=== PATIENT | female | born 1995 | race Two or more races ===

== ENCOUNTER 2017-05-15 11:17 | Day surgery (SDC) | payer MEDICAID ==
--- NOTE | 2017-05-15 10:24 | PREOP HISTORY & PHYSICAL ---
DATE OF ADMISSION/SURGERY: 05/15/2017 IDENTIFICATION: A 22-year-old G2, P1-0-0-1 with an 8-week 1-day intrauterine , EDC is 12/24/2017. HISTORY OF PRESENT ILLNESS: The patient presents today with 2 problems. The first is that she desires a sexually transmitted disease screening. Her ex- boyfriend had given her chlamydia in the past and she feels like this is happening again secondary to her vaginal discharge that is yellow. In addition, she has recognized that she is . She had an unsure LMP of 03/19/2017. This gave an EDC of 12/24/2017 at 8 weeks 0 days. A transabdominal ultrasound from the clinic shows a single viable intrauterine measuring 8 weeks 0 days, crown/rump length of 1.58 cm, and 168 beats per minute. I had a long discussion with the patient regarding the risks, benefits, alternatives, indications and expectations of: 1) Termination of the with suction dilatation and curettage. 2) Keeping the and the baby once he/she is born. 3) Continuing with the but placing the baby up for adoption. I stressed to her that this is a very difficult situation and that there is no right answer with the exception of the decision that she makes. Though very tearful, she has opted to terminate the . As difficult as it is for her to take care of herself and a 2-year-old son, she cannot imagine having to take care of another child. I verbalized my support for her and will help her through whichever decision she has made. Currently, the patient is doing well. She denies any nausea, vomiting, fevers, chills, diarrhea or constipation. She also denies any cramping or vaginal bleeding. PAST MEDICAL HISTORY: Depression. PAST SURGICAL HISTORY: None. ALLERGIES: NO KNOWN DRUG ALLERGIES. MEDICATIONS: None. SOCIAL HISTORY: The patient, though living with her parents, is going to get a place of her own in the near future with her son, Rai. Santoro is 2 years old. She is working currently and does not want to lose her job. She recently broke up with her boyfriend, with whom she got with. PAST OBSTETRICAL HISTORY: One term spontaneous vaginal delivery of her son Yvan with Apgars of 9 and 9 at 1 and 5 minutes respectively. Weight was 5 pounds 2 ounces. Complications of gestational hypertension with the patient being on labetalol 100 mg b.i.d. Yvan's father is different from this current . PAST GYNECOLOGIC HISTORY: She has a history of chlamydia at least twice and fears she has been exposed recently to it again. She has not had any Pap smears. FAMILY HISTORY: Noncontributory. REVIEW OF SYSTEMS: She is negative for nausea, vomiting, fevers, chills, diarrhea, constipation. OBJECTIVE VITAL SIGNS: Weight is 128 pounds, height is 64 inches, BMI is 22, blood pressure 114/76. GENERAL: The patient is a well-developed, well-nourished, / female. She is intelligent and understandably upset, tearful and frightened. HEENT: Within normal limits. CARDIOVASCULAR: Rate is regular. No murmurs or rubs. PULMONARY: Lungs clear to auscultation bilaterally. ABDOMEN: Soft and nontender. No peritoneal signs. Transabdominal ultrasound revealed a single viable intrauterine measuring 8 weeks 0 days with a crown/rump length of 1.58 cm. heart rate is 168 beats per minute. Thin prep Pap smear, gonorrhea/chlamydia, Affirm performed today. PLAN 1. Discussed with the patient the risks, benefits, alternatives, indications and expectations of a suction dilatation and curettage. I discussed with her the risk of infection and hemorrhage most commonly in this procedure, and inadvertent uterine perforation. Unfortunately, in her situation if she made her decision to proceed with the termination, the sooner she has this done the decreased risks she will have. The patient has decided to proceed with termination. Due to her lack of insurance, we will need to have her see the patient financial rep at [facility] first. Consent forms have been signed. 2. Should we be able to proceed with a suction dilatation and curettage tomorrow on 05/15/2017, we will have her take Cytotec 600 mcg sublingually in Ambulatory Surgery in order to facilitate the procedure. Will also anticipate giving her Methergine for the next 2 days in order to minimize any postop bleeding. 3. She will see me for routine 2-week postop visit as well as to discuss contraception. She did have the Mirena IUD in the past but had it removed secondary to concern of a chlamydial infection. JOB #: [id number] EXT JOB #:[id number] [id number]
[~2017-05-15 11:17] MED LIST: CELECOXIB 100 MG CAPSULE PO ONE; ceFAZolin 1 GM VIAL ONE; miSOPROStol 200 MCG TABLET ONE
[2017-05-15] MEDS ORDERED: LACTATED RINGERS 1,000 ML IV ONE (11:38)
[2017-05-15] MEDS ORDERED: miSOPROStol 200 MCG TABLET PR ONE (12:22)
[2017-05-15] MEDS ORDERED: ACETAMINOPHEN 1,000 MG/100 ML 100 ML IV ONE (12:38)
--- NOTE | 2017-05-15 12:47 | OPERATIVE REPORT ---
Operative Report - Other Other Information/Narrative: Date of operation: 05/15/2017 Surgeon: Bertha Mccoy DO FACOG Telegraph Operator: None Anesthesiologist: Alejandra Rivers MD Anesthesia: GET Pre-op Dx: 1. 22 yo with a 8w1d IUP 2. Desired termination of Post-op Dx: 1. 22 yo with a 8w1d IUP 2. Desired termination of Procedure: Suction dilation and curettage Findings: Products of conception Specimens: Uterine curettings EBL: 50 mL Drains: None Complications: None Dictation #: [id number]
[2017-05-15 14:17] VITALS: BP 114/55
--- NOTE | 2017-05-16 06:45 | OPERATIVE REPORT ---
DATE OF SURGERY: 05/15/2017 00:00:00 SURGEON: Bertha Mccoy DO. HOT TOP LINER HELPER: None. ANESTHESIOLOGIST: Alejandra Rivers MD. ANESTHESIA: General, endotracheal tube. PREOPERATIVE DIAGNOSES 1. A 22-year-old G2, P1-0-0-1 with an 8-week and 1-day intrauterine . 2. Desires termination of . POSTOPERATIVE DIAGNOSES 1. A 22-year-old G2, P1-0-0-1 with an 8-week and 1-day intrauterine . 2. Desires termination of . PROCEDURE: Suction dilatation and curettage. FINDINGS: Products of conception. SPECIMENS: Uterine curettings. ESTIMATED BLOOD LOSS: 50 mL. DRAINS: None. COMPLICATIONS: None. BRIEF HISTORY: This is a patient of [facility], [place] who found herself in a difficult position. She had an undesired and wanted to proceed with termination of the . I counseled her on her options of termination, maintaining the and keeping the baby, and finally maintaining the and adopting the baby out. Furthermore, should she desire termination of , I discussed with the patient the risks, benefits, alternatives, indications, and expectations of suction dilatation and curettage. Included in our discussion were the risks of hemorrhage, infection, and uterine perforation. After all of her questions were answered to her satisfaction, she verbalized her desire to proceed with termination of via suction dilatation and curettage. Consent forms have been signed. OPERATION IN DETAIL: The patient was identified, consented, and taken to the operating room where IV access was already in place. Sequential compression devices were placed on the lower extremities and turned on. She was given 1 gram on Ancef IV. She was then given satisfactory general endotracheal tube anesthesia as per Dr. Rivers. She was then prepped and draped in the normal sterile fashion in the lithotomy position using yellow-fin stirrups. Her bladder was also drained with in and out catheter. Timeout was performed, which correctly identified the patient, site of procedure, and the procedure itself. A single tooth tenaculum was placed on the anterior lip of the cervix. The cervix was then dilated to 8-Uzbek. The uterus was sounded to 8 cm. With a curved rigid 8-Uzbek suction curette, the uterus was satisfactorily curetted. This was continued until uterine cry was palpated throughout the entire endometrium. At this point in time, the procedure had been completed. All instruments were removed out of the vagina. The cervix and the vagina were significantly stable. The patient tolerated the procedure well. She came back to her room in stable condition. She will be discharged home later today after postoperative criteria have been met. She has been given prescriptions for Methergine for prevention of postoperative hemorrhage. This is in addition to the Cytotec 200 mcg 4 tablets that were given to her per rectum at the completion of the procedure. She also will take Midol and has a prescription for Vicodin for any breakthrough pain. She is to see me in 2 weeks for a postoperative examination as well. We will discuss in detail what form of contraception she would like to have. She understands to call me should she have any worsening fevers, chills, abdominal pain, vaginal bleeding. All sponge, lap, and needle counts were correct per nurse report. JOB #: [id number] EXT JOB #:[id number] ALANNA
== END 2017-05-15 11:18 | disposition home or self-care (01) ==
LOC: SDS 11:17
PROVIDERS: ATTEND Obstetrics & Gynecology
PROC: 10A07Z6 Abortion of Products of Conception, Vacuum, Via Natural or Artificial Opening (ICD-10-PCS; principal; 2017-05-15 12:30)
DX: Z33.2 Encounter for elective termination of pregnancy (principal); F17.200 Nicotine dependence, unspecified, uncomplicated
CPT/HCPCS: 59841; A9270; J0131; J7120; 88305

== ENCOUNTER 2017-05-16 13:21 | Emergency (ER) | payer MEDICAID ==
[2017-05-16] MEDS ORDERED: KETOROLAC 60 MG/2 ML VIAL IVP STA (14:23)
[2017-05-16] MEDS ORDERED: SODIUM CHLORIDE 0.9% 1,000 ML IV ONE (14:23)
--- NOTE | 2017-05-16 14:25 | ED Physician Documentation ---
History of Present Illness - Stated complaint Stated Complaint: SURGICAL SITE PAIN - Chief complaint Chief Complaint: Abd Pain - History obtained from History obtained from: Patient - History of Present Illness Timing: Today - Additonal information Additional information: 22 y/o female had a D&C done yesterday in the OR by Dr. Mccoy and she had the usual post op pain and went home last night feeling well. She has developed severe pain in the suprapubic area. She is feeling light headed and has severe cramping pain. The vicoden she took at 1247 did not help. Review of Systems Constitutional: reports: Myalgias. denies: Fever, Chills Eyes: denies: Decreased vision Ears: denies: Ear pain Nose: denies: Congestion Throat: denies: Sore throat Cardiac: denies: Chest pain / pressure Respiratory: denies: Dyspnea, Cough GI: reports: Abdominal Pain, Nausea : denies: Dysuria, Frequency Skin: denies: Rash Musculoskeletal: reports: Back pain. denies: Neck pain, Extremity pain Neurologic: denies: Generalized weakness, Focal weakness, Numbness PD PAST MEDICAL HISTORY - Past Medical History Cardiovascular: None Respiratory: None Endocrine/Autoimmune: None GI: None : None HEENT: None Psych: Anxiety Musculoskeletal: None Derm: None - Past Surgical History Past Surgical History: No - Present Medications Home Medications: Ambulatory Orders Medication Instructions Recorded Confirmed Hydrocodone/Acetaminophen [Vicodin 1 tab PO .FREQ 05/16/17 05/16/17 5-300 mg Tablet] - Allergies Allergies/Adverse Reactions: Allergies Allergy/AdvReac Type Severity Reaction Status Date / Time No Known Drug Allergies Allergy Verified 05/16/17 13:29 - Social History Does the pt smoke?: Yes Smoking Status: Current every day smoker Does the pt drink ETOH?: No Does the pt have substance abuse?: No PD ED PE NORMAL - Vitals Vital signs reviewed: Yes (normal ) - General General: No acute distress, Well developed/nourished - HEENT HEENT: Atraumatic, PERRL, EOMI - Neck Neck: Supple, no meningeal sign - Cardiac Cardiac: RRR, No murmur - Respiratory Respiratory: No respiratory distress, Clear bilaterally - Abdomen Abdomen: Soft, Other (There is specific suprapubic tenderness that is reproducible. ) - Back Back: No CVA TTP, No spinal TTP - Derm Derm: Normal color, Warm and dry - Extremities Extremities: No deformity, No edema - Neuro Neuro: Alert and oriented X 3, No motor deficit, No sensory deficit, Normal speech - Psych Psych: Normal mood, Normal affect Results - Vitals Vitals: Vital Signs - 24 hr 05/16/17 05/16/17 05/16/17 13:27 15:29 15:56 Temperature 36.8 C Heart Rate 88 106 H 98 Respiratory 19 18 16 Rate Blood Pressure 97/63 113/52 L 95/46 L O2 Saturation 98 98 97 Oxygen O2 Source Room air - Labs Labs: Laboratory Tests 05/16/17 05/16/17 05/16/17 13:50 13:50 16:50 WBC 11.7 H RBC 4.07 L Hgb 12.5 Hct 36.2 L MCV 89.1 MCH 30.9 MCHC 34.6 RDW 12.9 Plt Count 162 MPV 8.1 Neut # 9.9 H Lymph # 1.6 [place] # 0.2 Eos # 0.0 Baso # 0.0 Absolute Nucleated RBC 0.00 Nucleated RBCs 0.0 Sodium 135 Potassium 2.7 L Chloride 105 Carbon Dioxide 20 L Anion Gap 10.0 BUN 8 Creatinine 0.6 Estimated GFR (MDRD) 126 Glucose 108 H Calcium 8.9 Total Bilirubin 0.6 AST 22 ALT 16 Alkaline Phosphatase 60 Total Protein 7.0 Albumin 4.3 Globulin 2.7 Albumin/Globulin Ratio 1.6 Lipase 16 L Urine Color YELLOW Urine Clarity HAZY Urine pH 6.5 Ur Specific [place] <=1.005 Urine Protein NEGATIVE Urine Glucose (UA) NEGATIVE Urine Ketones NEGATIVE Urine Occult Blood LARGE H Urine Nitrite NEGATIVE Urine Bilirubin NEGATIVE Urine Urobilinogen 0.2 (NORMAL) Ur Leukocyte Esterase TRACE H Urine RBC 0-5 Urine WBC 6-10 H Urine WBC Clumps PRESENT Ur Squamous Epith Cells MOD Squamous H Urine Bacteria Many H Ur Microscopic Review INDICATED Urine Culture Comments NOT INDICATED Procedures - Bedside sono Bedside sono by EMP: with the use of bedside ultrasound there is a small amount of fluid in the culdesac. There is no free fluid in Olson's pouch. PD MEDICAL DECISION MAKING - ED course Complexity details: reviewed old records, reviewed results, re-evaluated patient , considered differential, d/w patient, d/w family, d/w clinical practice consultant (Dr. Black recommends treatment of the pain and treatment of a chlamydia infection that was apparently not treated previously ) ED course: 22-year-old female had a D&C done yesterday and today has acute cramping postoperative pain that is out of control. Here in the emergency department an IV is begun and she is given IV Toradol with some relief and she is subsequently given intravenous Dilaudid with good relief of her pain. She has a Chlamydia infection that has not been treated and here in the emergency department she is given 1 g of azithromycin intravenously. With the use of bedside ultrasound the pelvis is imaged and there is trace fluid present. Her potassium is low and this is replaced as well with potassium bicarbonate 25mEq X 2 . Departure - Departure Disposition: 01 Home, Self Care Clinical Impression: Post-operative pain, Hypokalemia, Chlamydia Instructions: ED Potassium Deficiency, Dilation and Curettage, ED Chlamydia Female Follow-Up: Bertha Mccoy DO [Provider Admit Priv/Credential] -
[2017-05-16] MEDS ORDERED: KETOROLAC 30 MG/ML VIAL ONE (14:31)
[2017-05-16 14:38] LABS: EOSINOPHILS % (AUTO) 0.3 %; HCT - HEMATOCRIT 36.2 % (37.0-47.0); HGB - HEMOGLOBIN 12.5 g/dL (12.0-16.0); LYMPHOCYTES # (AUTO) 1.6 10^3/uL (1.5-3.5); LYMPHOCYTES % (AUTO) 13.6 %; MEAN CORPUSCULAR HEMOGLOBIN 30.9 pg (27.0-31.0); MEAN CORPUSCULAR HGB CONC 34.6 g/dL (32.0-36.0); MEAN CORPUSCULAR VOLUME 89.1 fL (81.0-99.0); MEAN PLATELET VOLUME 8.1 fL (7.9-10.8); MONOCYTES # (AUTO) 0.2 10^3/uL (0.0-1.0); MONOCYTES % (AUTO) 1.6 %; NEUTROPHILS # (AUTO) 9.9 10^3/uL (1.5-6.6); NEUTROPHILS % (AUTO) 84.5 %; RED BLOOD COUNT 4.07 10^6/uL (4.20-5.40); RED CELL DISTRIBUTION WIDTH 12.9 % (12.0-15.0); UNCORRECTED WHITE BLOOD COUNT 11.7 x10^3/uL; WHITE BLOOD COUNT 11.7 x10^3/uL (4.8-10.8)
[2017-05-16 14:48] LABS: ALBUMIN/GLOBULIN RATIO 1.6 (1.0-2.2); BILIRUBIN,TOTAL 0.6 mg/dL (0.2-1.0); CALCIUM 8.9 mg/dL (8.5-10.3); CREATININE 0.6 mg/dL (0.4-1.0); POTASSIUM 2.7 mmol/L (3.5-5.0)
[2017-05-16] MEDS ORDERED: AZITHROMYCIN INJ 1,000 MG in SODIUM CHLORIDE 0.9% 250 ML IV STA (15:11)
[2017-05-16] MEDS ORDERED: POTASSIUM BICARB 25 MEQ TABLET PO STA ×2 (15:12→16:23)
[2017-05-16] MEDS ORDERED: SODIUM CHLORIDE 0.9% 250 ML IV ONE (15:16)
[2017-05-16] MEDS ORDERED: POTASSIUM BICARB 25 MEQ TABLET PO ONE ×2 (15:16→16:28)
[2017-05-16] MEDS ORDERED: HYDROmorphone 1 MG/ML SYRINGE IVP STA (15:30)
[2017-05-16] MEDS ORDERED: HYDROmorphone 1 MG/ML SYRINGE ONE (15:38)
[2017-05-16 17:03] LABS: BILIRUBIN,URINE NEGATIVE (NEGATIVE); PH,URINE 6.5 PH (5.0-7.5); UA w/ MICROSCOPIC CHARGE YES
[2017-05-16 17:09] LABS: UR CULTURE IF IND NOT INDICATED
[2017-05-16] MEDS ORDERED: cefTRIAXone 1 GM in SODIUM CHLORIDE 0.9% MINIBAG 100 ML IV STA (17:10)
[2017-05-16] MEDS ORDERED: cefTRIAXone 1 GM VIAL ONE (17:27)
[2017-05-16 19:13] VITALS: BP 105/57
== END 2017-05-16 17:52 | disposition home or self-care (01) ==
LOC: ED 13:21
DX: G89.18 Other acute postprocedural pain (principal); R10.2 Pelvic and perineal pain; E87.6 Hypokalemia; A74.9 Chlamydial infection, unspecified
CPT/HCPCS: 36415; 80053; 81001; 83690; 85025; 96361; 96365; 96367; 96375; 99284; 99285; A9270; J1170; 81003; 87086

== ENCOUNTER 2017-07-05 11:41 | Emergency (ER) | payer MEDICAID ==
[2017-07-05 11:53] VITALS: BP 119/79
--- NOTE | 2017-07-05 12:23 | ED Physician Documentation ---
PD HPI BACK PAIN - Stated complaint Stated Complaint: BACK PX - Chief complaint Chief Complaint: Back Pain - History obtained from History obtained from: Patient, Family (mother) - History of Present Illness Timing - onset: How many weeks ago (2) Timing - details: Waxing and waning Location: Lower Quality: Pain, Spasm Associated symptoms: No: Fever, Weakness, Numbness, Incontinent of urine Worsened by: Movement, Lifting Contributing factors: Lifting Similar symptoms before: Has not had sx before - Treatment prior to arrival Treatment prior to arrival: Tylenol and ibuprofen without relief. - Additional information Additional information: The patient is an otherwise healthy 22-year-old female who presents with lower back pain of 2 weeks' duration. 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 She has been using Tylenol and ibuprofen without relief. She denies fever, dysuria, urinary incontinence, or neurologic deficits in her lower extremities. She denies history of similar symptoms in the past. Review of Systems Constitutional: denies: Fever Nose: denies: Congestion Cardiac: denies: Chest pain / pressure Respiratory: denies: Dyspnea, Cough GI: denies: Abdominal Pain, Nausea, Vomiting : denies: Dysuria, Incontinent Skin: denies: Rash Musculoskeletal: reports: Back pain. denies: Neck pain, Extremity pain Neurologic: denies: Focal weakness, Numbness, Headache PD PAST MEDICAL HISTORY - Past Medical History Cardiovascular: None Respiratory: None Endocrine/Autoimmune: None GI: None : None HEENT: None Psych: Anxiety Musculoskeletal: None Derm: None - Past Surgical History Past Surgical History: No - Present Medications Home Medications: Ambulatory Orders Medication Instructions Recorded Confirmed Cyclobenzaprine [Flexeril] 10 mg PO TID PRN #20 tablet 07/05/17 HYDROcod/ACETAM 5/325 [[place] 5/325] 1 - 2 ea PO Q6H PRN #15 tablet 07/05/17 - Allergies Allergies/Adverse Reactions: Allergies Allergy/AdvReac Type Severity Reaction Status Date / Time No Known Drug Allergies Allergy Verified 07/05/17 11:53 - Social History Does the pt smoke?: Yes Smoking Status: Current every day smoker Does the pt drink ETOH?: No Does the pt have substance abuse?: No - Immunizations Immunizations are current?: Yes - POLST Patient has POLST: No PD ED PE NORMAL - Vitals Vital signs reviewed: Yes (normal) - General General: Alert and oriented X 3, Well developed/nourished - HEENT HEENT: Atraumatic, EOMI - Neck Neck: No bony TTP - Cardiac Cardiac: RRR, No murmur - Respiratory Respiratory: No respiratory distress, Clear bilaterally - Abdomen Abdomen: Soft, Non tender, No organomegaly - Back Back: No CVA TTP, No spinal TTP, Other (There is tenderness to palpation in the paralumbar musculature, more on the left than the right. Associated paraspinous muscle spasms are detected.) - Derm Derm: No rash - Extremities Extremities: No edema, No calf tenderness / cord, Other (Straight leg raise test is negative bilaterally.) - Neuro Neuro: Alert and oriented X 3, No motor deficit, No sensory deficit, Other ( Deep tendon reflexes are 2+ and equal bilaterally at the patellar and Achilles tendons.) Results - Vitals Vitals: Oxygen O2 Source Room air PD MEDICAL DECISION MAKING - ED course Complexity details: considered differential, d/w patient, d/w family ED course: The patient's presentation is most consistent with acute lumbar strain. There is no clinical indication for imaging studies at this time. I discussed with her and her mother symptomatic treatment, outpatient follow-up, as well as potentially worrisome signs or symptoms that should prompt reevaluation in the emergency department. She is being discharged with prescriptions for Flexeril and for Vicodin, 15 tablets. Departure - Departure Disposition: 01 Home, Self Care Clinical Impression: Low back pain Qualifiers: Chronicity: acute Back pain laterality: bilateral Sciatica presence: without sciatica Qualified Code(s): M54.5 - Low back pain Condition: Stable Instructions: ED Sprain Strain Lumbar Follow-Up: Sherley Joy ARNP [Primary Care Provider] - Prescriptions: Cyclobenzaprine [Flexeril] 10 mg PO TID PRN #20 tablet PRN Reason: Spasms HYDROcod/ACETAM 5/325 [[place] 5/325] 1 - 2 ea PO Q6H PRN #15 tablet PRN Reason: Pain Comments: Apply ice pack to your lower back intermittently for the next 3 or 4 days. You can use ibuprofen, up to 600 mg 3 times daily for its anti-inflammatory effect. You can use Vicodin as prescribed if needed for pain. You can use Flexeril as prescribed as needed for muscle spasm. Let pain be your guide to activity level. Follow-up with your primary physician within 1-2 weeks. Call to schedule an appointment. Return to the emergency department if you develop increasing pain, urinary incontinence, numbness or weakness in your legs, or otherwise worsening symptoms. Forms: Activity restrictions Discharge Date/Time: 07/05/17 12:33
== END 2017-07-05 12:33 | disposition home or self-care (01) ==
LOC: ED 11:41
DX: M54.5 Low back pain (principal); F17.200 Nicotine dependence, unspecified, uncomplicated
CPT/HCPCS: 99283

== ENCOUNTER 2017-09-18 17:54 | Emergency (ER) | payer MEDICAID ==
[2017-09-18 18:05] VITALS: BP 123/89
[2017-09-18] MEDS ORDERED: CYCLOBENZAPRINE 10 MG TABLET PO STA (18:17)
[2017-09-18] MEDS ORDERED: KETOROLAC 60 MG/2 ML VIAL IM STA (18:17)
[2017-09-18] MEDS ORDERED: DEXAMETHASONE 10 MG/ML VIAL PO STA (18:17)
--- NOTE | 2017-09-18 18:22 | ED Physician Documentation ---
PD HPI BACK PAIN - Stated complaint Stated Complaint: BACK PX - Chief complaint Chief Complaint: Back Pain - History obtained from History obtained from: Patient, Family, Friend - History of Present Illness Timing - onset: Today Timing - duration: Hours (1) Timing - details: Abrupt onset Pain level max: 8 Pain level now: 8 Location: Lower, Right, Left Quality: Pain, Spasm, Aching, Similar to prior episodes Associated symptoms: No: Fever, Weakness, Numbness, Incontinent of urine, Unable to urinate, Hematuria, Incontinent of stool Improves with: Rest Worsened by: Movement, Lifting Contributing factors: Other (started when lifting her child) Similar symptoms before: Diagnosis (back spams) Recently seen: Not recently seen (last seen here 3 months ago for same.) Review of Systems Ten Systems: 10 systems reviewed and negative Constitutional: denies: Fever, Chills Throat: denies: Sore throat Cardiac: denies: Chest pain / pressure GI: denies: Abdominal Pain, Nausea, Vomiting, Diarrhea : denies: Dysuria, Frequency, Hesitancy, Discharge, Now EGA Skin: denies: Rash Musculoskeletal: denies: Neck pain Neurologic: denies: Focal weakness, Numbness, Headache PD PAST MEDICAL HISTORY - Past Medical History Cardiovascular: None Respiratory: None Endocrine/Autoimmune: None GI: None : None HEENT: None Psych: Anxiety Musculoskeletal: None Derm: None - Past Surgical History Past Surgical History: Yes - Present Medications Home Medications: Ambulatory Orders Medication Instructions Recorded Confirmed Cyclobenzaprine [Flexeril] 10 mg PO TID PRN #20 tablet 09/18/17 Meloxicam [Mobic] 15 mg PO DAILY PRN #20 tablet 09/18/17 - Allergies Allergies/Adverse Reactions: Allergies Allergy/AdvReac Type Severity Reaction Status Date / Time No Known Drug Allergies Allergy Verified 07/05/17 11:53 - Social History Does the pt smoke?: Yes Smoking Status: Current every day smoker Does the pt drink ETOH?: No Does the pt have substance abuse?: No - Immunizations Immunizations are current?: Yes - POLST Patient has POLST: No PD ED PE NORMAL - Vitals Vital signs reviewed: Yes - General General: Alert and oriented X 3, No acute distress, Well developed/nourished - HEENT HEENT: PERRL, Moist mucous membranes - Neck Neck: Supple, no meningeal sign - Cardiac Cardiac: RRR, Strong equal pulses - Respiratory Respiratory: No respiratory distress, Clear bilaterally - Abdomen Abdomen: Soft, Non tender, Non distended - Back Back: Other (No midline tenderness to palpation. There is paraspinal spasm present bilateral lower lumbar.) - Derm Derm: Warm and dry - Extremities Extremities: No edema, No calf tenderness / cord, Other (normal bilateral lower extremity patellar and ankle jerk reflexes. 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, No motor deficit, No sensory deficit - Psych Psych: Normal mood, Normal affect Results - Vitals Vitals: Vital Signs - 24 hr 09/18/17 18:02 Temperature 36.9 C Heart Rate 89 Respiratory 18 Rate Blood Pressure 123/89 H O2 Saturation 98 Oxygen O2 Source Room air PD MEDICAL DECISION MAKING - ED course Complexity details: re-evaluated patient, considered differential (no cauda equina, no spinal epidural abscess, no fracture, no aortic dissection or evidence of aneursym rupture), d/w patient ED course: Patient is a 22-year-old female who presents to the emergency department with what appears to be musculoskeletal strain of the low back. No evidence of cauda equina, epidural abscess. Normal neurological exam. Steady gait. Feels better after Flexeril and Toradol. Also given dexamethasone. No midline tenderness to suggest fracture. Patient counseled regarding signs and symptoms for which I believe and urgent re-evaluation would be necessary. Patient with good understanding of and agreement to plan and is comfortable going home at this time This document was made in part using voice recognition software. While efforts are made to proofread this document, sound alike and grammatical errors may occur. Departure - Departure Disposition: 01 Home, Self Care Clinical Impression: Back spasm Condition: Good Instructions: ED Low Back Pain Injury Follow-Up: your,doctor in 1 week [Other] Prescriptions: Cyclobenzaprine [Flexeril] 10 mg PO TID PRN #20 tablet PRN Reason: Spasms Meloxicam [Mobic] 15 mg PO DAILY PRN #20 tablet PRN Reason: pain Comments: Return if you worsen. This should improve over the next few days. Discharge Date/Time: 09/18/17 18:42
[2017-09-18] MEDS ORDERED: DEXAMETHASONE 10 MG/ML VIAL ONE (18:26)
[2017-09-18] MEDS ORDERED: CYCLOBENZAPRINE 10 MG TABLET PO ONE (18:26)
[2017-09-18] MEDS ORDERED: KETOROLAC 60 MG/2 ML VIAL ONE (18:26)
== END 2017-09-18 18:42 | disposition home or self-care (01) ==
LOC: ED 17:54
DX: M62.830 Muscle spasm of back (principal); F17.200 Nicotine dependence, unspecified, uncomplicated
CPT/HCPCS: 96372; 99283

== ENCOUNTER 2017-10-28 23:19 | Outpatient (CLI) | payer MEDICAID | END 2017-10-28 23:20 | disposition critical access hospital (66) | LOC: EMS 23:19 | PROVIDERS: ATTEND Surgery | DX: R10.9 Unspecified abdominal pain (principal) | CPT/HCPCS: A0425; A0427 ==

== ENCOUNTER 2017-10-28 23:36 | Emergency (ER) | payer MEDICAID ==
--- NOTE | 2017-10-28 23:57 | ED Physician Documentation ---
PD HPI FEMALE - Stated complaint Stated Complaint: ABD PAIN, CRAMPING - Chief complaint Chief Complaint: Abd Pain - History obtained from History obtained from: Patient - History of Present Illness Timing - onset: How many days ago (2) Timing - duration: Days (2) Timing - details: Gradual onset, Still present, Waxing and waning Associated symptoms: Abdominal pain (lower abd suprapubic area), Vaginal discharge, Urinary frequency. No: Fever, Genital sore/lesion, Dysuria Contributing factors: Sexually active. No: , Exposed to STD Similar symptoms before: Has not had sx before Recently seen: Clinic ([facility] about 3-4 weeks ago and treated for BV found on regular exam. She says she took much of the medication but had trouble remembering to do it twice daily.) Review of Systems Constitutional: denies: Fever Throat: denies: Oral lesions / sores, Sore throat Respiratory: denies: Dyspnea, Cough GI: reports: Abdominal Pain, Nausea, Vomiting : reports: Frequency, Discharge. denies: Dysuria, Missed period Skin: denies: Rash, Lesions PD PAST MEDICAL HISTORY - Past Medical History Cardiovascular: None Respiratory: None Endocrine/Autoimmune: None GI: None : None HEENT: None Psych: Anxiety Musculoskeletal: None Derm: None - Past Surgical History Past Surgical History: Yes - Present Medications Home Medications: Ambulatory Orders Medication Instructions Recorded Confirmed Fluconazole [Diflucan] 150 mg PO ONCE #1 tablet 10/29/17 Ondansetron Odt [Zofran] 4 mg TL Q6H PRN #15 tablet 10/29/17 - Allergies Allergies/Adverse Reactions: Allergies Allergy/AdvReac Type Severity Reaction Status Date / Time No Known Drug Allergies Allergy Verified 10/28/17 23:44 - Social History Does the pt smoke?: Yes Smoking Status: Current every day smoker Does the pt drink ETOH?: No Does the pt have substance abuse?: No - Immunizations Immunizations are current?: Yes - POLST Patient has POLST: No PD ED PE NORMAL - Vitals Vital signs reviewed: Yes - General General: Alert and oriented X 3, No acute distress, Well developed/nourished - HEENT HEENT: Pharynx benign - Neck Neck: Supple, no meningeal sign, No adenopathy - Cardiac Cardiac: RRR, No murmur - Respiratory Respiratory: Clear bilaterally - Abdomen Abdomen: Soft, Non tender, Non distended - Female Female : Pot Puller present, Other (external normal. Vault with thicker white discharge c/w yeast and wall inflammation and redness. Cervical os without discharge. ) - Rectal Rectal: Deferred - Back Back: No CVA TTP - Derm Derm: Normal color, Warm and dry Results - Vitals Vitals: Vital Signs - 24 hr 10/28/17 10/29/17 10/29/17 23:42 02:21 02:35 Temperature 36.7 C 36.8 C 36.5 C Heart Rate 86 80 80 Respiratory 18 18 16 Rate Blood Pressure 127/75 118/64 132/77 H O2 Saturation 97 99 100 Oxygen O2 Source Room air - Labs Labs: Microbiology 10/29/17 01:10 Wet Prep - Final Vaginal Laboratory Tests 10/28/17 10/29/17 10/29/17 23:16 00:20 00:20 WBC 8.0 RBC 4.31 Hgb 13.1 Hct 38.1 MCV 88.5 MCH 30.3 MCHC 34.2 RDW 12.4 Plt Count 212 MPV 7.8 L Neut # 6.2 Lymph # 1.2 L [place] # 0.5 Eos # 0.1 Baso # 0.0 Absolute Nucleated RBC 0.00 Nucleated RBC % 0.0 Sodium 139 Potassium 3.4 L Chloride 107 Carbon Dioxide 21 Anion Gap 11.0 BUN 7 Creatinine 0.6 Estimated GFR (MDRD) 126 Glucose 159 H Calcium 9.1 Total Bilirubin 0.3 AST 32 ALT 19 Alkaline Phosphatase 83 Total Protein 7.5 Albumin 4.2 Globulin 3.3 Albumin/Globulin Ratio 1.3 Lipase 16 L Urine Color YELLOW Urine Clarity CLEAR Urine pH 6.0 Ur Specific [place] <=1.005 Urine Protein NEGATIVE Urine Glucose (UA) NEGATIVE Urine Ketones NEGATIVE Urine Occult Blood NEGATIVE Urine Nitrite NEGATIVE Urine Bilirubin NEGATIVE Urine Urobilinogen 0.2 (NORMAL) Ur Leukocyte Esterase NEGATIVE Ur Microscopic Review NOT INDICATED Urine Culture Comments NOT INDICATED Urine HCG, Qual NEGATIVE PD MEDICAL DECISION MAKING - ED course Complexity details: considered differential (seems like yeast vaginitis, and there is vaginal wall inflammation, which presumedly is leading to the partial urinary retention (200 ml).), d/w patient Departure - Departure Disposition: 01 Home, Self Care Clinical Impression: Yeast vaginitis, Lower abdominal pain, Acute urinary retention Condition: Stable Record reviewed to determine appropriate education?: Yes Instructions: ED Abdominal Pain Unkn Cause, ED Vaginal Infec Fungal Caprice Prescriptions: Fluconazole [Diflucan] 150 mg PO ONCE #1 tablet Ondansetron Odt [Zofran] 4 mg TL Q6H PRN #15 tablet PRN Reason: Nausea / Vomiting Comments: The lab test today does not show any bacterial vaginal infection so that appears to have cleared. However it does appear to be a yeast infection now and that can be treated with a single dose antifungal now repeated in 3 or 4 days. Use Tylenol or ibuprofen if needed for pains. You were having some urinary retention and I think that accounts for the lower abdominal cramping and fullness. Your urine test does not show signs of infection. I presume there is some inflammation in the vaginal wall causing the outflow problem from the bladder. This should improve with treatment of the vaginitis. Recheck if not improved over the next 2-3 days. Use ondansetron if needed for nausea. Discharge Date/Time: 10/29/17 02:43
[2017-10-29 00:18] LABS: BILIRUBIN,URINE NEGATIVE (NEGATIVE)
[2017-10-29 00:19] LABS: HCG UR QUAL NEGATIVE; UA CHARGE (STRIP ONLY) YES; UR CULTURE IF IND NOT INDICATED
[2017-10-29] MEDS ORDERED: KETOROLAC 60 MG/2 ML VIAL IVP STA (00:24)
[2017-10-29] MEDS ORDERED: SODIUM CHLORIDE 0.9% 1,000 ML IV ONE (00:24)
[2017-10-29] MEDS ORDERED: ONDANSETRON 4 MG/2 ML VIAL IVP STA (00:24)
[2017-10-29] MEDS ORDERED: KETOROLAC 30 MG/ML VIAL ONE (00:42)
[2017-10-29] MEDS ORDERED: ONDANSETRON 4 MG/2 ML VIAL ONE (00:42)
[2017-10-29 00:48] LABS: BASOPHILS % (AUTO) 0.3 %; EOSINOPHILS # (AUTO) 0.1 10^3/uL (0.0-0.7); EOSINOPHILS % (AUTO) 0.7 %; HCT - HEMATOCRIT 38.1 % (37.0-47.0); HGB - HEMOGLOBIN 13.1 g/dL (12.0-16.0); LYMPHOCYTES # (AUTO) 1.2 10^3/uL (1.5-3.5); LYMPHOCYTES % (AUTO) 15.2 %; MEAN CORPUSCULAR HEMOGLOBIN 30.3 pg (27.0-31.0); MEAN CORPUSCULAR HGB CONC 34.2 g/dL (32.0-36.0); MEAN CORPUSCULAR VOLUME 88.5 fL (81.0-99.0); MEAN PLATELET VOLUME 7.8 fL (7.9-10.8); MONOCYTES # (AUTO) 0.5 10^3/uL (0.0-1.0); MONOCYTES % (AUTO) 6.1 %; NEUTROPHILS # (AUTO) 6.2 10^3/uL (1.5-6.6); NEUTROPHILS % (AUTO) 77.7 %; RED BLOOD COUNT 4.31 10^6/uL (4.20-5.40); RED CELL DISTRIBUTION WIDTH 12.4 % (12.0-15.0)
[2017-10-29 00:58] LABS: ALBUMIN/GLOBULIN RATIO 1.3 (1.0-2.2); BILIRUBIN,TOTAL 0.3 mg/dL (0.2-1.0); CALCIUM 9.1 mg/dL (8.5-10.3); CREATININE 0.6 mg/dL (0.4-1.0); POTASSIUM 3.4 mmol/L (3.5-5.0); TOTAL PROTEIN 7.5 g/dL (6.7-8.2)
[2017-10-29] MEDS ORDERED: DEXAMETHASONE 10 MG/ML VIAL IVP STA (02:03)
[2017-10-29] MEDS ORDERED: FLUCONAZOLE 100 MG TABLET PO STA (02:04)
[2017-10-29] MEDS ORDERED: FLUCONAZOLE 100 MG TABLET ONE (02:17)
[2017-10-29] MEDS ORDERED: DEXAMETHASONE 10 MG/ML VIAL ONE (02:18)
[2017-10-29 02:43] VITALS: BP 132/77
== END 2017-10-29 02:43 | disposition home or self-care (01) ==
LOC: EDUNIT# → EDBD → ED 23:36
DX: N89.8 Other specified noninflammatory disorders of vagina (principal); B37.3 Candidiasis of vulva and vagina; R33.9 Retention of urine, unspecified
CPT/HCPCS: 51798; 80053; 81003; 81025; 83690; 85025; 87210; 87491; 87591; 96361; 96374; 96375; 99283; 99284; A9270; 81001; 87086

== ENCOUNTER 2018-01-14 16:06 | Outpatient (CLI) | payer MEDICAID | END 2018-01-14 16:07 | disposition home or self-care (01) | LOC: LAB.R 16:06 | PROVIDERS: ATTEND Nurse Practitioner Obstetrics & Gynecology | DX: R82.90 Unspecified abnormal findings in urine (principal); N76.0 Acute vaginitis | CPT/HCPCS: 87086; 87480; 87491; 87510; 87591; 87660 ==

== ENCOUNTER 2018-01-16 10:17 | Outpatient (CLI) | payer MEDICAID | END 2018-01-16 10:18 | disposition home or self-care (01) | LOC: LAB.R 10:17 | PROVIDERS: ATTEND Nurse Practitioner Obstetrics & Gynecology | DX: N76.0 Acute vaginitis (principal) | CPT/HCPCS: 81599; 87102 ==

== ENCOUNTER 2018-01-26 22:52 | Outpatient (CLI) | payer MEDICAID | END 2018-01-26 22:53 | disposition critical access hospital (66) | LOC: EMS 22:52 | PROVIDERS: ATTEND Surgery | DX: R07.9 Chest pain, unspecified (principal) | CPT/HCPCS: A0425; A0429 ==

== ENCOUNTER 2018-01-26 23:11 | Emergency (ER) | payer MEDICAID ==
[2018-01-27 00:44] LABS: BASOPHILS % (AUTO) 0.4 %; EOSINOPHILS % (AUTO) 0.7 %; HGB - HEMOGLOBIN 14.2 g/dL (12.0-16.0); LYMPHOCYTES # (AUTO) 1.4 10^3/uL (1.5-3.5); LYMPHOCYTES % (AUTO) 21.2 %; MEAN CORPUSCULAR HEMOGLOBIN 30.1 pg (27.0-31.0); MEAN CORPUSCULAR HGB CONC 33.8 g/dL (32.0-36.0); MEAN CORPUSCULAR VOLUME 89.3 fL (81.0-99.0); MEAN PLATELET VOLUME 7.7 fL (7.9-10.8); MONOCYTES # (AUTO) 0.4 10^3/uL (0.0-1.0); MONOCYTES % (AUTO) 6.4 %; NEUTROPHILS # (AUTO) 4.7 10^3/uL (1.5-6.6); NEUTROPHILS % (AUTO) 71.3 %; PLT - PLATELET COUNT 211 10^3/uL (130-450); RED BLOOD COUNT 4.71 10^6/uL (4.20-5.40); RED CELL DISTRIBUTION WIDTH 12.2 % (12.0-15.0); WHITE BLOOD COUNT 6.5 x10^3/uL (4.8-10.8)
--- NOTE | 2018-01-27 00:45 | ED Physician Documentation ---
History of Present Illness - Stated complaint Stated Complaint: WEAKNESS - Chief complaint Chief Complaint: General - History obtained from History obtained from: Patient, EMS - History of Present Illness Timing: Prior to arrival, Today - Additonal information Additional information: 22-year-old female with history of anxiety tonight has developed some numbness to her fingertips and subsequently developed some pain in her left lateral chest. She stretched her arm at that time and has had pain in her anterior chest since. At the time this occurred she had just finished calling her instructor about an exam she was not going to be able to finish because of an online malfunction. She was given reprieve by the instructor but nevertheless the symptoms of hyperventilation occurred. Patient has states that she has some social anxiety that she is well aware of and she has not had panic attacks previously. She is concerned about the pain in her chest and would like a reassuring workup. Review of Systems Constitutional: denies: Fever, Chills, Myalgias, Fatigue, Sweats Eyes: denies: Loss of vision, Decreased vision Ears: reports: Drainage/discharge (from right ear). denies: Loss of hearing, Ear pain Nose: denies: Rhinorrhea / runny nose, Congestion Throat: denies: Dental pain / toothache, Sore throat Cardiac: reports: Chest pain / pressure. denies: Palpitations Respiratory: denies: Dyspnea, Cough GI: denies: Abdominal Pain, Abdominal Swelling, Nausea, Vomiting, Constipation, Diarrhea : denies: Dysuria, Frequency, Hematuria, Discharge Skin: denies: Rash Musculoskeletal: denies: Neck pain, Back pain, Extremity pain Neurologic: denies: Generalized weakness, Focal weakness, Numbness PD PAST MEDICAL HISTORY - Past Medical History Cardiovascular: None Respiratory: None Endocrine/Autoimmune: None GI: None : None HEENT: None Psych: Anxiety Musculoskeletal: None Derm: None - Past Surgical History Past Surgical History: Yes - Present Medications Home Medications: Ambulatory Orders Medication Instructions Recorded Confirmed Fluconazole [Diflucan] 150 mg PO ONCE #1 tablet 10/29/17 Ondansetron Odt [Zofran] 4 mg TL Q6H PRN #15 tablet 10/29/17 - Allergies Allergies/Adverse Reactions: Allergies Allergy/AdvReac Type Severity Reaction Status Date / Time No Known Drug Allergies Allergy Verified 01/26/18 23:18 - Social History Does the pt smoke?: Yes Smoking Status: Current every day smoker Does the pt drink ETOH?: No Does the pt have substance abuse?: No - Immunizations Immunizations are current?: Yes - POLST Patient has POLST: No PD ED PE NORMAL - Vitals Vital signs reviewed: Yes (hypertensive) - General General: Alert and oriented X 3, No acute distress, Well developed/nourished - HEENT HEENT: Atraumatic, PERRL, EOMI, Ears normal, Moist mucous membranes, Pharynx benign, Dentition benign - Neck Neck: Supple, no meningeal sign, No bony TTP - Cardiac Cardiac: RRR, No murmur, Other (There is some mild tenderness to the left pectoralis near the clavicle) - Respiratory Respiratory: No respiratory distress, Clear bilaterally - Abdomen Abdomen: Soft, Non tender - Back Back: No CVA TTP, No spinal TTP - Derm Derm: Normal color, Warm and dry, No rash - Extremities Extremities: No deformity, No edema - Neuro Neuro: Alert and oriented X 3, network support technician 2-12 intact, No motor deficit, No sensory deficit, Normal speech Eye Opening: Spontaneous Motor: Obeys Commands Verbal: Oriented GCS Score: 15 - Psych Psych: Normal mood, Normal affect Results - Vitals Vitals: Vital Signs - 24 hr 01/26/18 01/27/18 23:13 01:22 Temperature 37.0 C Heart Rate 94 70 Respiratory 15 18 Rate Blood Pressure 143/85 H 110/65 O2 Saturation 100 95 Oxygen O2 Source Room air - EKG (time done) 2337 Rate: Rate (enter#) (76) Rhythm: NSR Ischemia: Normal ST segments Compare to prior EKG: Old EKG unavailable Computer interpretation: Agree with computer - Labs Labs: Laboratory Tests 01/27/18 01/27/18 01/27/18 00:30 00:34 00:34 WBC 6.5 RBC 4.71 Hgb 14.2 Hct 42.0 MCV 89.3 MCH 30.1 MCHC 33.8 RDW 12.2 Plt Count 211 MPV 7.7 L Neut # 4.7 Lymph # 1.4 L [place] # 0.4 Eos # 0.0 Baso # 0.0 Absolute Nucleated RBC 0.00 Nucleated RBC % 0.0 Sodium 138 Potassium 3.7 Chloride 104 Carbon Dioxide 25 Anion Gap 9.0 BUN 12 Creatinine 0.6 Estimated GFR (MDRD) 126 Glucose 103 H Calcium 9.3 Total Bilirubin 0.4 AST 28 ALT 23 Alkaline Phosphatase 75 Troponin I Total Protein 7.9 Albumin 4.6 Globulin 3.3 Albumin/Globulin Ratio 1.4 Lipase 18 L Urine Color LT. YELLOW Urine Clarity CLEAR Urine pH 7.5 Ur Specific [place] <=1.005 Urine Protein NEGATIVE Urine Glucose (UA) NEGATIVE Urine Ketones NEGATIVE Urine Occult Blood NEGATIVE Urine Nitrite NEGATIVE Urine Bilirubin NEGATIVE Urine Urobilinogen 0.2 (NORMAL) Ur Leukocyte Esterase NEGATIVE Ur Microscopic Review NOT INDICATED Urine Culture Comments NOT INDICATED Urine HCG, Qual NEGATIVE 01/27/18 00:34 WBC RBC Hgb Hct MCV MCH MCHC RDW Plt Count MPV Neut # Lymph # [place] # Eos # Baso # Absolute Nucleated RBC Nucleated RBC % Sodium Potassium Chloride Carbon Dioxide Anion Gap BUN Creatinine Estimated GFR (MDRD) Glucose Calcium Total Bilirubin AST ALT Alkaline Phosphatase Troponin I < 0.04 Total Protein Albumin Globulin Albumin/Globulin Ratio Lipase Urine Color Urine Clarity Urine pH Ur Specific [place] Urine Protein Urine Glucose (UA) Urine Ketones Urine Occult Blood Urine Nitrite Urine Bilirubin Urine Urobilinogen Ur Leukocyte Esterase Ur Microscopic Review Urine Culture Comments Urine HCG, Qual - Rads (name of study) 2 veiw chest Radiology: Prelim report reviewed (Impression: 1. No acute abnormality seen in the chest.), EMP read indepedently, See rad report PD MEDICAL DECISION MAKING - ED course Complexity details: reviewed old records, reviewed results, re-evaluated patient , considered differential, d/w patient ED course: 22 y/o female with chest pain and a history consistent with hyperventilation syndrome was insistent on a work up and the work up is entirely reassuring. The patient does have some pain to palpation in the left upper chest that is explained by a stretch she did when she first started feeling the pins and needles in her chest and I assume she tore the muscle as she stretched against a spasm. Departure - Departure Disposition: 01 Home, Self Care Clinical Impression: Anxiety, Hyperventilation syndrome Instructions: ED Stress React, ED Hyperventilation Syndrome, ED Panic Attack Follow-Up: [facility] [Provider Group] Discharge Date/Time: 01/27/18 01:22
[2018-01-27 00:47] LABS: BILIRUBIN,URINE NEGATIVE (NEGATIVE); GLUCOSE, URINE (UA) NEGATIVE (NEGATIVE); KETONES,URINE (UA) NEGATIVE (NEGATIVE); LEUKOCYTE ESTERASE, URINE NEGATIVE (NEGATIVE); NITRITE,URINE NEGATIVE (NEGATIVE); OCCULT BLOOD,URINE NEGATIVE (NEGATIVE); PH,URINE 7.5 PH (5.0-7.5); PROTEIN,URINE NEGATIVE (NEGATIVE); UROBILINOGEN,URINE 0.2 (NORMAL) E.U./dL (NORMAL)
[2018-01-27 00:50] LABS: CLARITY,URINE CLEAR (CLEAR); HCG UR QUAL NEGATIVE
[2018-01-27 00:52] LABS: ALBUMIN 4.6 g/dL (3.2-5.5); ALBUMIN/GLOBULIN RATIO 1.4 (1.0-2.2); BILIRUBIN,TOTAL 0.4 mg/dL (0.2-1.0); CALCIUM 9.3 mg/dL (8.5-10.3); CREATININE 0.6 mg/dL (0.4-1.0); TOTAL PROTEIN 7.9 g/dL (6.7-8.2)
--- NOTE | 2018-01-27 01:06 | XRAY Preliminary Report ---
Exam: XR CHEST 2 VIEW X-RAY IMPRESSION: 1. No acute abnormality seen in the chest. [facility] SITE ID: [id number]
--- NOTE | 2018-01-27 01:06 | XRAY Report ---
EXAM: CHEST RADIOGRAPHY EXAM DATE: 01/27/2018 12:52 AM. CLINICAL HISTORY: L upper chest pain. COMPARISON: 02/11/2016. TECHNIQUE: 2 views. FINDINGS: Lungs/Pleura: No alveolar consolidation or pleural effusion seen. No pneumothorax. Mediastinum: Heart and mediastinal contours are unremarkable. Other: None. IMPRESSION: 1. No acute abnormality seen in the chest. [facility] Referring Provider Line: [phone] SITE ID: [id number]
[2018-01-27 01:22] VITALS: BP 110/65
== END 2018-01-27 01:22 | disposition home or self-care (01) ==
LOC: EDUNIT# → ED 23:11
DX: F41.9 Anxiety disorder, unspecified (principal); F45.8 Other somatoform disorders; F17.200 Nicotine dependence, unspecified, uncomplicated
CPT/HCPCS: 36415; 71046; 80053; 81001; 81003; 81025; 83690; 84484; 85025; 87086; 93005; 99283; 99284

== ENCOUNTER 2018-02-03 05:47 | Outpatient (CLI) | payer MEDICAID | END 2018-02-03 05:48 | disposition critical access hospital (66) | LOC: EMS 05:47 | PROVIDERS: ATTEND Surgery | DX: S09.93XA Unspecified injury of face, initial encounter (principal); S70.11XA Contusion of right thigh, initial encounter; S30.0XXA Contusion of lower back and pelvis, initial encounter; Y04.2XXA Assault by strike against or bumped into by another person, initial encounter | CPT/HCPCS: A0425; A0429 ==

== ENCOUNTER 2018-02-03 06:06 | Emergency (ER) | payer OTHER, MEDICAID ==
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
[2018-02-03] MEDS ORDERED: ACETAMINOPHEN 325 MG TABLET PO STA (07:21)
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
[2018-02-03 09:46] VITALS: BP 133/76
== END 2018-02-03 08:50 | disposition home or self-care (01) ==
LOC: EDUNIT# → ED 06:06
DX: S02.30XA Fracture of orbital floor, unspecified side, initial encounter for closed fracture (principal); Y04.0XXA Assault by unarmed brawl or fight, initial encounter; F17.200 Nicotine dependence, unspecified, uncomplicated
CPT/HCPCS: 70486; 99283; A9270

== ENCOUNTER 2018-02-10 16:09 | Outpatient (CLI) | payer MEDICAID | END 2018-02-10 16:10 | disposition home or self-care (01) | LOC: LAB.R 16:09 | PROVIDERS: ATTEND Obstetrics & Gynecology | DX: N76.0 Acute vaginitis (principal) | CPT/HCPCS: 87480; 87510; 87660 ==

== ENCOUNTER 2018-03-25 08:00 | Outpatient (CLI) | payer MEDICAID, OTHER | END 2018-03-25 08:01 | disposition home or self-care (01) | LOC: LAB.R 08:00 | PROVIDERS: ATTEND Obstetrics & Gynecology | DX: N76.0 Acute vaginitis (principal); R35.0 Frequency of micturition | CPT/HCPCS: 87070; 87086 ==

== ENCOUNTER 2018-05-02 11:30 | Outpatient (CLI) | payer MEDICAID, OTHER | END 2018-05-02 11:31 | disposition home or self-care (01) | LOC: LAB.R 11:30 | PROVIDERS: ATTEND Nurse Practitioner | DX: Z72.51 High risk heterosexual behavior (principal) | CPT/HCPCS: 87491; 87591 ==

== ENCOUNTER 2018-05-04 03:18 | Emergency (ER) | payer MEDICAID, OTHER ==
[2018-05-04 03:26] VITALS: BP 138/81
[2018-05-04] MEDS ORDERED: DEXAMETHASONE 10 MG/ML VIAL PO STA (03:27)
[2018-05-04] MEDS ORDERED: BENZONATATE 100 MG CAPSULE PO STA (03:27)
[2018-05-04] MEDS ORDERED: LIDOCAINE PATCH 5% TOP STA (03:27)
[2018-05-04] MEDS ORDERED: KETOROLAC 60 MG/2 ML VIAL IM STA (03:27)
--- NOTE | 2018-05-04 03:44 | ED Physician Documentation ---
PD HPI DYSPNEA - Stated complaint Stated Complaint: DIFF BREATHING - Chief complaint Chief Complaint: Resp - History obtained from History obtained from: Patient - History of Present Illness Timing - onset: How many weeks ago (1) Timing - details: Gradual onset Associated symptoms: Cough, Chest pain / discomfort. No: Hemoptysis Similar symptoms before: No diagnosis, Work up / diagnostics Recently seen: Clinic - Additional information Additional information: Patient is a 23 year old female who is presenting to the emergency department with right sided chest pain. patient reports that she has had a cough for about the last week. Patient saw her pmd who diagnosed her with a viral syndrome. patient states that she has had worsening right sided chest pain so she came to the emergency department for evaluation. patient denies hemoptysis , exogenous estrogen, history of blood clots or leg swelling. Review of Systems Ten Systems: 10 systems reviewed and negative Constitutional: denies: Fever, Chills Cardiac: reports: Chest pain / pressure. denies: Pedal edema Respiratory: reports: Cough. denies: Hemoptysis, Wheezing PD PAST MEDICAL HISTORY - Past Medical History Cardiovascular: None Respiratory: None Endocrine/Autoimmune: None GI: None : None HEENT: None Psych: Anxiety Musculoskeletal: None Derm: None - Past Surgical History Past Surgical History: No - Present Medications Home Medications: Ambulatory Orders Medication Instructions Recorded Confirmed Benzonatate [Tessalon Perle] 100 mg PO TID #14 capsule 05/04/18 Codeine Phosphate/Guaifenesin 5 ml PO DAILY PRN #100 ml 05/04/18 [Guaifen-Codeine 100-10 mg/5 ml] Lidocaine Patch 5% [Lidoderm Patch] 1 each TOP DAILY #14 patch 05/04/18 predniSONE [Prednisone] 40 mg PO DAILY 5 Days tablet 05/04/18 - Allergies Allergies/Adverse Reactions: Allergies Allergy/AdvReac Type Severity Reaction Status Date / Time No Known Drug Allergies Allergy Verified 05/04/18 03:26 - Social History Does the pt smoke?: Yes Smoking Status: Current every day smoker Does the pt drink ETOH?: No Does the pt have substance abuse?: No - Immunizations Immunizations are current?: Yes - POLST Patient has POLST: No PD ED PE NORMAL - Vitals Vital signs reviewed: Yes - General General: Alert and oriented X 3 - HEENT HEENT: Atraumatic - Neck Neck: No JVD - Cardiac Cardiac: RRR, No murmur - Respiratory Respiratory: No respiratory distress, Clear bilaterally - Abdomen Abdomen: Soft - Derm Derm: Normal color, No rash - Extremities Extremities: No deformity - Neuro Neuro: Alert and oriented X 3 Eye Opening: Spontaneous Motor: Obeys Commands Verbal: Oriented GCS Score: 15 PD ED PE EXPANDED - Cardiac Cardiac: Chest wall TTP (tenderness to palpation of right chest wall, no rash, no gross deformity) Results - Vitals Vitals: Vital Signs - 24 hr 05/04/18 05/04/18 03:23 04:10 Temperature 36.4 C L Heart Rate 88 77 Respiratory 18 18 Rate Blood Pressure 138/81 H O2 Saturation 100 99 Oxygen O2 Source Room air - Rads (name of study) chest x-ray Radiology: Final report received, EMP read contemporaneously (normal) PD MEDICAL DECISION MAKING - ED course Complexity details: reviewed old records, reviewed results, re-evaluated patient , considered differential, d/w patient ED course: Patient was seen and examined at bedside. patient was treated with toradol, lidoderm and decadron. patient was sent for imaging. when patient returned the results were reviewed. there was no acute infiltrate or abnormality. Patient required no further work up and was stable for discharge with outpatient follow up. - Sepsis Event Vital Signs: Vital Signs - 24 hr 05/04/18 05/04/18 03:23 04:10 Temperature 36.4 C L Heart Rate 88 77 Respiratory 18 18 Rate Blood Pressure 138/81 H O2 Saturation 100 99 Oxygen O2 Source Room air Departure - Departure Disposition: 01 Home, Self Care Clinical Impression: Rib pain on right side Condition: Good Instructions: ED Strain Chest Wall Follow-Up: primary,care provider [Other] - Within 1 week Prescriptions: Benzonatate [Tessalon Perle] 100 mg PO TID #14 capsule Codeine Phosphate/Guaifenesin [Guaifen-Codeine 100-10 mg/5 ml] 5 ml PO DAILY PRN #100 ml PRN Reason: Cough Lidocaine Patch 5% [Lidoderm Patch] 1 each TOP DAILY #14 patch predniSONE [Prednisone] 40 mg PO DAILY 5 Days tablet Comments: Your diagnostics today were within normal limits. Your symptoms are likely secondary to a strain of your chest wall. You can take motrin or tylenol and you can also use the lidoderm patch. You have been prescribed prednisone, tessalon and guaifenasin with codeine. If you use the cough medicine with codeine you cannot drive, operate heavy machinery or be responsible for your child while using it. You should follow up with your doctor if symptoms persist. You may return to the emergency department at any time for new, worsening or uncontrollable symptoms. Forms: Activity restrictions
--- NOTE | 2018-05-04 04:23 | XRAY Report ---
Procedure Date: 05/04/2018 Accession Number: [id number] / [id number] Procedure: XR - Chest 2 View X-Ray CPT Code: 60533 FULL RESULT: EXAM: CHEST RADIOGRAPHY EXAM DATE: 05/04/2018 03:54 AM. CLINICAL HISTORY: Right sided chest pain. COMPARISON: 01/27/2018. TECHNIQUE: 2 views. FINDINGS: Lungs/Pleura: No alveolar consolidation or pleural effusion seen. No pneumothorax. Mediastinum: Heart and mediastinal contours are unremarkable. Other: None. IMPRESSION: 1. No acute abnormality seen in the chest. RADIA
== END 2018-05-04 04:11 | disposition home or self-care (01) ==
LOC: ED 03:18
DX: F17.200 Nicotine dependence, unspecified, uncomplicated (principal); R07.81 Pleurodynia
CPT/HCPCS: 71046; 96372; 99283; A9270

== ENCOUNTER 2018-06-11 14:50 | Emergency (ER) | payer MEDICAID ==
[2018-06-11 15:15] LABS: BILIRUBIN,URINE NEGATIVE (NEGATIVE); GLUCOSE, URINE (UA) NEGATIVE (NEGATIVE); KETONES,URINE (UA) NEGATIVE (NEGATIVE); LEUKOCYTE ESTERASE, URINE TRACE (NEGATIVE); NITRITE,URINE NEGATIVE (NEGATIVE); OCCULT BLOOD,URINE NEGATIVE (NEGATIVE); PROTEIN,URINE NEGATIVE (NEGATIVE); UROBILINOGEN,URINE 0.2 (NORMAL) E.U./dL (NORMAL)
[2018-06-11 15:25] LABS: CLARITY,URINE CLEAR (CLEAR); HCG UR QUAL NEGATIVE
[2018-06-11 15:56] LABS: BACTERIA,URINE Few /HPF (None Seen); RBC,URINE 0-5 /HPF (0-5); SQUAMOUS EPITHELIAL CELL,UR MANY Squamous (<= Few)
--- NOTE | 2018-06-11 15:56 | ED Physician Documentation ---
PD HPI BACK PAIN - Stated complaint Stated Complaint: NAUSEA,L SIDE PX, BACK PX,LIGHTHEADED - Chief complaint Chief Complaint: General - History obtained from History obtained from: Patient - History of Present Illness Timing - onset: How many hours ago (few), Today Timing - duration: Hours Timing - details: Abrupt onset (onset today of left lower back pain, worse with moving. No noted trauma. Was doing light lifting at the time. Feels pain goes into lower abd.), Still present Location: Mid, Lower, Left Quality: Pain, Aching Associated symptoms: Other (nausea). No: Fever, Weakness, Numbness Review of Systems Constitutional: denies: Fever, Chills, Myalgias Nose: denies: Rhinorrhea / runny nose, Congestion Throat: denies: Sore throat Cardiac: denies: Chest pain / pressure, Palpitations Respiratory: denies: Dyspnea, Cough GI: reports: Nausea. denies: Vomiting, Constipation, Diarrhea : reports: Discharge (for the past week or so, similar to symptoms of BV she has had a couple times in the past.). denies: Dysuria, Frequency Skin: denies: Rash, Lesions Musculoskeletal: reports: Back pain. denies: Neck pain Neurologic: reports: Headache (intermittent the past few months since facial injury with fracture. Had migraines at times prior. Has had current headache for 3 days. Not taking any migrained meds.). denies: Focal weakness, Numbness Immunocompromised: denies: Immunocompromised PD PAST MEDICAL HISTORY - Past Medical History Cardiovascular: None Respiratory: None Endocrine/Autoimmune: None GI: None : None HEENT: None Psych: Anxiety Musculoskeletal: None Derm: None - Past Surgical History Past Surgical History: No - Present Medications Home Medications: Ambulatory Orders Medication Instructions Recorded Confirmed Benzonatate [Tessalon Perle] 100 mg PO TID #14 capsule 05/04/18 Codeine Phosphate/Guaifenesin 5 ml PO DAILY PRN #100 ml 05/04/18 [Guaifen-Codeine 100-10 mg/5 ml] Lidocaine Patch 5% [Lidoderm Patch] 1 each TOP DAILY #14 patch 05/04/18 predniSONE [Prednisone] 40 mg PO DAILY 5 Days tablet 05/04/18 Amitriptyline [Elavil] 25 mg PO HS #30 tablet 06/11/18 Dexamethasone [Decadron] 4 mg PO DAILY #5 tablet 06/11/18 Metronidazole [Flagyl] 500 mg PO BID #14 tablet 06/11/18 Ondansetron HCl [Zofran] 4 mg PO Q6H PRN #20 tablet 06/11/18 Tramadol HCl 50 mg PO Q6H PRN #20 tablet 06/11/18 - Allergies Allergies/Adverse Reactions: Allergies Allergy/AdvReac Type Severity Reaction Status Date / Time No Known Drug Allergies Allergy Verified 06/11/18 15:01 - Social History Does the pt smoke?: Yes Smoking Status: Current every day smoker Does the pt drink ETOH?: No Does the pt have substance abuse?: No - Immunizations Immunizations are current?: Yes - POLST Patient has POLST: No PD ED PE NORMAL - Vitals Vital signs reviewed: Yes - General General: Alert and oriented X 3, No acute distress, Well developed/nourished - HEENT HEENT: Atraumatic, PERRL (some light sensntive), EOMI (fundus normal), Ears normal, Pharynx benign - Neck Neck: Supple, no meningeal sign, No adenopathy - Cardiac Cardiac: RRR, No murmur - Respiratory Respiratory: Clear bilaterally - Abdomen Abdomen: Soft, Non tender - Rectal Rectal: Deferred - Back Back: No spinal TTP, Other (tender in left upper lumbar area to palpation not percussion. ) - Derm Derm: Normal color, Warm and dry - Extremities Extremities: No tenderness to palpate, Normal ROM s pain - Neuro Neuro: Alert and oriented X 3, closing machine operator 2-12 intact, No motor deficit, No sensory deficit, Normal speech Eye Opening: Spontaneous Motor: Obeys Commands Verbal: Oriented GCS Score: 15 Results - Vitals Vitals: Vital Signs - 24 hr 06/11/18 06/11/18 14:56 17:50 Temperature 36 C L Heart Rate 86 82 Respiratory 16 16 Rate Blood Pressure 123/74 122/78 O2 Saturation 95 98 Oxygen O2 Source Room air - Labs Labs: Laboratory Tests 06/11/18 15:10 Urine Color YELLOW Urine Clarity CLEAR Urine pH 6.0 Ur Specific [place] <=1.005 Urine Protein NEGATIVE Urine Glucose (UA) NEGATIVE Urine Ketones NEGATIVE Urine Occult Blood NEGATIVE Urine Nitrite NEGATIVE Urine Bilirubin NEGATIVE Urine Urobilinogen 0.2 (NORMAL) Ur Leukocyte Esterase TRACE H Urine RBC 0-5 Urine WBC 0-3 Ur Squamous Epith Cells MANY Squamous H Urine Bacteria Few Ur Microscopic Review INDICATED Urine Culture Comments NOT INDICATED Urine HCG, Qual NEGATIVE PD MEDICAL DECISION MAKING - ED course Complexity details: considered differential (muscular back pain though consider kidney stone with abrupt onset without injury per se. describes vag d/c similar to BV in the past, and we shared decision for empiric treatment and not do pelvic. headaches sound migraine and she is not on any meds for them. ), d/w patient - Sepsis Event Vital Signs: Vital Signs - 24 hr 06/11/18 06/11/18 14:56 17:50 Temperature 36 C L Heart Rate 86 82 Respiratory 16 16 Rate Blood Pressure 123/74 122/78 O2 Saturation 95 98 Oxygen O2 Source Room air Departure - Departure Disposition: 01 Home, Self Care Clinical Impression: Recurrent headache, Vaginal discharge Low back pain Qualifiers: Chronicity: acute Back pain laterality: left Sciatica presence: without sciatica Qualified Code(s): M54.5 - Low back pain Condition: Stable Record reviewed to determine appropriate education?: Yes Instructions: ED Flank Pain Uncertain Cause Prescriptions: Amitriptyline [Elavil] 25 mg PO HS #30 tablet Dexamethasone [Decadron] 4 mg PO DAILY #5 tablet Metronidazole [Flagyl] 500 mg PO BID #14 tablet Ondansetron HCl [Zofran] 4 mg PO Q6H PRN #20 tablet PRN Reason: Nausea / Vomiting Tramadol HCl 50 mg PO Q6H PRN #20 tablet PRN Reason: Pain Comments: Your urine test and kidney ultrasound appear normal. No signs of kidney stone or urinary tract infection. Your back pain may be muscular and so take anti- inflammatory such as naproxen or ibuprofen and add Tylenol or tramadol if needed for pains. He did mention a vaginal discharge and a recurrent bacterial vaginosis could give you these back pain as well so take the Flagyl twice daily for a week. Regarding your headache, use Decadron daily for the next 5 days to try to reduce that. It sounds likely migraine though could be some residual pain from the prior fracture. We will treated as a likely recurrent migraine and the Decadron should help. Also start Elavil nightly to reduce reduce recurrences. Follow-up with your primary care in the next week or so, call for an appointment. Forms: Activity restrictions Discharge Date/Time: 06/11/18 17:55
[2018-06-11] MEDS ORDERED: DEXAMETHASONE 10 MG/ML VIAL PO STA (16:19)
[2018-06-11] MEDS ORDERED: traMADol 50 MG TABLET PO STA (16:19)
[2018-06-11] MEDS ORDERED: NAPROXEN 250 MG TABLET PO STA (16:19)
--- NOTE | 2018-06-11 17:19 | Ultrasound Report ---
Procedure Date: 06/11/2018 Accession Number: [id number] / [id number] Procedure: US - Retroperitoneal Limited CPT Code: FULL RESULT: EXAM: LIMITED RENAL ULTRASOUND EXAM DATE: 06/11/2018 05:08 PM. CLINICAL HISTORY: Left flank pain; question of hydronephrosis/assess kidney. COMPARISON: None. TECHNIQUE: Real-time scanning was performed with static images obtained. FINDINGS: Right Kidney: Not evaluated. Left Kidney: 10.9 x 4.9 x 4.6 cm. Normal echotexture with no stones, contour-deforming masses, or hydronephrosis. Bladder: Not evaluated. Other: None. IMPRESSION: 1. No left renal mass, stone or hydronephrosis. 2. Bladder and right kidney not evaluated. RADIA
[2018-06-11 17:50] VITALS: BP 122/78
== END 2018-06-11 17:55 | disposition home or self-care (01) ==
LOC: ED 14:50
DX: M54.5 Low back pain (principal); R51 Headache; N89.8 Other specified noninflammatory disorders of vagina; F17.200 Nicotine dependence, unspecified, uncomplicated
CPT/HCPCS: 76775; 81001; 81025; 99283; A9270; 81003; 87086

== ENCOUNTER 2018-07-15 08:00 | Outpatient (CLI) | payer MEDICAID | END 2018-07-15 08:01 | disposition home or self-care (01) | LOC: LAB.R 08:00 | PROVIDERS: ATTEND Obstetrics & Gynecology | DX: N76.0 Acute vaginitis (principal) | CPT/HCPCS: 87480; 87510; 87660 ==

== ENCOUNTER 2018-07-31 12:32 | Outpatient (CLI) | payer MEDICAID | END 2018-07-31 12:33 | disposition home or self-care (01) | LOC: LAB 12:32 | PROVIDERS: ATTEND Obstetrics & Gynecology | DX: Z13.9 Encounter for screening, unspecified (principal) | CPT/HCPCS: 36415; 84702 ==

== ENCOUNTER 2018-07-31 18:55 | Emergency (ER) | payer MEDICAID ==
[2018-07-31 20:57] LABS: BILIRUBIN,URINE NEGATIVE (NEGATIVE); GLUCOSE, URINE (UA) NEGATIVE (NEGATIVE); KETONES,URINE (UA) NEGATIVE (NEGATIVE); LEUKOCYTE ESTERASE, URINE NEGATIVE (NEGATIVE); NITRITE,URINE NEGATIVE (NEGATIVE); OCCULT BLOOD,URINE MODERATE (NEGATIVE); PROTEIN,URINE NEGATIVE (NEGATIVE); UROBILINOGEN,URINE 0.2 (NORMAL) E.U./dL (NORMAL)
[2018-07-31 21:02] LABS: CLARITY,URINE CLEAR (CLEAR); HCG UR QUAL NEGATIVE
[2018-07-31 21:05] LABS: BACTERIA,URINE None Seen /HPF (None Seen); SQUAMOUS EPITHELIAL CELL,UR FEW Squamous (<= Few)
--- NOTE | 2018-07-31 21:31 | ED Physician Documentation ---
History of Present Illness - Stated complaint Stated Complaint: FEMALE - Chief complaint Chief Complaint: General - History obtained from History obtained from: Patient - History of Present Illness Timing: Other (This is a 23-year-old woman with left pelvic pain for the last 4 days. She is a cramping pain that radiates to the back. Associate with nausea and hot sweats and flashes. Review of the records shows a similar presentation at the end of May with negative workup. She was treated at that time with medications including amitriptyline and Flagyl which did help. She was seen again more recently and diagnosed with both yeast and Gardnerella and it sounds like she was treated for that although she does not remember specifically what medication she was on. For the last 4 days she has had the symptoms, she saw Dr. Hu today who reportedly did a pelvic exam and there was no tenderness. A test was negative. She is frustrated and would like more diagnostics.) Review of Systems Constitutional: reports: Sweats. denies: Fever, Chills GI: reports: Nausea. denies: Vomiting, Constipation, Diarrhea : denies: Dysuria, Frequency PD PAST MEDICAL HISTORY - Past Medical History Cardiovascular: None Respiratory: None Endocrine/Autoimmune: None GI: None : None HEENT: None Psych: Anxiety Musculoskeletal: None Derm: None - Past Surgical History Past Surgical History: No - Present Medications Home Medications: Ambulatory Orders Medication Instructions Recorded Confirmed Norelgestromin/Ethin.estradiol 1 each TD ONCE #3 patch.tdwk 07/31/18 [Xulane Patch] - Allergies Allergies/Adverse Reactions: Allergies Allergy/AdvReac Type Severity Reaction Status Date / Time No Known Drug Allergies Allergy Verified 07/31/18 19:20 - Social History Does the pt smoke?: Yes Smoking Status: Current every day smoker Does the pt drink ETOH?: No Does the pt have substance abuse?: No - Immunizations Immunizations are current?: Yes - POLST Patient has POLST: No PD ED PE NORMAL - Vitals Vital signs reviewed: Yes - General General: Alert and oriented X 3, No acute distress - Respiratory Respiratory: No respiratory distress, Clear bilaterally - Abdomen Abdomen: Normal bowel sounds, Soft, Non tender - Back Back: No CVA TTP, No spinal TTP - Extremities Extremities: No edema, No calf tenderness / cord - Neuro Neuro: Alert and oriented X 3, Normal speech Results - Vitals Vitals: Vital Signs - 24 hr 07/31/18 19:15 Temperature 36.5 C Heart Rate 90 Respiratory 16 Rate Blood Pressure 123/72 O2 Saturation 99 Oxygen O2 Source Room air - Labs Labs: Laboratory Tests 07/31/18 07/31/18 07/31/18 19:20 21:36 21:36 WBC 5.6 RBC 4.59 Hgb 14.4 Hct 41.0 MCV 89.4 MCH 31.4 H MCHC 35.2 RDW 12.6 Plt Count 200 MPV 7.6 L Neut # (Auto) 3.1 Lymph # (Auto) 2.0 [place] # (Auto) 0.5 Eos # (Auto) 0.0 Baso # (Auto) 0.0 Absolute Nucleated RBC 0.00 Nucleated RBC % 0.1 Sodium 138 Potassium 3.5 Chloride 103 Carbon Dioxide 27 Anion Gap 8.0 BUN 10 Creatinine 0.6 Estimated GFR (MDRD) 125 Glucose 103 H Calcium 8.9 Total Bilirubin 0.5 AST 25 ALT 23 Alkaline Phosphatase 90 Total Protein 7.4 Albumin 4.6 Globulin 2.8 Albumin/Globulin Ratio 1.6 Lipase 27 Urine Color YELLOW Urine Clarity CLEAR Urine pH 7.0 Ur Specific [place] <=1.005 Urine Protein NEGATIVE Urine Glucose (UA) NEGATIVE Urine Ketones NEGATIVE Urine Occult Blood MODERATE H Urine Nitrite NEGATIVE Urine Bilirubin NEGATIVE Urine Urobilinogen 0.2 (NORMAL) Ur Leukocyte Esterase NEGATIVE Urine RBC 6-10 H Urine WBC 0-3 Ur Squamous Epith Cells FEW Squamous Urine Bacteria None Seen Ur Microscopic Review INDICATED Urine Culture Comments NOT INDICATED Urine HCG, Qual NEGATIVE PD MEDICAL DECISION MAKING - ED course ED course: 23-year-old woman with vague complaints of left pelvic pain and discharge. Reportedly saw LIP CUTTER AND SCORER today without specific diagnosis and she would like more of a workup. She has a benign exam. Her urinalysis is normal and a repeat test was also negative. Ultrasound and blood work with or without abnormal findings. She does also have some symptoms of night sweats and nausea. Perhaps a hormonal issue test may be trialing control to see if that would help her symptoms and she is amenable. - Sepsis Event Vital Signs: Vital Signs - 24 hr 07/31/18 19:15 Temperature 36.5 C Heart Rate 90 Respiratory 16 Rate Blood Pressure 123/72 O2 Saturation 99 Oxygen O2 Source Room air Departure - Departure Disposition: 01 Home, Self Care Clinical Impression: Vaginal discharge, Lower abdominal pain Condition: Good Record reviewed to determine appropriate education?: Yes Instructions: ED Pelvic Pain [facility] Follow-Up: [facility] [Provider Group] Prescriptions: Norelgestromin/Ethin.estradiol [Xulane Patch] 1 each TD ONCE #3 patch.tdwk
[2018-07-31 21:42] LABS: BASOPHILS % (AUTO) 0.3 %; EOSINOPHILS % (AUTO) 0.4 %; HGB - HEMOGLOBIN 14.4 g/dL (12.0-16.0); LYMPHOCYTES % (AUTO) 35.7 %; MEAN CORPUSCULAR HEMOGLOBIN 31.4 pg (27.0-31.0); MEAN CORPUSCULAR HGB CONC 35.2 g/dL (32.0-36.0); MEAN CORPUSCULAR VOLUME 89.4 fL (81.0-99.0); MEAN PLATELET VOLUME 7.6 fL (7.9-10.8); MONOCYTES # (AUTO) 0.5 10^3/uL (0.0-1.0); MONOCYTES % (AUTO) 8.8 %; NEUTROPHILS # (AUTO) 3.1 10^3/uL (1.5-6.6); NEUTROPHILS % (AUTO) 54.8 %; PLT - PLATELET COUNT 200 10^3/uL (130-450); RED BLOOD COUNT 4.59 10^6/uL (4.20-5.40); RED CELL DISTRIBUTION WIDTH 12.6 % (12.0-15.0); WHITE BLOOD COUNT 5.6 x10^3/uL (4.8-10.8)
[2018-07-31 21:59] LABS: ALBUMIN 4.6 g/dL (3.2-5.5); ALBUMIN/GLOBULIN RATIO 1.6 (1.0-2.2); BILIRUBIN,TOTAL 0.5 mg/dL (0.2-1.0); CALCIUM 8.9 mg/dL (8.5-10.3); CREATININE 0.6 mg/dL (0.4-1.0); TOTAL PROTEIN 7.4 g/dL (6.7-8.2)
--- NOTE | 2018-07-31 22:50 | Ultrasound Report ---
Reason: pelvic pain, L Procedure Date: 07/31/2018 Accession Number: [id number] / [id number] Procedure: US - Pelvic w/Transvag+Doppler Comp CPT Code: FULL RESULT: EXAM: PELVIC ULTRASOUND EXAM DATE: 07/31/2018 10:15 PM. CLINICAL HISTORY: Left pelvic pain. COMPARISON: None. TECHNIQUE: Realtime transabdominal pelvic scan performed to identify the uterus and adnexa and as an overview of other pelvic structures, followed by transvaginal scan to provide greater detail of the uterus and adnexa, with static image documentation. FINDINGS: Uterus: 7.9 x 3.0 x 5.2 cm, volume 64 cc. Anteverted position. Normal overall size and echotexture. Masses: None. Endometrium: 3.5 mm. Trace fluid in the endometrial cavity. Cervix: Unremarkable. Right Ovary: 2.7 x 2.3 x 2.8 cm, volume 8.8 cc. Normal echotexture and blood flow. Left Ovary: 2.6 x 1.5 x 1.4 cm, volume 3.0 cc. Normal echotexture and blood flow. Free Fluid: None. Other: None. IMPRESSION: 1. Uterus and ovaries appear normal. 2. No free fluid seen. RADIA
[2018-07-31 22:52] VITALS: BP 120/70
== END 2018-07-31 22:51 | disposition home or self-care (01) ==
LOC: ED 18:55
DX: N89.8 Other specified noninflammatory disorders of vagina (principal); R10.30 Lower abdominal pain, unspecified; F17.200 Nicotine dependence, unspecified, uncomplicated
CPT/HCPCS: 36415; 76830; 76856; 80053; 81001; 81003; 81025; 83690; 84702; 85025; 87086; 93975; 99283

== ENCOUNTER 2018-10-01 15:27 | Outpatient (CLI) | payer MEDICAID | END 2018-10-01 23:59 | disposition home or self-care (01) | LOC: LAB.R 15:27 | PROVIDERS: ATTEND Nurse Practitioner Obstetrics & Gynecology | DX: N89.8 Other specified noninflammatory disorders of vagina (principal) | CPT/HCPCS: 87480; 87510; 87660 ==

== ENCOUNTER 2018-10-15 08:00 | Outpatient (CLI) | payer MEDICAID | END 2018-10-15 08:01 | disposition home or self-care (01) | LOC: LAB.R 08:00 | PROVIDERS: ATTEND Registered Nurse | DX: B37.3 Candidiasis of vulva and vagina (principal) | CPT/HCPCS: 87491; 87591 ==

== ENCOUNTER 2018-11-02 13:10 | Outpatient (CLI) | payer MEDICAID ==
--- NOTE | 2018-11-03 10:40 | Ultrasound Report ---
Reason: TEST POSITIVE Procedure Date: 11/02/2018 Accession Number: [id number] / [id number] Procedure: US - OB First Trimester CPT Code: FULL RESULT: EXAM: FIRST TRIMESTER OBSTETRIC ULTRASOUND (Less than 11 weeks) EXAM DATE: 11/02/2018 02:00 PM. CLINICAL HISTORY: TEST POSITIVE. LMP: 09/19/2018. COMPARISONS: PEL NON OB W/TV DOP 07/31/2018 9:52 PM. TECHNIQUE: Transabdominal and transvaginal ultrasound examination with static image documentation. CLINICAL DATES: EGA 6 weeks 2 days with CHAKA 06/26/2019 based on LMP/prior ultrasound/other. ASSESSMENT: Gestational Sac: Single intrauterine. Normal shape. Mean gestational sac diameter: 23.6 mm = 7 weeks 0 days. Embryo: CRL (crown-rump length) 4.9 mm = 6 weeks 2 days (CHAKA 06/26/2019). Cardiac activity: 126 beats per minute. Yolk sac: 2.6 mm. Amniotic fluid: Not accurately assessed at this gestational age. Early placenta: Not visible at this gestational age. Other: No perigestational fluid collection demonstrated. MATERNAL STRUCTURES: Uterus: Anteverted. Unremarkable. Cervix: Closed. Right Ovary/Adnexa: The ovary measures 3.4 x 1.7 x 3.0 cm, volume 9.1 cc. Probable 2.8 cm corpus luteum. Left Ovary/Adnexa: The ovary measures 1.9 x 1.3 x 1.1 cm, volume 1.4 cc. Unremarkable. Free Fluid: Nonspecific trace free pelvic fluid, may be physiologic. Other: None. IMPRESSION: 1. Single viable intrauterine at EGA 6 weeks 2 days with CHAKA 06/26/2019 based on crown-rump length, which is concordant with clinical dates. 2. Assigned dating is CHAKA 06/26/2019 based on LMP. BRONSON
== END 2018-11-02 13:11 | disposition home or self-care (01) ==
LOC: DI 13:10
PROVIDERS: ATTEND Registered Nurse
DX: Z32.01 Encounter for pregnancy test, result positive (principal)
CPT/HCPCS: 76801; 76817

== ENCOUNTER 2018-12-05 11:50 | Outpatient (CLI) | payer MEDICAID | END 2018-12-05 23:59 | disposition home or self-care (01) | LOC: LAB.R 11:50 | PROVIDERS: ATTEND Registered Nurse | DX: Z32.01 Encounter for pregnancy test, result positive (principal) | CPT/HCPCS: 87491; 87591 ==

== ENCOUNTER 2018-12-19 08:00 | Outpatient (CLI) | payer MEDICAID | END 2018-12-19 23:59 | disposition home or self-care (01) | LOC: LAB.R 08:00 | PROVIDERS: ATTEND Nurse Practitioner Obstetrics & Gynecology | DX: N89.8 Other specified noninflammatory disorders of vagina (principal) | CPT/HCPCS: 87480; 87510; 87660 ==

== ENCOUNTER 2018-12-19 15:33 | Outpatient (CLI) | payer MEDICAID ==
[2018-12-19 16:10] LABS: BASOPHILS % (AUTO) 0.4 %; EOSINOPHILS # (AUTO) 0.1 10^3/uL (0.0-0.7); EOSINOPHILS % (AUTO) 1.9 %; HGB - HEMOGLOBIN 12.8 g/dL (12.0-16.0); LYMPHOCYTES # (AUTO) 1.6 10^3/uL (1.5-3.5); LYMPHOCYTES % (AUTO) 21.7 %; MEAN CORPUSCULAR HEMOGLOBIN 32.1 pg (27.0-31.0); MEAN CORPUSCULAR HGB CONC 35.4 g/dL (32.0-36.0); MEAN CORPUSCULAR VOLUME 90.8 fL (81.0-99.0); MEAN PLATELET VOLUME 7.6 fL (7.9-10.8); MONOCYTES # (AUTO) 0.5 10^3/uL (0.0-1.0); MONOCYTES % (AUTO) 6.9 %; NEUTROPHILS # (AUTO) 5.2 10^3/uL (1.5-6.6); NEUTROPHILS % (AUTO) 69.1 %; PLT - PLATELET COUNT 190 10^3/uL (130-450); RED BLOOD COUNT 3.98 10^6/uL (4.20-5.40); RED CELL DISTRIBUTION WIDTH 12.7 % (12.0-15.0); WHITE BLOOD COUNT 7.6 x10^3/uL (4.8-10.8)
[2018-12-19 16:22] LABS: CREATININE 0.5 mg/dL (0.4-1.0); URIC ACID 2.5 mg/dL (2.6-7.2)
[2018-12-20 13:11] LABS: HEPATITIS B SURFACE ANTIGEN NON-REACTIVE (NON-REACTIVE); HEPATITIS C ANTIBODY NON-REACTIVE (NON-REACTIVE)
[2018-12-20 14:57] LABS: HIV AG/AB 4TH GEN NON-REACTIVE (NON-REACTIVE)
== END 2018-12-19 15:34 | disposition home or self-care (01) ==
LOC: LAB 15:33
PROVIDERS: ATTEND Registered Nurse
DX: O09.299 Supervision of pregnancy with other poor reproductive or obstetric history, unspecified trimester (principal); N89.8 Other specified noninflammatory disorders of vagina
CPT/HCPCS: 36415; 80306; 81001; 81003; 81599; 82565; 83615; 84156; 84450; 84550; 85025; 86592; 86762; 86803; 86850; 86900; 86901; 87086; 87340; 87389; 87480; 87510; 87660

== ENCOUNTER → 2018-12-21 | Outpatient (CLI) | payer MEDICAID ==
[2018-12-29 14:48] LABS: TOTAL VOLUME 24HRS,URINE 1300 mL
[2018-12-29 14:49] LABS: CLARITY,URINE CLEAR (CLEAR); LEUKOCYTE ESTERASE, URINE NEGATIVE (NEGATIVE); MUDS CUTOFF CONCENTRATIONS CUTOFF CONC BELOW:; NITRITE,URINE NEGATIVE (NEGATIVE); OCCULT BLOOD,URINE NEGATIVE (NEGATIVE); PROTEIN,URINE NEGATIVE (NEGATIVE); TOTAL PROTEIN,URINE TIMED < 6 mg/dL; UROBILINOGEN,URINE 0.2 (NORMAL) E.U./dL (NORMAL)
[2018-12-29 14:53] LABS: AMPHETAMINE SCREEN,URINE NEGATIVE (NEGATIVE); BENZODIAZEPINES SCREEN, URINE NEGATIVE (NEGATIVE); BILIRUBIN,URINE NEGATIVE (NEGATIVE); COCAINE SCREEN URINE NEGATIVE (NEGATIVE); GLUCOSE, URINE (UA) NEGATIVE (NEGATIVE); KETONES,URINE (UA) NEGATIVE (NEGATIVE); METHADONE SCREEN, URINE NEGATIVE (NEGATIVE); METHAMPHETAMINES SCREEN, URINE NEGATIVE (NEGATIVE); OPIATE SCREEN, URINE NEGATIVE (NEGATIVE); OXYCODONE SCREEN, URINE NEGATIVE (NEGATIVE); PROPOXYPHENE SCREEN, URINE NEGATIVE (NEGATIVE); TRICYCLIC ANTIDEPRESSANT,URINE NEGATIVE (NEGATIVE)
== END ==
LOC: LAB.R 08:00
PROVIDERS: ATTEND Registered Nurse
DX: Z33.1 Pregnant state, incidental (principal); O09.299 Supervision of pregnancy with other poor reproductive or obstetric history, unspecified trimester
CPT/HCPCS: 80306; 81001; 81003; 84156; 87086

== ENCOUNTER 2019-01-29 13:30 | Outpatient (CLI) | payer MEDICAID ==
--- NOTE | 2019-01-30 09:26 | Ultrasound Report ---
Reason: ENCOUNTER FOR OTHER SPECIFIED SCREENING Procedure Date: 01/29/2019 Accession Number: [id number] / [id number] Procedure: US - OB Detailed Eval CPT Code: FULL RESULT: EXAM: COMPLETE OBSTETRICAL ULTRASOUND EXAM DATE: 01/29/2019 02:47 PM. CLINICAL HISTORY: anatomic survey. COMPARISON: OB FIRST TRIMESTER 11/02/2018 1:22 PM. TECHNIQUE: Real-time sonographic evaluation of the fetus performed by the cloth shearing supervisor. Multiple commercial pest control representative static images were saved for review. DATING: Established EGA 18 weeks 6 days with CHAKA 06/26/2019 based on LMP/physician stated. EGA 18 weeks 6 days with CHAKA 06/26/2019 based on prior ultrasound performed 11/02/2018. EGA 18 weeks 5 days with CHAKA 06/27/2019 based on the current ultrasound. GENERAL EVALUATION Aguilar . Cardiac activity: 52 bpm. movement: Visualized. Presentation: Cephalic. Placenta: Anterior position. No evidence for previa. Umbilical cord: 3 vessel cord. Central placental cord origin. Amniotic fluid: Subjectively normal; DK 12.8 cm. MVP 4.7 cm. BIOMETRY Bi-Parietal Diameter (BPD): 4.2 cm, 18 weeks 5 days Head Circumference (HC): 15.5 cm, 18 weeks 3 days Abdominal Circumference (AC): 12.9 cm, 18 weeks 3 days Femur Length (FL): 2.9 cm, 19 weeks 0 days Estimated Weight: 251 g, 34 percentile for 18 weeks 6 days. ANATOMY The intracranial structures, profile, face/nose/lips, spine, 4 chamber heart and outflow tracts, stomach, abdominal wall and cord insertion, diaphragm, kidneys, bladder, and extremities were visualized and demonstrate no abnormality. MATERNAL STRUCTURES Uterus: Unremarkable. Cervix: Long and closed. Transabdominal length 4.1 cm. Right ovary/adnexa: Unremarkable. Left ovary/adnexa: Unremarkable. Free fluid: None. IMPRESSION: 1. Aguilar live intrauterine with gestational age 18 weeks 6 days based on LMP/physician stated. 2. Estimated weight is within expected limits for assigned dating. 3. Normal anatomic survey. No anatomic abnormalities are detected at this time. RADIA
== END 2019-01-29 13:31 | disposition home or self-care (01) ==
LOC: DI 13:30
PROVIDERS: ATTEND Nurse Practitioner Obstetrics & Gynecology
DX: Z36.89 Encounter for other specified antenatal screening (principal); Z3A.18 18 weeks gestation of pregnancy
CPT/HCPCS: 76811

== ENCOUNTER 2019-02-21 17:26 | Outpatient (CLI) | payer MEDICAID ==
[2019-02-21 17:54] VITALS: BP 128/73
[2019-02-21] MEDS ORDERED: LACTATED RINGERS 1,000 ML IV ONE ×2 (18:31→19:51)
--- NOTE | 2019-02-21 18:38 | PROVIDER PROGRESS NOTE ---
Subjective - Prog Note Date Prog Note Date: 02/21/19 Prog Note Time: 18:30 Objective - Vital Signs/Intake & Output Vital Signs: Vital Signs x48h Temp Pulse Resp BP Pulse Ox 02/21/19 17:42 36.8 C 81 18 128/73 100 Assessment/Plan - Problem List (1) Uterine contractions at greater than 20 weeks of gestation Impression: 23 y/o @ 22w1d EGA by first trimester US w/ regular uterine contractions s/p acute onset diarrhea earlier this afternoon Reviewed clinical scenario w/ Dr. Jelena Maher MD, who will assume patient care from this point forward.
[2019-02-21 18:40] LABS: BILIRUBIN,URINE NEGATIVE (NEGATIVE); CLARITY,URINE CLEAR (CLEAR); GLUCOSE, URINE (UA) NEGATIVE (NEGATIVE); KETONES,URINE (UA) NEGATIVE (NEGATIVE); LEUKOCYTE ESTERASE, URINE NEGATIVE (NEGATIVE); NITRITE,URINE NEGATIVE (NEGATIVE); OCCULT BLOOD,URINE NEGATIVE (NEGATIVE); PH,URINE 6.5 PH (5.0-7.5); PROTEIN,URINE NEGATIVE (NEGATIVE); UROBILINOGEN,URINE 0.2 (NORMAL) E.U./dL (NORMAL)
[2019-02-21] MEDS ORDERED: SODIUM CHLORIDE FLUSH 0.9% 10 ML SYRINGE ONE (18:41)
[2019-02-21 18:48] LABS: BACTERIA,URINE Rare /HPF (None Seen); RBC,URINE None Seen /HPF (0-5); SQUAMOUS EPITHELIAL CELL,UR MOD Squamous (<= Few)
[2019-02-21 19:31] LABS: ALBUMIN/GLOBULIN RATIO 1.3 (1.0-2.2); BILIRUBIN,TOTAL 0.6 mg/dL (0.2-1.0); CALCIUM 8.9 mg/dL (8.5-10.3); CREATININE 0.4 mg/dL (0.4-1.0); TOTAL PROTEIN 7.2 g/dL (6.7-8.2)
[2019-02-21] MEDS ORDERED: LACTATED RINGERS 500 ML IV ONE (19:49)
--- NOTE | 2019-02-22 13:24 | DISCHARGE SUMMARY ---
Discharge Summary Condition at Discharge: Stable Discharge Disposition: 01 Home, Self Care - HOSPITAL COURSE Hospital Course: S: patient arrived to triage with abdominal cramping and diarrhea. No VB, no LOF. Good FM. Cramping initially was lower abdomen and intermittent like c ontractions. After hydration her cramping was less and it involved the entire abdomen. O: AVSS per RN report. NST: baseline 150. Kappa: irritable CMP: K of 3.4 UA: contaminated and negative Wet mount: neg A/P: 23yo at 22w with viral GI illness. Pt without history of delivery, complaining of abdominal cramping, improved after IV fluids. No contractions seen. Cramping c/w GI source as it involved the upper abdomen as well where the uterus is not yet present. No signs of labor. Sent home with BRAT diet and directive to continue hydration Pt evaluated over the phone with nursing report. Was not seen by MD. - ALLERGIES Allergies/Adverse Reactions: Allergies Allergy/AdvReac Type Severity Reaction Status Date / Time No Known Drug Allergies Allergy Verified 07/31/18 19:20 - MEDICATIONS Home Medications: Ambulatory Orders Medication Instructions Recorded Confirmed Norelgestromin/Ethin.estradiol 1 each TD ONCE #3 patch.tdwk 07/31/18 [Xulane Patch] - LABS Result Diagrams: 02/21/19 18:55
== END 2019-02-21 21:00 | disposition home or self-care (01) ==
LOC: WFO 17:26 → FBP 17:27 → WFO 21:00
PROVIDERS: ATTEND Registered Nurse
DX: O98.512 Other viral diseases complicating pregnancy, second trimester (principal); B34.9 Viral infection, unspecified; Z3A.22 22 weeks gestation of pregnancy
CPT/HCPCS: 80053; 81001; 87210; 87491; 87591; 96360; 99214; J7120; 82731; 87086

== ENCOUNTER 2019-04-01 15:56 | Outpatient (CLI) | payer MEDICAID ==
[2019-04-01 18:52] LABS: BASOPHILS % (AUTO) 0.3 %; EOSINOPHILS # (AUTO) 0.1 10^3/uL (0.0-0.7); EOSINOPHILS % (AUTO) 1.6 %; HGB - HEMOGLOBIN 11.5 g/dL (12.0-16.0); LYMPHOCYTES # (AUTO) 1.2 10^3/uL (1.5-3.5); LYMPHOCYTES % (AUTO) 16.7 %; MEAN CORPUSCULAR HEMOGLOBIN 32.3 pg (27.0-31.0); MEAN CORPUSCULAR HGB CONC 34.7 g/dL (32.0-36.0); MEAN CORPUSCULAR VOLUME 93.1 fL (81.0-99.0); MEAN PLATELET VOLUME 8.1 fL (7.9-10.8); MONOCYTES # (AUTO) 0.5 10^3/uL (0.0-1.0); MONOCYTES % (AUTO) 6.5 %; NEUTROPHILS # (AUTO) 5.6 10^3/uL (1.5-6.6); NEUTROPHILS % (AUTO) 74.9 %; PLT - PLATELET COUNT 153 10^3/uL (130-450); RED BLOOD COUNT 3.54 10^6/uL (4.20-5.40); RED CELL DISTRIBUTION WIDTH 13.2 % (12.0-15.0); WHITE BLOOD COUNT 7.4 x10^3/uL (4.8-10.8)
== END 2019-04-01 23:59 | disposition home or self-care (01) ==
LOC: LAB.N 15:56
PROVIDERS: ATTEND Nurse Practitioner Obstetrics & Gynecology
DX: Z36.89 Encounter for other specified antenatal screening (principal)
CPT/HCPCS: 36415; 82950; 85025; 86850

== ENCOUNTER 2019-04-22 22:46 | Outpatient (CLI) | payer MEDICAID ==
[2019-04-22 23:35] LABS: RUPTURE OF MEMBRANES PLUS NEGATIVE (NEGATIVE)
[2019-04-22] MEDS ORDERED: CALCIUM CARBONATE CHEW 500 MG TABLET PO SCH (23:45)
[2019-04-22] MEDS ORDERED: LACTATED RINGERS 1,000 ML IV ONE (23:53)
[2019-04-23] MEDS ORDERED: SODIUM CHLORIDE FLUSH 0.9% 10 ML SYRINGE IVP PRN
[2019-04-23] MEDS ORDERED: TERBUTALINE 1 MG/ML VIAL SUBQ ONE (00:39)
[2019-04-23 01:25] VITALS: BP 141/68
[2019-04-23 01:32] LABS: BILIRUBIN,URINE NEGATIVE (NEGATIVE); GLUCOSE, URINE (UA) NEGATIVE (NEGATIVE); KETONES,URINE (UA) NEGATIVE (NEGATIVE); LEUKOCYTE ESTERASE, URINE NEGATIVE (NEGATIVE); NITRITE,URINE NEGATIVE (NEGATIVE); OCCULT BLOOD,URINE NEGATIVE (NEGATIVE); PROTEIN,URINE NEGATIVE (NEGATIVE); UROBILINOGEN,URINE 0.2 (NORMAL) E.U./dL (NORMAL)
[2019-04-23 01:34] LABS: CLARITY,URINE CLEAR (CLEAR)
[2019-04-23 01:39] LABS: BACTERIA,URINE Rare /HPF (None Seen); RBC,URINE 0-5 /HPF (0-5); SQUAMOUS EPITHELIAL CELL,UR FEW Squamous (<= Few)
--- NOTE | 2019-04-23 01:47 | Ultrasound Report ---
Reason: apolonia Procedure Date: 04/23/2019 Accession Number: [id number] / [id number] Procedure: US - OB Transvaginal CPT Code: FULL RESULT: EXAM: LIMITED OBSTETRICAL ULTRASOUND EXAM DATE: 04/23/2019 12:45 AM. CLINICAL HISTORY: Apolonia . COMPARISON: 01/29/2019. TECHNIQUE: Real-time sonographic evaluation of the fetus performed by the package handler. Multiple branch service representative static images were saved for review. Additional transvaginal imaging to more accurately evaluate cervical length/placental position/etc. DATING: Established EGA 30 weeks 5 days with CHAKA 06/27/2019. GENERAL EVALUATION Aguilar . Cardiac activity: 144 bpm. movement: Visualized. Presentation: Cephalic. Placenta: Anterior position. No placenta previa seen. Amniotic fluid: Normal. DK 16.8 cm. MVP 4.6 cm. MATERNAL STRUCTURES Cervix: Long and closed, measuring 3.4 cm on endovaginal images. IMPRESSION: 1. Aguilar live intrauterine with gestational age 30 weeks 5 days based on established CHAKA. 2. Cervix appears long and closed, measuring 3.4 cm on endovaginal images. RADIA
--- NOTE | 2019-04-23 07:27 | PROCEDURE REPORT ---
- HPI Diagnosis/Indication for NST: Decreased movement Current EDU 06/26/19 Gestation 30 Weeks and 5 Days 3 Para 1 Vital Signs Temperature 36.6 C 04/22/19 22:54 Heart Rate 86 04/22/19 22:54 Respiratory Rate 20 04/22/19 22:54 Blood Pressure 129/85 H 04/22/19 22:54 O2 Saturation 100 04/22/19 22:54 Temperature 36.5 C 04/23/19 01:24 Heart Rate 90 04/23/19 01:24 Respiratory Rate 16 04/23/19 01:24 Blood Pressure 141/68 H 04/23/19 01:24 O2 Saturation 100 04/23/19 01:24 - NST Procedure NST Procedure Start Date 04/22/19 Start Time 22:55 Vibroacoustic Stimulation Used No Patient States Movement Yes - Results and Plan Findings/Impression: 24yo @ 30.6wks gestation presents to [facility] with a primary complaint of uterine contractions in addition to intermittent, vaginal leakage of small amount of clear fluid, and decreased movement for the past 2-3 days. Upon arrival her tocometry revealed 2 mild contractions over a 30 minute period of time. FHR baseline 140s, moderate variability, + accels, no decels. She denies vaginal bleeding. After 30 minutes of continuous monitoring the patient began to experience worsening discomfort and increased frequency of uterine contractions. She stated at that time that the contractions had increased significantly since being here. Tocometry reveals consistent uterine contractions every 2-4 minutes lasting 30-45 seconds and palpating mild with soft resting tone. Patient able to increase her oral fluid intake and drank 40oz water following her arrival with resulting increased urine output. Terbutaline 0.25 administered and contractions stopped. She was monitoring x 1 hour following her last contractions. Pt states after administration of terbutaline she felt significantly better. No continued activity via tocometry. FHR Category I. Assessment: 24yo @ 30.6wks gestation Threatened labor <37wks gestation Decreased movement Vaginal leakage of fluid Results: ROM+ negative FFN negative UA neg AFFIRM collected - pending Transvaginal cervical length 3.4cm and closed SVE cl/th/high Plan: Pt released home with precautions. Advised prompt return if contractions return. Advised increased fluid intake and rest. F/u appt next week or pt to return sooner PRN. Pt denies further questions or concerns at this time. Plan: Plan: Pt released home with precautions. Advised prompt return if contractions return. Advised increased fluid intake and rest. F/u appt next week or pt to return sooner PRN. Pt denies further questions or concerns at this time.
[2019-04-23 21:29] LABS: CANDIDA GROUP DNA NEGATIVE (NEGATIVE); CANDIDA KRUSEI DNA NEGATIVE (NEGATIVE); TRICHOMONAS VAGINALIS DNA NEGATIVE (NEGATIVE)
== END 2019-04-23 01:54 | disposition home or self-care (01) ==
LOC: EMS 22:46 → FBP 22:49 → WFO 04-23 01:54
PROVIDERS: ATTEND Nurse Practitioner Obstetrics & Gynecology
DX: O47.03 False labor before 37 completed weeks of gestation, third trimester (principal); O36.8130 Decreased fetal movements, third trimester, not applicable or unspecified; O99.89 Other specified diseases and conditions complicating pregnancy, childbirth and the puerperium; N89.8 Other specified noninflammatory disorders of vagina; Z3A.30 30 weeks gestation of pregnancy
CPT/HCPCS: 76817; 81001; 82731; 84112; 87481; 87661; 87801; 96372; 99213; A9270; J7120; 87086

== ENCOUNTER 2019-04-27 21:42 | Outpatient (CLI) | payer MEDICAID ==
[2019-04-27 22:18] VITALS: BP 143/84
[2019-04-27] MEDS ORDERED: LACTATED RINGERS 1,000 ML IV ONE ×2 (22:45→23:10)
[2019-04-27] MEDS ORDERED: SODIUM CHLORIDE FLUSH 0.9% 10 ML SYRINGE ONE ×2 (22:52→23:12)
[2019-04-27 22:56] LABS: BILIRUBIN,URINE NEGATIVE (NEGATIVE); CLARITY,URINE CLEAR (CLEAR); GLUCOSE, URINE (UA) NEGATIVE (NEGATIVE); KETONES,URINE (UA) NEGATIVE (NEGATIVE); LEUKOCYTE ESTERASE, URINE SMALL (NEGATIVE); NITRITE,URINE NEGATIVE (NEGATIVE); OCCULT BLOOD,URINE NEGATIVE (NEGATIVE); PROTEIN,URINE NEGATIVE (NEGATIVE); UROBILINOGEN,URINE 0.2 (NORMAL) E.U./dL (NORMAL)
[2019-04-27 23:03] LABS: BACTERIA,URINE Rare /HPF (None Seen); RBC,URINE None Seen /HPF (0-5); SQUAMOUS EPITHELIAL CELL,UR MANY Squamous (<= Few)
[2019-04-27 23:05] LABS: CREATININE,URINE < 13.0 mg/dL
[2019-04-27 23:07] LABS: TOTAL PROTEIN,URINE TIMED < 6 mg/dL
[2019-04-27 23:10] LABS: BASOPHILS % (AUTO) 0.2 %; EOSINOPHILS # (AUTO) 0.1 10^3/uL (0.0-0.7); EOSINOPHILS % (AUTO) 1.4 %; HGB - HEMOGLOBIN 11.7 g/dL (12.0-16.0); LYMPHOCYTES # (AUTO) 1.7 10^3/uL (1.5-3.5); LYMPHOCYTES % (AUTO) 16.6 %; MEAN CORPUSCULAR HGB CONC 35.1 g/dL (32.0-36.0); MEAN CORPUSCULAR VOLUME 91.1 fL (81.0-99.0); MEAN PLATELET VOLUME 7.3 fL (7.9-10.8); MONOCYTES # (AUTO) 0.8 10^3/uL (0.0-1.0); MONOCYTES % (AUTO) 7.7 %; NEUTROPHILS # (AUTO) 7.6 10^3/uL (1.5-6.6); NEUTROPHILS % (AUTO) 74.1 %; PLT - PLATELET COUNT 157 10^3/uL (130-450); RED BLOOD COUNT 3.67 10^6/uL (4.20-5.40); RED CELL DISTRIBUTION WIDTH 12.9 % (12.0-15.0); WHITE BLOOD COUNT 10.2 x10^3/uL (4.8-10.8)
[2019-04-27 23:26] LABS: URIC ACID 2.8 mg/dL (2.6-7.2)
[2019-04-28] MEDS ORDERED: TERBUTALINE 1 MG/ML VIAL SUBQ ONE (00:03)
[2019-04-28] MEDS ORDERED: ACETAMINOPHEN 325 MG TABLET PO ONE (00:04)
[2019-04-28] MEDS ORDERED: ACETAMINOPHEN 500 MG TABLET PO ONE (01:00)
--- NOTE | 2019-04-28 01:45 | Ultrasound Report ---
Reason: Pain in upper thigh Procedure Date: 04/28/2019 Accession Number: [id number] / [id number] Procedure: US - Duplex Ext Veins Right CPT Code: FULL RESULT: EXAM: RIGHT LOWER EXTREMITY VENOUS ULTRASOUND EXAM DATE: 04/28/2019 12:33 AM. CLINICAL HISTORY: 31 weeks , right upper thigh pain. COMPARISON: None. TECHNIQUE: Real-time sonographic vascular imaging was performed by the cake press operator helper through the lower extremity utilizing both color-flow and Doppler spectral analysis. Multiple sales training representative static images were saved for review. FINDINGS: Common Femoral Vein (CFV): No evidence of thrombus. CFV-GSV Junction: No evidence of thrombus. Profunda Femoral Vein (PFV): No evidence of thrombus. Femoral Vein (FV) Prox: No evidence of thrombus. Femoral Vein (FV) Mid: No evidence of thrombus. Femoral Vein (FV) Dist: No evidence of thrombus. Popliteal Vein: No evidence of thrombus. Posterior Tibial Veins: No evidence of thrombus. Peroneal Veins: No evidence of thrombus. Other: None. IMPRESSION: No evidence for deep venous thrombosis. RADIA
--- NOTE | 2019-04-29 13:29 | PROVIDER PROGRESS NOTE ---
- HPI Chief Complaint: Other Current : Vital Signs Temperature 36.8 C 04/27/19 21:58 Heart Rate 84 04/27/19 21:58 Respiratory Rate 18 04/27/19 21:58 Blood Pressure 141/73 H 04/27/19 21:58 O2 Saturation 98 04/27/19 21:58 Temperature 36.8 C 04/27/19 21:58 Heart Rate 84 04/27/19 21:58 Respiratory Rate 18 04/27/19 21:58 Blood Pressure 143/84 H 04/27/19 22:16 O2 Saturation 98 04/27/19 21:58 - Exam Cherelle presents to [facility] with c/o right upper leg pain above her knee which has been unrelieved by application of heat, ice, and tylenol. She feels that her right leg may be slightly larger than her left leg however upon examination her legs are equally sized with no evidence of increased swelling or edema to right leg. She denies vaginal bleeding or leakage of fluid. She reports continued, intermittent contractions which she appreciates as uterine cramping. She states they are very similar to the contractions she was experiencing when she presented to [facility] 04/23/2019. She was given terbutaline at that time which helped resolve her contractions, but she reports upon returning home, her discomfort continued. She declines administration of terbutaline today and states it did nothing to help her before. Doppler flow studies reveal no DVT IV inserted and 500mL fluid bolus administered with little improvement in uterine contractions. 04/23/2019 FFN neg Transvaginal cervical length 04/23/2019 WNL w/o evidence of shortening or dilation. SVE cl/th/high today Upon arrival her BP was slightly elevated 142/80. She has a hx of preeclampsia. Her BP improved through the duration of her time in triage, however secondary to her hx and PIH panel was completed. Uric acid: 2.8 AST 23 LDH 145 Hgb 11/7; Hct 33.4 PLT 157 Mtp/creatinine ratio <6mg/dL creatinine urine <13.0 UA negative protein UA = culture indicated - will wait to treat patient until results are received Previously diagnosed bacterial vaginosis via AFFIRM which was collected at her last visit. Pt has not obtained Rx - strongly advised her to do so as untreated BV can lead to labor and delivery. She verbalized understanding and agrees to complete medication regimen for treatment. Patient released home with precautions and instructed to f/u in the office within the next couple of days. Reviewed PTL precautions and FM monitoring. Pt verbalized understanding and agrees to above plan. She denies further questions or concerns at this time. - Procedures OB Procedure Performed: NST Diagnosis/Indication for NST: labor NST Procedure: NST Procedure Start Time 22:55 Procedure Details: NST reactive; baseline 140s moderate variability, + accels, no decels Category I Uterine irritability noted. Pt denies pain. - Plan Plan: UA = culture indicated - will wait to treat patient until results are received Previously diagnosed bacterial vaginosis via AFFIRM which was collected at her last visit. Pt has not obtained Rx - strongly advised her to do so as untreated BV can lead to labor and delivery. She verbalized understanding and agrees to complete medication regimen for treatment. Patient released home with precautions and instructed to f/u in the office within the next couple of days. Reviewed PTL precautions and FM monitoring. Pt verbalized understanding and agrees to above plan. She denies further questions or concerns at this time.
== END 2019-04-28 02:00 | disposition home or self-care (01) ==
LOC: WFO 21:42 → FBP 21:44 → WFO 04-28 02:00
PROVIDERS: ATTEND Nurse Practitioner Obstetrics & Gynecology
DX: O99.89 Other specified diseases and conditions complicating pregnancy, childbirth and the puerperium (principal); M79.651 Pain in right thigh; O47.00 False labor before 37 completed weeks of gestation, unspecified trimester; O23.599 Infection of other part of genital tract in pregnancy, unspecified trimester; T50.906A Underdosing of unspecified drugs, medicaments and biological substances, initial encounter; Z91.128 Patient's intentional underdosing of medication regimen for other reason; Z86.79 Personal history of other diseases of the circulatory system
CPT/HCPCS: 81001; 82570; 83615; 84156; 84450; 84550; 85025; 93971; 99214; A9270; J7120; 81003

== ENCOUNTER 2019-05-06 08:00 | Outpatient (CLI) | payer MEDICAID ==
[2019-05-06 21:39] LABS: CANDIDA GROUP DNA POSITIVE (NEGATIVE); CANDIDA KRUSEI DNA NEGATIVE (NEGATIVE); TRICHOMONAS VAGINALIS DNA NEGATIVE (NEGATIVE)
== END 2019-05-06 23:59 | disposition home or self-care (01) ==
LOC: LAB.R 08:00
PROVIDERS: ATTEND Nurse Practitioner Obstetrics & Gynecology
DX: N76.0 Acute vaginitis (principal)
CPT/HCPCS: 87661; 87801

== ENCOUNTER 2019-05-29 08:00 | Outpatient (CLI) | payer MEDICAID ==
[2019-05-29 23:05] LABS: TRICHOMONAS VAGINALIS DNA NEGATIVE (NEGATIVE)
== END 2019-05-29 08:01 | disposition home or self-care (01) ==
LOC: LAB.R 08:00
PROVIDERS: ATTEND Obstetrics & Gynecology
DX: O09.299 Supervision of pregnancy with other poor reproductive or obstetric history, unspecified trimester (principal)
CPT/HCPCS: 87491; 87591; 87661; 87797

== ENCOUNTER 2019-05-29 15:47 | Outpatient (CLI) | payer MEDICAID ==
[2019-05-29 16:21] LABS: BASOPHILS % (AUTO) 0.3 %; EOSINOPHILS # (AUTO) 0.1 10^3/uL (0.0-0.7); EOSINOPHILS % (AUTO) 0.9 %; HGB - HEMOGLOBIN 12.3 g/dL (12.0-16.0); LYMPHOCYTES # (AUTO) 1.4 10^3/uL (1.5-3.5); LYMPHOCYTES % (AUTO) 20.9 %; MEAN CORPUSCULAR HEMOGLOBIN 31.3 pg (27.0-31.0); MEAN CORPUSCULAR HGB CONC 33.6 g/dL (32.0-36.0); MEAN CORPUSCULAR VOLUME 93.1 fL (81.0-99.0); MONOCYTES # (AUTO) 0.5 10^3/uL (0.0-1.0); MONOCYTES % (AUTO) 7.5 %; NEUTROPHILS # (AUTO) 4.7 10^3/uL (1.5-6.6); NEUTROPHILS % (AUTO) 70.1 %; PLT - PLATELET COUNT 164 10^3/uL (130-450); RED BLOOD COUNT 3.93 10^6/uL (4.20-5.40); RED CELL DISTRIBUTION WIDTH 12.9 % (12.0-15.0); WHITE BLOOD COUNT 6.8 x10^3/uL (4.8-10.8)
[2019-05-29 16:34] LABS: URIC ACID 3.7 mg/dL (2.6-7.2)
[2019-05-29 16:45] LABS: CREATININE,URINE 40.4 mg/dL; PROTEIN/CREATININE RATIO,URINE 0.2 (<=0.2)
[2019-05-29] MEDS: ACETAMINOPHEN 500 MG TABLET PO ONE (17:43)
[2019-05-29 18:54] VITALS: BP 142/90
--- NOTE | 2019-06-03 07:47 | PROVIDER PROGRESS NOTE ---
- HPI Chief Complaint: Labor Check (Cherelle is a 24 yo at 36w0d with hx of PTD here with cramping and YOUNG Went to knot picker cloth her TV remote last night and felt a popping sensation. No gross LOF. Contractions started after and she had several episodes of diarrbea. No VB. Endorses FM. Mild YOUNG with mildly elevated blood pressures. No vision change or RUQ pain. Confirmed she has started valacyclovir.) Current : Current EDU 06/26/19 Gestation 36 Weeks and 0 Days 3 Para 1 Vital Signs Temperature 97.9 F 05/29/19 15:55 Heart Rate 75 05/29/19 15:55 Respiratory Rate 16 05/29/19 15:55 Blood Pressure 141/105 H 05/29/19 15:55 O2 Saturation 100 05/29/19 15:55 Temperature 97.9 F 05/29/19 15:55 Heart Rate 87 05/29/19 18:53 Respiratory Rate 16 05/29/19 15:55 Blood Pressure 142/90 H 05/29/19 18:53 O2 Saturation 100 05/29/19 15:55 - Exam SVE 360/-2 - Procedures OB Procedure Performed: NST Diagnosis/Indication for NST: labor NST Procedure: NST Procedure Start Date 05/29/19 Start Time 15:58 Stop Time 16:25 Vibroacoustic Stimulation Used Yes Patient States Movement Yes Baseline 150 mod do 5x15 accels no decels TOCO: Q5-8 min Cat I tracing Service Date of procedure: 05/29/19 Procedure Details: Cat I tracing on NST Intermittent contractions on TOCO No change in SVE over 2+ hours observation Findings: No change in SVE Cat I tracing Normal PIH labs DC to home with warnng signs reviewed
== END 2019-05-29 19:20 | disposition home or self-care (01) ==
LOC: WFO 15:47 → FBP 15:49 → WFO 19:20
PROVIDERS: ATTEND Obstetrics & Gynecology
DX: O09.213 Supervision of pregnancy with history of pre-term labor, third trimester (principal); Z3A.36 36 weeks gestation of pregnancy; R19.7 Diarrhea, unspecified; R51 Headache; R03.0 Elevated blood-pressure reading, without diagnosis of hypertension; Z79.899 Other long term (current) drug therapy; O09.299 Supervision of pregnancy with other poor reproductive or obstetric history, unspecified trimester
CPT/HCPCS: 36415; 82570; 83615; 84156; 84450; 84550; 85025; 85384; 87491; 87591; 87661; 87797; 99214; A9270

== ENCOUNTER 2019-06-01 15:04 | Outpatient (CLI) | payer MEDICAID ==
[2019-06-01 15:51] LABS: BASOPHILS % (AUTO) 0.1 %; EOSINOPHILS # (AUTO) 0.1 10^3/uL (0.0-0.7); HGB - HEMOGLOBIN 11.7 g/dL (12.0-16.0); LYMPHOCYTES # (AUTO) 1.5 10^3/uL (1.5-3.5); LYMPHOCYTES % (AUTO) 20.8 %; MEAN CORPUSCULAR HEMOGLOBIN 31.1 pg (27.0-31.0); MEAN CORPUSCULAR HGB CONC 33.6 g/dL (32.0-36.0); MEAN CORPUSCULAR VOLUME 92.6 fL (81.0-99.0); MEAN PLATELET VOLUME 9.1 fL (7.9-10.8); MONOCYTES # (AUTO) 0.6 10^3/uL (0.0-1.0); MONOCYTES % (AUTO) 8.9 %; NEUTROPHILS # (AUTO) 4.9 10^3/uL (1.5-6.6); NEUTROPHILS % (AUTO) 68.9 %; PLT - PLATELET COUNT 170 10^3/uL (130-450); RED BLOOD COUNT 3.76 10^6/uL (4.20-5.40); RED CELL DISTRIBUTION WIDTH 12.9 % (12.0-15.0); WHITE BLOOD COUNT 7.1 x10^3/uL (4.8-10.8)
[2019-06-01 16:04] LABS: URIC ACID 3.9 mg/dL (2.6-7.2)
[2019-06-01 16:13] LABS: CREATININE,URINE 20.2 mg/dL
[2019-06-01 16:18] VITALS: BP 133/79
[2019-06-01 16:20] LABS: TOTAL PROTEIN,URINE TIMED < 6 mg/dL
--- NOTE | 2019-06-01 17:00 | PROVIDER PROGRESS NOTE ---
- HPI Chief Complaint: Headache (The patient came to the OB department complaining of a headache and some left-sided pain.She denied any vaginal bleeding or fluid. She denies any contractions.) Current : Current EDU 06/26/19 Gestation 36 Weeks and 3 Days 3 Para 1 Vital Signs Temperature 36.8 C 06/01/19 15:19 Heart Rate 67 06/01/19 15:19 Respiratory Rate 16 06/01/19 15:19 Blood Pressure 139/78 H 06/01/19 15:19 O2 Saturation 100 06/01/19 15:19 Temperature 36.8 C 06/01/19 15:19 Heart Rate 79 06/01/19 16:15 Respiratory Rate 18 06/01/19 16:00 Blood Pressure 133/79 H 06/01/19 16:15 O2 Saturation 100 06/01/19 15:27 - Procedures OB Procedure Performed: NST Diagnosis/Indication for NST: Other (Headache abdominal pain) NST Procedure: NST Procedure Start Time 22:55 Service Date of procedure: 06/01/19 Procedure Details: Reactive NST read on 06/01/2019 Laboratory Tests 06/01/19 06/01/19 06/01/19 15:09 15:09 15:09 WBC 7.1 RBC 3.76 L Hgb 11.7 L Hct 34.8 L MCV 92.6 MCH 31.1 H MCHC 33.6 RDW 12.9 Plt Count 170 MPV 9.1 Neut # (Auto) 4.9 Lymph # (Auto) 1.5 [place] # (Auto) 0.6 Eos # (Auto) 0.1 Baso # (Auto) 0.0 Absolute Nucleated RBC 0.00 Nucleated RBC % 0.0 Uric Acid AST Lactate Dehydrogenase 155 Urine Creatinine 20.2 Ur Total Protein Timed < 6 Protein/Creatinin Ratio Not Reportable 06/01/19 15:09 WBC RBC Hgb Hct MCV MCH MCHC RDW Plt Count MPV Neut # (Auto) Lymph # (Auto) [place] # (Auto) Eos # (Auto) Baso # (Auto) Absolute Nucleated RBC Nucleated RBC % Uric Acid 3.9 AST 22 Lactate Dehydrogenase Urine Creatinine Ur Total Protein Timed Protein/Creatinin Ratio Findings: There is a reactive NST noted. Lungs: Lungs are clear to auscultation bilaterally Heart: Heart has a regular rate and rhythm without murmur Abdomen: The abdomen is soft pliable and nontender. Uterus: The uterus is soft and pliable and nontender. It is gravid. Laboratory Results - last 24 hr 06/01/19 06/01/19 06/01/19 15:09 15:09 15:09 WBC 7.1 RBC 3.76 L Hgb 11.7 L Hct 34.8 L MCV 92.6 MCH 31.1 H MCHC 33.6 RDW 12.9 Plt Count 170 MPV 9.1 Neut # (Auto) 4.9 Lymph # (Auto) 1.5 [place] # (Auto) 0.6 Eos # (Auto) 0.1 Baso # (Auto) 0.0 Absolute Nucleated RBC 0.00 Nucleated RBC % 0.0 Uric Acid AST Lactate Dehydrogenase 155 Urine Creatinine 20.2 Ur Total Protein Timed < 6 Protein/Creatinin Ratio Not Reportable 06/01/19 15:09 WBC RBC Hgb Hct MCV MCH MCHC RDW Plt Count MPV Neut # (Auto) Lymph # (Auto) [place] # (Auto) Eos # (Auto) Baso # (Auto) Absolute Nucleated RBC Nucleated RBC % Uric Acid 3.9 AST 22 Lactate Dehydrogenase Urine Creatinine Ur Total Protein Timed Protein/Creatinin Ratio - Plan Plan: Impression: Intrauterine at 36 3/7 weeks gestation Mild dehydration It is felt that the patient was slightly dehydrated.Since all of her laboratories look okay and she has a reactive NST this felt that she can be safely discharged home.Her headache actually seems to be improving. We talked about the need to increase her fluids. I do feel that the headache was secondary toDehydration. We talked about also the use of Tylenol. She states that she will start using this at home. She has an appointment scheduled already for . She will keep that appointment. She will return to OB for evaluation if any other problems with ensue.
== END 2019-06-01 16:45 | disposition home or self-care (01) ==
LOC: WFO 15:04 → FBP 15:06 → WFO 16:45
PROVIDERS: ATTEND Obstetrics & Gynecology
DX: O99.283 Endocrine, nutritional and metabolic diseases complicating pregnancy, third trimester (principal); Z3A.36 36 weeks gestation of pregnancy; E86.0 Dehydration
CPT/HCPCS: 36415; 82570; 83615; 84156; 84450; 84550; 85025; 99213

== ENCOUNTER 2019-06-04 19:31 | Inpatient (IN) | payer MEDICAID ==
[2019-06-04] MEDS ORDERED: SODIUM CHLORIDE FLUSH 0.9% 10 ML SYRINGE IVP PRN (20:13)
[2019-06-04] MEDS ORDERED: SODIUM CHLORIDE FLUSH 0.9% 10 ML SYRINGE ONE (20:20)
[2019-06-04] MEDS ORDERED: LACTATED RINGERS 1,000 ML IV ONE (20:20)
[2019-06-04] MEDS: LACTATED RINGERS 1,000 ML IV SCH (20:42)
[2019-06-04 20:44] LABS: BASOPHILS % (AUTO) 0.2 %; EOSINOPHILS # (AUTO) 0.1 10^3/uL (0.0-0.7); EOSINOPHILS % (AUTO) 0.8 %; HGB - HEMOGLOBIN 11.5 g/dL (12.0-16.0); LYMPHOCYTES # (AUTO) 1.8 10^3/uL (1.5-3.5); LYMPHOCYTES % (AUTO) 19.2 %; MEAN CORPUSCULAR HEMOGLOBIN 31.2 pg (27.0-31.0); MEAN CORPUSCULAR HGB CONC 34.3 g/dL (32.0-36.0); MEAN CORPUSCULAR VOLUME 90.8 fL (81.0-99.0); MEAN PLATELET VOLUME 9.3 fL (7.9-10.8); MONOCYTES # (AUTO) 0.7 10^3/uL (0.0-1.0); NEUTROPHILS # (AUTO) 6.7 10^3/uL (1.5-6.6); NEUTROPHILS % (AUTO) 72.4 %; PLT - PLATELET COUNT 176 10^3/uL (130-450); RED BLOOD COUNT 3.69 10^6/uL (4.20-5.40); RED CELL DISTRIBUTION WIDTH 12.8 % (12.0-15.0); WHITE BLOOD COUNT 9.3 x10^3/uL (4.8-10.8)
[2019-06-04 20:55] LABS: URIC ACID 4.1 mg/dL (2.6-7.2)
[2019-06-04] MEDS ORDERED: CALCIUM CARBONATE CHEW 500 MG TABLET PO SCH (21:00)
--- NOTE | 2019-06-04 21:17 | HISTORY & PHYSICAL EXAMINATION ---
Admit History - Visit Reason Visit Reason: Membranes rupture - : 3 Parity: 1 Premature: 0 Ectopic: 0 : 1 Care: positive: [facility] Risk/History: positive: Other Complications This : positive: Other Smoking Status: Current every day smoker - Mother's Labs Mother's Blood Type: positive: O Mother's RH: positive: Positive GBS: positive: Group B Step Negative Rubella Status: positive: Immune Meds/Allgy - Home Medications Home Medications: Ambulatory Orders Medication Instructions Recorded Confirmed Norelgestromin/Ethin.estradiol 1 each TD ONCE #3 patch.tdwk 07/31/18 [Xulane Patch] - Allergies Allergies/Adverse Reactions: Allergies Allergy/AdvReac Type Severity Reaction Status Date / Time No Known Drug Allergies Allergy Verified 07/31/18 19:20 Review of Systems - Constitutional Constitutional: denies: Fatigue, Fever, Chills, Malaise - Eyes Eyes: denies: Blurred vision, Spots in vision, Dipolpia - Cardiovascular Cariovascular: denies: Irregular heart rate, Palpitations, Chest pain, Edema - Respiratory Respiratory: denies: SOB at rest - Gastrointestinal Gastrointestinal: reports: Diarrhea. denies: Constipation, Nausea, Vomiting - Integumentary Integumentary: denies: Rash, Pruritis - Neurological Neurological: denies: Headache, Dizziness - Psychiatric Psychiatric: denies: Depression, Anxiety, Suicidal Physical - Abdominal Exam Contraction Frequency (min/apart): 4-6 Contraction Intensity: positive: Moderate Uterine Resting Tone: positive: Soft - Monitoring Heart Rate Baseline: 150 Strip Review: positive: Category I - Presentation Presentation: positive: Vertex - Vaginal Exam Membranes: positive: Membranes ruptured Plan for Labor - Plan For Labor I expect patient to be DC'd or transferred within 96 hours.: Yes Plan for Labor: HPI: This 24yo @ 36.4wks gestation by LMP c/w 6.2 wk U/S presents to [facility] with c/o leakage of clear vaginal fluid. Upon arrival she was noted to have grossly ruptured membranes. SVE 3/75/-3, posterior, vertex, soft. She was also noted to have moderately elevated BPs. She was induced at 38wks with her last secondary to gestational HTN. She denies YOUNG, visual disturbances, RUQ or epigastric pain. She has been a patient of [facility] through the duration of her . Her has essentially been uncomplicated with the exception of positive chlamydia 05/29/2019 which she has not yet received treatment for. She has a hx of HSV - initiated acyclovir @ 36wks gestation. She was admitted to [facility] for active management. Dating criteria: LMP 09/19/2018 Initial Ultrasound @ 6.2wks gestation - agrees Serial exams - agree OB History: G1: 09/27/2015 38wks gestation IOL secondary to gestational HTN. Epidural. [facility] with Dr. Mccoy G2: 11/26/2016 EAB w/ D&C G3: current; + chlamydia; Recurrent vaginitis in . 07/05/19 vaginal marla Medications: PNV; valacyclovir Allergies: Monistat PMHx: Seasonal allergies Surgical Hx: D&C 04/2017 Social Hx: Marijuana use daily throughout . Former tobacco smoker - quit during . STI hx positive chlamydia and has not yet received treatment. Positive HSV hx - initiated acyclovir at 36wks gestation. Partner - Louis and they have a strained dynamic. Family Hx: Breast Cancer- mother; Ovarian cancer - aunt; brain cancer - aunt; Leukemia - maternal grandmother labs: Hgb 11.5 Hct 33.5 PLT 176 Blood type A positive Antibody neg RPR neg Rubella immune Hep B neg HIV neg Urine culture neg GC/CT 02/21/2019 with labs - negative Repeat @ 36wks GBS NEG Immunizations: Tdap 04/24/2019 Ultrasounds: Initial ultrasound @ 6.2wks gestation reveals SVIUP with size c/w LMP dating FAS WNL; Anterior placenta, no previa. 3VC. Size c/w dating Physical Exam: Normocephalic, atraumatic Heart RRR w/o M/G/R Lungs CTAB Abdomen gravid, soft, nontender EFW 3000g SVE 3/75/-3, posterior, soft, vertex, grossly ruptured Bilateral LE's no edema DTRs 2+, no clonus Mood good Assessment: 24yo @ 36.4wks gestation by LMP Early labor Moderately elevated BPs upon arrival - PI labs WNL GBS negative + Chlamydia - untreated FHR Category I Plan: Admit for active management Continuous monitoring 1g Azythromycin administered PO for CT treatment - will ensure claims specialist is aware at delivery of infant Close monitoring of BPs Dr. De La Garza notified of patient status upon arrival Epidural per maternal request Initiate pitocin with titration per protocol Anticipate spontaneous vaginal delivery.
[2019-06-04] MEDS: AZITHROMYCIN 250 MG TABLET PO SCH (21:19)
[2019-06-04] MEDS ORDERED: AZITHROMYCIN 250 MG TABLET PO ONE ×2 (21:24→21:33)
[2019-06-04 22:04] LABS: PROTEIN/CREATININE RATIO,URINE 0.5 (<=0.2)
[2019-06-04] MEDS ORDERED: fent/BUPIV 2 MCG/0.125% 250 ML EP ONE (22:11)
--- NOTE | 2019-06-04 22:23 | ANESTHESIA ---
Pre-Anesthesia VS, & Labs - Diagnosis active labor - Procedure labor epidural Height 5 ft 4 in Weight (kg) 75.75 kg Body Mass Index 23.5 - NPO Other (1800) - Is Patient ?: Yes - Lab Results Current Lab Results: Laboratory Tests 06/04/19 20:32: Fibrinogen 583 H 06/04/19 20:32: Uric Acid 4.1, AST 32 06/04/19 20:32: WBC 9.3, RBC 3.69 L, Hgb 11.5 L, Hct 33.5 L, MCV 90.8, MCH 31.2 H, MCHC 34.3, RDW 12.8, Plt Count 176, MPV 9.3, Neut # (Auto) 6.7 H, Lymph # (Auto) 1.8, [place] # (Auto) 0.7, Eos # (Auto) 0.1, Baso # (Auto) 0.0, Absolute Nucleated RBC 0.00, Nucleated RBC % 0.0 06/04/19 20:32: Lactate Dehydrogenase 204 Lab results reviewed: Yes Fish Bones: 06/04/19 20:32 Home Medications and Allergies Active Medications Azithromycin (Zithromax) 1,000 mg PO DAILY [facility] Last Admin: 06/04/19 21:19 Dose: 1,000 mg Calcium Carbonate/Glycine (Tums) 500 mg PO BID [facility] Last Admin: 06/04/19 21:30 Dose: 500 mg Lactated Ringer's (Lr) 1,000 mls @ 150 mls/hr IV .Q6H40M [facility] Last Admin: 06/04/19 20:42 Dose: 150 mls/hr OXYTOCIN/DEXTROSE 5 % (Pitocin/Dextrose 5%) 30 unit in 500 mls @ 1 mls/hr IV TITR [facility]; Protocol Sodium Chloride (Normal Saline Flush 0.9%) 10 ml IVP PRN PRN PRN Reason: NEEDED PER PROVIDER ORDERS Sodium Chloride (Normal Saline Flush 0.9%) 10 ml IVP 0100,0900,1700 [facility] Last Admin: 06/04/19 20:42 Dose: 10 ml Allergies/Adverse Reactions: Allergies Allergy/AdvReac Type Severity Reaction Status Date / Time No Known Drug Allergies Allergy Verified 07/31/18 19:20 Anes History & Medical History - Anesthetic History Anesthesia Complications: reports: No previous complications Family history of Anesthesia Complications: Denies Family history of Malignant Hyperthermia: Denies - Medical History Cardiovascular: reports: None Pulmonary: reports: None Gastrointestinal: reports: None Urinary: reports: None Musculoskeletal: reports: None Endocrine/Autoimmune: reports: None Skin: reports: None Smoking Status: Current every day smoker - Obstetrical History : 3 Parity: 1 Events: positive: Other Complications: positive: Other Exam General: Alert, Oriented x3, Cooperative, No acute distress Dental: WNL Mouth Openin Fingerbreadth Neck Mobility: Normal Mallampati classification: III Thyromental Distance: greater than 6 cm Respiratory: Lungs clear, Normal breath sounds, No respiratory distress, No accessory muscle use Cardiovascular: Regular rate, Normal S1, Normal S2, No murmurs Plan Anesthesia Type: Epidural Consent for Procedure(s) Verified and Reviewed: Yes Code Status: Attempt Resuscitation ASA classification: 2-Mild systemic disease Is this case an emergency?: No
[2019-06-04] MEDS ORDERED: LACTATED RINGERS 500 ML IV ONE ×2 (22:52→22:58)
[2019-06-04] MEDS ORDERED: diphenhydrAMINE INJ 50 MG/ML VIAL IVP PRN ×2 (22:52→22:58)
[2019-06-04] MEDS ORDERED: ePHEDrine 50 MG/ML VIAL IVP PRN ×2 (22:52→22:58)
[2019-06-04] MEDS ORDERED: fent/BUPIV 2 MCG/0.125% 250 ML EP PRN (22:52)
[2019-06-04] MEDS ORDERED: NALOXONE 0.4 MG/ML VIAL IVP PRN ×2 (22:52→22:58)
[2019-06-04] MEDS ORDERED: METOCLOPRAMIDE 10 MG/2 ML VIAL IVP PRN ×2 (22:52→22:58)
[2019-06-04] MEDS ORDERED: NALBUPHINE 10 MG/ML AMP IVP PRN (22:58)
[2019-06-04] MEDS ORDERED: OXYTOCIN/DEXTROSE 5 % 30 UNIT/500 ML BAG IV SCH (23:00)
[2019-06-05] MEDS: ACETAMINOPHEN 500 MG TABLET PO PRN ×4 (00:19→23:59)
[2019-06-05] MEDS: LACTATED RINGERS 1,000 ML IV SCH (00:21)
[2019-06-05] MEDS ORDERED: SODIUM CHLORIDE FLUSH 0.9% 10 ML SYRINGE IVP SCH (01:00)
[2019-06-05] MEDS: NALBUPHINE 10 MG/ML AMP IVP PRN ×2 (02:42→03:20)
[2019-06-05] MEDS ORDERED: WITCH HAZEL/GLYCERIN 1 PAD TOP PRN (03:38)
[2019-06-05] MEDS ORDERED: HYDROCORTISONE 1% CREAM 28 GM TUBE PR PRN (03:38)
[2019-06-05] MEDS ORDERED: OXYTOCIN/DEXTROSE 5 % 30 UNIT/500 ML BAG IV PRN (03:40)
--- NOTE | 2019-06-05 03:55 | DELIVERY NOTE ---
Delivery Note - Labor Labor: positive: Augmented by oxytocin - Delivery Method Delivery Method: positive: Spontaneous vaginal delivery - Presentation Presentation: positive: Vertex, CARLOS - right occiput anterior - Nuchal Cord Nuchal Cord: positive: None - Amniotic Fluid Description Amniotic Fluid Description: positive: Clear - Episiotomy Type Episiotomy Type: positive: None - Laceration Laceration: positive: None - Delivery Outcome Delivery Outcome: positive: Livebirth - : positive: Placed in direct skin contact with mother, Bulb syringe, Stimulated, Warmed, Patton used, Warmer used sex: positive: Female - Cord Cord: positive: 3 vessels - Placenta Placenta: positive: Intact, Spontaneous - Estimated Blood Loss Estimated Blood Loss (in cc): 250 - Post Delivery Events Post Delivery Events: positive: No post delivery events - Delivery Comments (Free Text/Narrative) Delivery Comments (Free Text/Narrative): This 24yo @ 37.0wks gestation by LMP c/w first trimester ultrasound presented at approximately 1950 with c/o leakage of clear vaginal fluid. Upon examination she was noted to have grossly ruptured membranes with clear fluid. Cervix was 3/75/-3, soft, vertex. FHR pattern demonstrated Category I pattern. Epidural placed per maternal request. Patient progressed to c/c/+1 @ 0251. Normal of viable female . No nuchal cord. The was placed on maternal abdomen, stimulated, dried, and placed skin to skin. Bulb syringe was used and blow by O2 administered. Pitocin administered via IV for hemostasis. T he umbilical cord was allowed to stop pulsating at which time it was doubly clamped by CNM and cut by mother of patient. Cord blood was obtained. 3VC. Infant demonstrated lack of respiratory effort and was brought to warmer for CPAP and monitoring. Well Tender called to evaluate . 's 7/8 at 1 and 5 min respectively. EBL 250mL. Uterine fundus firm and there is no excessive bleeding. The perineum, vagina, and cervix were inspected and found to be intact. Both mother and baby were left in stable condition.
[2019-06-05] MEDS ORDERED: CABERGOLINE 0.5 MG TABLET PO ONE (08:00)
[2019-06-05] MEDS: IBUPROFEN 800 MG TABLET PO SCH ×3 (08:10→19:43)
[2019-06-05] MEDS: SIMETHICONE CHEW 80 MG TABLET PO SCH (21:33)
[2019-06-06] MEDS: IBUPROFEN 800 MG TABLET PO SCH ×2 (01:27→08:41)
[2019-06-06 07:23] LABS: BASOPHILS % (AUTO) 0.4 %; EOSINOPHILS # (AUTO) 0.2 10^3/uL (0.0-0.7); HGB - HEMOGLOBIN 11.3 g/dL (12.0-16.0); LYMPHOCYTES # (AUTO) 2.5 10^3/uL (1.5-3.5); LYMPHOCYTES % (AUTO) 31.2 %; MEAN CORPUSCULAR HGB CONC 34.2 g/dL (32.0-36.0); MEAN CORPUSCULAR VOLUME 93.5 fL (81.0-99.0); MEAN PLATELET VOLUME 9.1 fL (7.9-10.8); MONOCYTES # (AUTO) 0.7 10^3/uL (0.0-1.0); MONOCYTES % (AUTO) 8.4 %; NEUTROPHILS # (AUTO) 4.7 10^3/uL (1.5-6.6); NEUTROPHILS % (AUTO) 57.6 %; PLT - PLATELET COUNT 154 10^3/uL (130-450); RED BLOOD COUNT 3.53 10^6/uL (4.20-5.40); RED CELL DISTRIBUTION WIDTH 12.7 % (12.0-15.0); WHITE BLOOD COUNT 8.1 x10^3/uL (4.8-10.8)
[2019-06-06] MEDS: ACETAMINOPHEN 500 MG TABLET PO PRN (07:34)
[2019-06-06 07:35] LABS: CREATININE 0.7 mg/dL (0.4-1.0); URIC ACID 3.8 mg/dL (2.6-7.2)
[2019-06-06] MEDS: AZITHROMYCIN 250 MG TABLET PO SCH (08:41)
[2019-06-06] MEDS: SIMETHICONE CHEW 80 MG TABLET PO SCH (08:41)
--- NOTE | 2019-06-06 09:41 | Discharge Plan ---
Discharge Plan Problem Reviewed?: Yes Disposition: Home, Self Care Condition: Good Diet: Regular Activity Restrictions: No Restrictions Shower Restrictions: No Driving Restrictions: No Weight Bearing: Full Weight No Smoking: If you smoke, Please STOP! Call for help. Follow-up with: Shireen Leonard CNM, ARNP [Provider Admit Priv/Credential] -
--- NOTE | 2019-06-06 09:46 | PROVIDER PROGRESS NOTE ---
Subjective - Subjective Subjective: FINAL PROGRESS NOTE: S: Bonding well with baby. Bottle feeding without difficulty. She states she will be glad to go home today. Bleeding decreased and is light. Pain well controlled with ibuprofen and tylenol. Mood is good. O: BP 137/67, T 36.9, RR18, HR 63 Heart RRR w/o M/G/R, Lungs CTAB, abdomen soft and nontender with fundus firm at U-1, biltaral LE's no edema. A: 24yo -->P2 PPD#1 s/p TSVD of viable female infant Bottle feeding Perineum intact P: Reviewed self care and warning s/sx and when to present. Planning transdermal contraceptive patch for contraception - will initiate after 21 days Cabergoline Rx hand written and provided to pt for cessation of milk production Advised continuation of tylenol and ibuprofen PO PRN pain F/u for 3 week pp visit or sooner PRN. Pt verbalized understanding and agrees to above plan. She denies further questions or concerns at this time. Objective - Vital Signs/Intake & Output Vital Signs: Vital Signs x48h Temp Pulse Resp BP Pulse Ox 06/06/19 07:49 36.9 C 63 18 137/67 H 100 06/06/19 04:02 36.5 C 65 16 125/75 100 Intake & Output: Intake & Output 06/03/19 06/04/19 06/05/19 06/06/19 23:59 23:59 23:59 23:59 Intake Total 270 500 Output Total 1450 Balance 270 -950 - Lab Results Fish Bones: 06/06/19 07:18 06/06/19 07:18 Other Labs: Lab Results x24hrs 06/06/19 06/06/19 06/06/19 Range/Units 07:18 07:18 07:18 WBC 8.1 (4.8-10.8) x10^3/uL RBC 3.53 L (4.20-5.40) 10^6/uL Hgb 11.3 L (12.0-16.0) g/dL Hct 33.0 L (37.0-47.0) % MCV 93.5 (81.0-99.0) fL MCH 32.0 H (27.0-31.0) pg MCHC 34.2 (32.0-36.0) g/dL RDW 12.7 (12.0-15.0) % Plt Count 154 (130-450) 10^3/uL MPV 9.1 (7.9-10.8) fL Neut # (Auto) 4.7 (1.5-6.6) 10^3/uL Lymph # (Auto) 2.5 (1.5-3.5) 10^3/uL [place] # (Auto) 0.7 (0.0-1.0) 10^3/uL Eos # (Auto) 0.2 (0.0-0.7) 10^3/uL Baso # (Auto) 0.0 (0.0-0.1) 10^3/uL Absolute Nucleated RBC 0.00 x10^3/uL Nucleated RBC % 0.0 /100WBC Creatinine 0.7 (0.4-1.0) mg/dL Estimated GFR (MDRD) 104 (>89) Uric Acid 3.8 (2.6-7.2) mg/dL AST 23 (10-42) IU/L Lactate Dehydrogenase 211 (91-225) IU/L
--- NOTE | 2019-06-06 10:04 | DISCHARGE SUMMARY ---
Physician: LILIYA Pathak DATE OF ADMISSION: 06/04/2019 DATE OF DISCHARGE: 06/06/2019 DIAGNOSES ON ADMISSION 1. A 24-year-old G3, P1-0-1-1 at 36.6 weeks' gestation by LMP. 2. Spontaneous rupture of membranes. 3. Group B streptococcus negative. 4. Moderately elevated blood pressures upon arrival with PIH labs within normal limits. 5. Early labor. 6. Positive chlamydia, which was untreated prior to her arrival DIAGNOSES ON DISCHARGE 1. A 23-year-old G2, P2-0-1-2, status post spontaneous vaginal delivery on 06/05/2019. 2. Normal recovery. 3. Bottle feeding. HISTORY OF PRESENT ILLNESS: She is a patient of [facility] who presented on 06/04/2019 with complaints of leakage of clear vaginal fluid. Her cervix was 3 cm dilated, 75% effaced, -3 station, vertex position. She was treated upon arrival for positive chlamydia detected on 05/29/2019 with 1g azithromycin. She had not received prior treatment. She has a history of HSV and had initiated acyclovir at 36 weeks' gestation. There was no evidence of active lesions at delivery. Epidural was placed per maternal request. The patient progressed to spontaneously deliver a viable female on 06/05/2019. scores were 7 and 8 at 1 and 5 minutes respectively. EBL 250 mL The patient's perineum was intact. She has been doing well in her course. She is ambulating and tolerating a regular diet. She is urinating without difficulty and her lochia is normal. Her pain is well controlled with oral medications. She will be discharged home today on day #2 with prescriptions for cabergoline for milk cessation. She has been instructed to continue ibuprofen and Tylenol p.o. p.r.n. pain [id number]. She intends to followup with myself at [facility] in 3 weeks for routine visit. She has been given precautions to call if she has any worsening fevers, chills, abdominal pain, increased bleeding or foul-smelling vaginal lochia. TD: 06/06/2019 09:53 [facility]
[2019-06-06] MEDS ORDERED: CABERGOLINE 0.5 MG TABLET PO ONE (11:00)
[2019-06-06 12:18] VITALS: BP 136/82
--- NOTE | 2019-06-06 13:52 | Labor Flowsheet ---
Labor Flowsheet Datetime Report Generated by CPN: 06/06/2019 13:52 Datetime: 06/06/2019 12:00 VITAL SIGNS NBP Sys/Nae/Mean (mmHg): 136 : 82 : 96 Pulse: 68 LaborFlag: Labor Datetime: 06/05/2019 19:49 SpO2 (%): 99 Datetime: 06/05/2019 06:26 Membranes Ruptured Date/Time: 06/04/2019 19:00 Membranes Rupture Method: Spontaneous Amniotic Fluid Color: Clear Amniotic Fluid Amount: Moderate Amniotic Fluid Odor: None Datetime: 06/05/2019 03:02 STAGE 2 Pushing: Coached on Pushing; Urge to Push Pushing Position: Pushing with Contractions; Pushing Lithotomy Pushing Progress: Descent with Pushing Stage 2 Comments: pushing @ 0301 Datetime: 06/05/2019 03:00 UTERINE ACTIVITY Monitor Mode: External Frequency (min): 2-3 Duration (sec): 60-80 Pattern: Normal: <= 5 Contractions in 10 Minutes Resting Tone (Palpate): Relaxed Pitocin Checklist: At Least 1 Acceleration of 15 bpm x 15 Seconds in 30 Minutes or Adequate Variabi lity; No More than 1 Late Deceleration Occurred in Past 30 Minutes; No More than 2 Variable Decelerat ions > 60 Seconds in Duration and decreasing >60 bpm in 30 minutes; No More than 5 Uterine Contractio ns in 10 Minutes for any 20 Minute Interval; Uterus Palpates Soft between Contractions ASSESSMENT A Monitor Mode: Telemetry FHR Baseline Rate : 145 Variability: Moderate 6-25 bpm Accelerations: 10X10 Decelerations: Early Category: Category I COMMUNICATION Communication: Provider at Bedside Communication Comments: Horacio CNM here Datetime: 06/05/2019 02:51 VAGINAL EXAM Dilatation (cm): 9.5 Effacement (%): 100 Station: 2 Exam by: Cierra Alfaro RN Vaginal Bleeding: Normal Show Cervix, Consistency: Soft Cervix, Position: Anterior Datetime: 06/05/2019 02:30 Quality: Strong Datetime: 06/05/2019 02:27 Temperature (C): 36.8 Datetime: 06/05/2019 01:58 Patient Position/Activity: Left Tilt Datetime: 06/05/2019 01:54 Comments: maternal movement, mom itching Datetime: 06/05/2019 01:11 MEDICATIONS Pitocin (milliunits): Increased to @ 2 Datetime: 06/05/2019 00:00 Contraction Comments: unable to determine ctx pattern at this time PATIENT CARE Oxygen Method: Room Air Datetime: 06/04/2019 23:36 Actions for Decelerations: Side to Side Datetime: 06/04/2019 23:05 Anesthesia Level Check: T11 Datetime: 06/04/2019 22:38 Epidural Procedure: Test Dose Datetime: 06/04/2019 22:35 Anesthesia Comments: lidocaine Datetime: 06/04/2019 22:33 Comfort Measures: Breathing/Relaxation Datetime: 06/04/2019 22:25 PROCEDURE TIME OUT Procedure Verify: Correct Patient Identity; Correct Side and Site are Marked; Accurate Procedure Co nsent Form; Agreement on Procedure to be Done; Correct Patient Position ANESTHESIA Anesthesia Plans: Epidural Epidural Positioning: Sitting Datetime: 06/04/2019 22:23 I/O Interventions: Up to BR Patient Care Comments: void x1, approximately 800ml UO Datetime: 06/04/2019 21:58 Provider Notified (Name): Dr. Negin Datetime: 06/04/2019 21:50 Vaginal Exam Comments: 3-4cm Datetime: 06/04/2019 21:30 MATERNAL ASSESSMENT Level of Consciousness: Fully Conscious Headache: Denies Breath Sounds, Left: Clear and Equal Breath Sounds, Right: Clear and Equal Nausea/Vomiting: Denies RUQ Epigastric Pain: Denies Maternal Comments: headache 7/10 resolved Datetime: 06/04/2019 21:00 Respirations: 16 PAIN Pain Scale: 4 Pain Presence: Intermittent Pain Type: Contraction Pain Location: Abdomen Pain Relief Measures: Comfort Measures Pain Coping: Breathing Through Contractions
== END 2019-06-06 13:00 | disposition home or self-care (01) | DRG 806 ==
LOC: WFO 19:31 → FBP 19:34 → WFO 20:12 → FBP 20:13
PROVIDERS: ADMIT Nurse Practitioner Obstetrics & Gynecology; ATTEND Nurse Practitioner Obstetrics & Gynecology
PROC: 10E0XZZ Delivery of Products of Conception, External Approach (ICD-10-PCS; principal; 2019-06-05)
DX: O98.32 Other infections with a predominantly sexual mode of transmission complicating childbirth (principal); O98.52 Other viral diseases complicating childbirth; Z37.0 Single live birth; O99.324 Drug use complicating childbirth; A56.11 Chlamydial female pelvic inflammatory disease; B00.9 Herpesviral infection, unspecified; F12.90 Cannabis use, unspecified, uncomplicated; R03.0 Elevated blood-pressure reading, without diagnosis of hypertension; Z3A.36 36 weeks gestation of pregnancy; Z79.899 Other long term (current) drug therapy; Z87.891 Personal history of nicotine dependence; Z63.0 Problems in relationship with spouse or partner
CPT/HCPCS: 36415; 82565; 82570; 83615; 84156; 84450; 84550; 85025; 85384; A9270; J1200; J2300; J7120; 99212

== ENCOUNTER 2020-12-06 08:00 | Outpatient (CLI) | payer MEDICAID ==
[2020-12-07 13:56] LABS: ALBUMIN 4.8 g/dL (3.2-5.5); ALBUMIN/GLOBULIN RATIO 1.7 (1.0-2.2); ALKALINE PHOSPHATASE 89 IU/L (42-121); ALT ALANINE AMINOTRANSFERASE 25 IU/L (10-60); AST ASPARTATE AMINOTRANSFERASE 26 IU/L (10-42); BUN - BLOOD UREA NITROGEN 12 mg/dL (6-20); CALCIUM 9.9 mg/dL (8.5-10.3); CARBON DIOXIDE - CO2 25 mmol/L (21-32); CHLORIDE 101 mmol/L (101-111); CHOL/HDL RATIO 1.7 (<4.4); CHOLESTEROL 189 mg/dL; CREATININE 0.7 mg/dL (0.4-1.0); GLUCOSE 94 mg/dL (70-100); HDL CHOLESTEROL 112 mg/dL; LDL CHOLESTEROL,CALCULATED 68 mg/dL; LDL/HDL RATIO 0.6 (<4.4); TOTAL PROTEIN 7.6 g/dL (6.7-8.2); VLDL CHOLESTEROL 9 mg/dL
[2020-12-08 12:21] LABS: HEPATITIS C ANTIBODY NON-REACTIVE (NON-REACTIVE)
[2020-12-08 13:11] LABS: HIV AG/AB 4TH GEN NON-REACTIVE (NON-REACTIVE)
[2020-12-09 14:12] LABS: HSV 2 IGG TYPE SPECIFIC AB 8.14 index
== END 2020-12-06 23:59 ==
LOC: LAB.WCP 08:00
PROVIDERS: ATTEND Nurse Practitioner
DX: Z00.00 Encounter for general adult medical examination without abnormal findings (principal); Z13.220 Encounter for screening for lipoid disorders; Z13.228 Encounter for screening for other metabolic disorders; Z11.3 Encounter for screening for infections with a predominantly sexual mode of transmission
CPT/HCPCS: 36415; 80053; 80061; 83721; 86317; 86695; 86696; 86704; 86803; 87389

== ENCOUNTER 2020-12-07 08:00 | Outpatient (CLI) | payer MEDICAID ==
[2020-12-07 22:43] LABS: TRICHOMONAS VAGINALIS DNA NEGATIVE (NEGATIVE)
== END 2020-12-07 23:59 | disposition home or self-care (01) ==
LOC: LAB.R 08:00
PROVIDERS: ATTEND Family Medicine
DX: Z11.3 Encounter for screening for infections with a predominantly sexual mode of transmission (principal)
CPT/HCPCS: 87491; 87591; 87661

== ENCOUNTER 2021-02-13 07:00 | Outpatient (CLI) | payer MEDICAID ==
[2021-02-13 21:18] LABS: BACTERIAL VAGINOSIS DNA POSITIVE (NEGATIVE); CANDIDA GLABRATA DNA NEGATIVE (NEGATIVE); CANDIDA GROUP DNA NEGATIVE (NEGATIVE); CANDIDA KRUSEI DNA NEGATIVE (NEGATIVE); TRICHOMONAS VAGINALIS DNA NEGATIVE (NEGATIVE)
[2021-02-13 22:30] LABS: CHLAMYDIA TRACHOMATIS DNA NEGATIVE (NEGATIVE); NEISSERIA GONORRHOEAE DNA NEGATIVE (NEGATIVE); TRICHOMONAS VAGINALIS DNA NEGATIVE (NEGATIVE)
== END 2021-02-13 23:59 | disposition home or self-care (01) ==
LOC: LAB.N 07:00
PROVIDERS: ATTEND Physician Assistant Medical
DX: N76.0 Acute vaginitis (principal)
CPT/HCPCS: 87491; 87591; 87661; 87801

== ENCOUNTER 2021-06-09 08:00 | Outpatient (CLI) | payer MEDICAID ==
[2021-06-09 22:08] LABS: BACTERIAL VAGINOSIS DNA NEGATIVE (NEGATIVE); CANDIDA GLABRATA DNA NEGATIVE (NEGATIVE); CANDIDA GROUP DNA POSITIVE (NEGATIVE); CANDIDA KRUSEI DNA NEGATIVE (NEGATIVE); TRICHOMONAS VAGINALIS DNA NEGATIVE (NEGATIVE)
[2021-06-09 22:33] LABS: CHLAMYDIA TRACHOMATIS DNA NEGATIVE (NEGATIVE); NEISSERIA GONORRHOEAE DNA NEGATIVE (NEGATIVE); TRICHOMONAS VAGINALIS DNA NEGATIVE (NEGATIVE)
== END 2021-06-09 23:59 | disposition home or self-care (01) ==
LOC: LAB.N 08:00
PROVIDERS: ATTEND Family Medicine
DX: N89.8 Other specified noninflammatory disorders of vagina (principal)
CPT/HCPCS: 87086; 87491; 87591; 87661; 87801

== ENCOUNTER 2021-06-30 08:00 | Outpatient (CLI) | payer MEDICAID ==
[2021-06-30 21:55] LABS: BACTERIAL VAGINOSIS DNA POSITIVE (NEGATIVE); CANDIDA GLABRATA DNA NEGATIVE (NEGATIVE); CANDIDA GROUP DNA POSITIVE (NEGATIVE); CANDIDA KRUSEI DNA NEGATIVE (NEGATIVE); TRICHOMONAS VAGINALIS DNA NEGATIVE (NEGATIVE)
[2021-06-30 22:47] LABS: CHLAMYDIA TRACHOMATIS DNA NEGATIVE (NEGATIVE); NEISSERIA GONORRHOEAE DNA NEGATIVE (NEGATIVE); TRICHOMONAS VAGINALIS DNA NEGATIVE (NEGATIVE)
== END 2021-06-30 23:59 | disposition home or self-care (01) ==
LOC: LAB.N 08:00
PROVIDERS: ATTEND Nurse Practitioner
DX: N89.8 Other specified noninflammatory disorders of vagina (principal); R30.0 Dysuria
CPT/HCPCS: 87086; 87491; 87591; 87661; 87801

== ENCOUNTER 2021-09-25 08:00 | Outpatient (CLI) | payer MEDICAID ==
[2021-09-25 21:54] LABS: BACTERIAL VAGINOSIS DNA POSITIVE (NEGATIVE); CANDIDA GLABRATA DNA NEGATIVE (NEGATIVE); CANDIDA GROUP DNA POSITIVE (NEGATIVE); CANDIDA KRUSEI DNA NEGATIVE (NEGATIVE); TRICHOMONAS VAGINALIS DNA NEGATIVE (NEGATIVE)
[2021-09-25 22:33] LABS: CHLAMYDIA TRACHOMATIS DNA NEGATIVE (NEGATIVE); NEISSERIA GONORRHOEAE DNA NEGATIVE (NEGATIVE); TRICHOMONAS VAGINALIS DNA NEGATIVE (NEGATIVE)
== END 2021-09-25 08:01 | disposition home or self-care (01) ==
LOC: LAB.N 08:00
PROVIDERS: ATTEND Physician Assistant Medical
DX: N76.0 Acute vaginitis (principal)
CPT/HCPCS: 87491; 87591; 87661; 87801

== ENCOUNTER 2021-11-27 08:00 | Outpatient (CLI) | payer MEDICAID ==
[2021-11-27 23:16] LABS: BACTERIAL VAGINOSIS DNA POSITIVE (NEGATIVE); CANDIDA KRUSEI DNA NEGATIVE (NEGATIVE); TRICHOMONAS VAGINALIS DNA NEGATIVE (NEGATIVE)
[2021-11-27 23:17] LABS: CANDIDA GLABRATA DNA NEGATIVE (NEGATIVE); CANDIDA GROUP DNA NEGATIVE (NEGATIVE)
== END 2021-11-27 23:59 ==
LOC: LAB.N 08:00
PROVIDERS: ATTEND Registered Nurse
DX: N76.0 Acute vaginitis (principal)
CPT/HCPCS: 87661; 87801

== ENCOUNTER 2022-10-22 14:05 | Outpatient (CLI) | payer MEDICAID ==
--- NOTE | 2022-10-22 15:20 | Ultrasound Report ---
PROCEDURE: OB First Trimester w/TV INDICATIONS: POSITIVE TEST OUTSIDE/PRIOR DATING DATA: Last menstrual period (LMP): 09/10/2022. LMP-based estimated date of delivery (CHAKA): 06/17/2023. TECHNIQUE: Real-time scanning was performed of the fetus and maternal pelvic organs, with image documentation. Endovaginal scanning was also performed to better visualize the fetus and maternal ovaries. COMPARISON: None. FINDINGS: Single living intrauterine gestation with mean gestational sac diameter of 1 cm, correspon ding to an estimated gestational age of five weeks five days. There is no pole identified. Yolk sac is noted. Ovaries normal. IMPRESSION: Early intrauterine , estimated gestational age 5 weeks five days. Reviewed by: Nabil Chaidez MD on 10/22/2022 2:19 PM [facility] Approved by: Nabil Chaidez MD on 10/22/2022 2:19 PM [facility] Station ID: [id number]
== END 2022-10-22 14:06 | disposition home or self-care (01) ==
LOC: DI 14:05
PROVIDERS: ATTEND Nurse Practitioner
DX: Z32.01 Encounter for pregnancy test, result positive (principal)

== ENCOUNTER 2023-02-21 22:54 | Outpatient (CLI) | payer MEDICAID | END 2023-02-21 22:55 | disposition EMS.NT | LOC: EMS 22:54 | DX: R07.9 Chest pain, unspecified (principal); F41.9 Anxiety disorder, unspecified ==

== ENCOUNTER 2023-03-21 13:19 | Emergency (ER) | payer MEDICAID ==
--- NOTE | 2023-03-21 14:05 | ED Physician Documentation ---
History of Present Illness - Stated complaint Stated Complaint: BACK PX,COUGH - Chief complaint Chief Complaint: General - Additonal information Additional information: 28-year-old female presents to the emergency department for evaluation of multiple concerns. The first is evaluation of . She thinks her last menstrual period was early to mid February but is unsure. She began having nausea and feeling generally unwell several days ago. She took test and was positive. . She states that she did have 2 to 3 days of vaginal spotting and bleeding that has since resolved. Patient is also concerned that she has bilateral mid back pain with cough. Subjective fevers for the last several days. Productive cough. Some sputum. No hemoptysis. Review of Systems Constitutional: reports: Fever, Chills Nose: reports: Reviewed and negative Cardiac: reports: Reviewed and negative Respiratory: reports: Reviewed and negative GI: reports: Nausea, Vomiting : reports: Vaginal bleeding, Now EGA. 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 : None HEENT: None Psych: Anxiety Musculoskeletal: None Derm: None Other Past Medical History: placenta previa - Past Surgical History Past Surgical History: No - Present Medications Home Medications: Ambulatory Orders Medication Instructions Recorded Confirmed cephALEXin [Keflex] 500 mg PO BID #14 cap 03/21/23 - Allergies Allergies/Adverse Reactions: Allergies Allergy/AdvReac Type Severity Reaction Status Date / Time No Known Drug Allergies Allergy Verified 07/31/18 19:20 - Social History Does the pt smoke?: Yes Smoking Status: Current every day smoker Does the pt drink ETOH?: No Does the pt have substance abuse?: No - Immunizations Immunizations are current?: Yes - POLST Patient has POLST: No PD ED PE NORMAL - General General: Alert and oriented X 3, No acute distress - HEENT HEENT: Atraumatic - Neck Neck: Supple, no meningeal sign, No adenopathy - Cardiac Cardiac: RRR, No murmur - Respiratory Respiratory: No respiratory distress, Clear bilaterally - Abdomen Abdomen: Normal bowel sounds, Soft. No: Non tender (Mild tenderness in the suprapubic region. No guarding or rebound. Nonlateralizing) - Back Back: No: No CVA TTP (Mild CVA tenderness with percussion bilaterally) - Derm Derm: Warm and dry - Neuro Neuro: Alert and oriented X 3 Eye Opening: Spontaneous Motor: Obeys Commands Verbal: Oriented GCS Score: 15 Results - Vitals Vitals: Vital Signs - 24 hr 03/21/23 13:24 Temperature 36.4 C L Heart Rate 110 H Respiratory 20 Rate Blood Pressure 143/83 H O2 Saturation 97 Oxygen O2 Source Room air - Labs Labs: Laboratory Tests 03/21/23 03/21/23 03/21/23 13:53 14:09 14:09 WBC 7.6 RBC 4.08 L Hgb 11.9 L Hct 36.0 L MCV 88.2 MCH 29.2 MCHC 33.1 RDW 11.6 L Plt Count 218 MPV 8.4 Neut # (Auto) 6.0 Lymph # (Auto) 1.0 L [place] # (Auto) 0.6 Eos # (Auto) 0.0 Baso # (Auto) 0.0 Absolute Nucleated RBC 0.00 Nucleated RBC % 0.0 Sodium 136 Potassium 3.4 L Chloride 101 Carbon Dioxide 23 Anion Gap 12.0 BUN 5 L Creatinine 0.5 Estimated GFR (MDRD) 148 Glucose 151 H Calcium 8.7 Total Bilirubin 0.6 AST 22 ALT 19 Alkaline Phosphatase 91 Total Protein 7.3 Albumin 3.5 Globulin 3.8 Albumin/Globulin Ratio 0.9 L Lipase 27 HCG, Quant Urine Color LIGHT YELLOW Urine Clarity HAZY Urine pH 6.5 Ur Specific [place] <=1.005 Urine Protein NEGATIVE Urine Glucose (UA) NEGATIVE Urine Ketones NEGATIVE Urine Occult Blood TRACE-LYSE Urine Nitrite NEGATIVE Urine Bilirubin NEGATIVE Urine Urobilinogen 0.2 (NORMAL) Ur Leukocyte Esterase SMALL H Urine RBC 0-5 Urine WBC 0-3 Ur Squamous Epith Cells FEW Squamous Urine Bacteria Few Ur Microscopic Review INDICATED Urine Culture Comments INDICATED 03/21/23 14:09 WBC RBC Hgb Hct MCV MCH MCHC RDW Plt Count MPV Neut # (Auto) Lymph # (Auto) [place] # (Auto) Eos # (Auto) Baso # (Auto) Absolute Nucleated RBC Nucleated RBC % Sodium Potassium Chloride Carbon Dioxide Anion Gap BUN Creatinine Estimated GFR (MDRD) Glucose Calcium Total Bilirubin AST ALT Alkaline Phosphatase Total Protein Albumin Globulin Albumin/Globulin Ratio Lipase HCG, Quant 190.76 Urine Color Urine Clarity Urine pH Ur Specific [place] Urine Protein Urine Glucose (UA) Urine Ketones Urine Occult Blood Urine Nitrite Urine Bilirubin Urine Urobilinogen Ur Leukocyte Esterase Urine RBC Urine WBC Ur Squamous Epith Cells Urine Bacteria Ur Microscopic Review Urine Culture Comments - Rads (name of study) cxr Relevant Findings:: EMP independent interpretation of test (No acute cardiopulmonary process) PD Medical Decision Making - ED course Complexity details: reviewed results, re-evaluated patient, considered differential, d/w patient ED course: 28-year-old female presents to the emergency department for a number of concerns. #1 incidentally she is . LMP was sometime between February 25 and March 07. About 3 days ago she had brief episode of vaginal spotting. She is historically O+. On exam she had a little midline suprapubic tenderness but was nonlocalizing. We did obtain an hCG here in the emergency department which showed a quant of only 190. Patient was concerned about the vaginal spotting and bleeding and an ultrasound was completed. No findings of IUP were seen. There was a hypervascular cystic mass on the left kidney. I discussed with the patient that this may represent a hemorrhagic cyst and was less likely an early ectopic. She will follow closely with OB. The usual emergent return precautions for concerns of vaginal bleeding and ectopic were d iscussed. She had also reported cough and bilateral flank/CVA pain. Chest x-ray showed no findings of pneumonia, pneumothorax or pleural effusion. Her cardiopulmonary auscultation was unremarkable. Room air sats were normal. I did obtain CBC and electrolytes and per my interpretation no acute worrisome findings. Her urinalysis showed mild amount of bacteria. Though she clinically does not have symptoms of a urinary tract infection given desired we will treat with Keflex for 7 days. Patient is discharged home in stable condition with usual emergent return precautions for worsening symptoms discussed Departure - Departure Disposition: 01 Home, Self Care Clinical Impression: Positive test, Cyst of left ovary, Bacteria in urine Cough Qualifiers: Cough type: acute Qualified Code(s): R05.1 - Acute cough Back pain Qualifiers: Back pain location: thoracic back pain Chronicity: acute Back pain laterality: bilateral Qualified Code(s): M54.6 - Pain in thoracic spine Condition: Stable Record reviewed to determine appropriate education?: Yes Follow-Up: Stefany Siddiqui ARNP [Provider Admit Priv/Credential] - Prescriptions: cephALEXin [Keflex] 500 mg PO BID #14 cap Comments: You came to the emergency department today because for several days you have been having cough and pain in your mid thoracic back behind your kidneys. You also reported that you have recently had a positive home test and your last menstrual period was sometime between February 25 and March 07. Your chest x-ray today shows no findings of pneumonia, pneumothorax or pleural effusion. Your CBC and electrolytes were all essentially normal. Your urine has a little bit of bacteria in it. We we will typically always treat this in women but if you were not we would not consider this to be a sign of infection. Prescription for Keflex and antibiotic typically considered safe in has been sent to the [facility] in [place]. Your hormone level today was 190. We are typically unable to see signs of intrauterine unless the hormone level is around 1800. But because you did report some vaginal spotting several days ago we did do an ultrasound. Again the ultrasound could not confirm an intrauterine though we know that your at least chemically based on your hormone level. The ultrasound did show a likely hemorrhagic cyst on the left ovary. However, an ectopic is not entirely ruled out at this time. It is important that you follow closely with your OB providers. If you find over the course of the weekend that you are having any worsening pain, fevers uncontrolled vomiting we do need to see you immediately again in the emergency department.
[2023-03-21 14:15] LABS: BASOPHILS % (AUTO) 0.1 %; EOSINOPHILS % (AUTO) 0.4 %; HGB - HEMOGLOBIN 11.9 g/dL (12.0-16.0); LYMPHOCYTES % (AUTO) 12.7 %; MEAN CORPUSCULAR HEMOGLOBIN 29.2 pg (27.0-31.0); MEAN CORPUSCULAR HGB CONC 33.1 g/dL (32.0-36.0); MEAN CORPUSCULAR VOLUME 88.2 fL (81.0-99.0); MEAN PLATELET VOLUME 8.4 fL (7.9-10.8); MONOCYTES # (AUTO) 0.6 10^3/uL (0.0-1.0); MONOCYTES % (AUTO) 8.3 %; NEUTROPHILS % (AUTO) 78.2 %; PLT - PLATELET COUNT 218 10^3/uL (130-450); RED BLOOD COUNT 4.08 10^6/uL (4.20-5.40); RED CELL DISTRIBUTION WIDTH 11.6 % (12.0-15.0); WHITE BLOOD COUNT 7.6 x10^3/uL (4.8-10.8)
[2023-03-21 14:27] LABS: ALBUMIN 3.5 g/dL (3.2-5.5); ALBUMIN/GLOBULIN RATIO 0.9 (1.0-2.2); BILIRUBIN,TOTAL 0.6 mg/dL (0.2-1.0); CALCIUM 8.7 mg/dL (8.5-10.3); CREATININE 0.5 mg/dL (0.4-1.0); POTASSIUM 3.4 mmol/L (3.5-5.0); TOTAL PROTEIN 7.3 g/dL (6.7-8.2)
[2023-03-21 14:34] LABS: BILIRUBIN,URINE NEGATIVE (NEGATIVE); GLUCOSE, URINE (UA) NEGATIVE (NEGATIVE); KETONES,URINE (UA) NEGATIVE (NEGATIVE); LEUKOCYTE ESTERASE, URINE SMALL (NEGATIVE); NITRITE,URINE NEGATIVE (NEGATIVE); OCCULT BLOOD,URINE TRACE-LYSE (NEGATIVE); PH,URINE 6.5 PH (5.0-7.5); PROTEIN,URINE NEGATIVE (NEGATIVE); UROBILINOGEN,URINE 0.2 (NORMAL) E.U./dL (NORMAL)
--- NOTE | 2023-03-21 14:41 | XRAY Report ---
PROCEDURE: Chest 1 View X-Ray INDICATIONS: chest pain TECHNIQUE: One view of the chest was acquired. COMPARISON: None. FINDINGS: Surgical changes and devices: None. Lungs and pleura: No pleural effusions or pneumothorax. Lungs are clear. Mediastinum: Mediastinal contours appear normal. Heart size is normal. Bones and chest wall: No suspicious bony lesions. Overlying soft tissues appear unremarkable. IMPRESSION: No acute cardiopulmonary process. Reviewed by: Addy Beltran on 03/21/2023 2:39 PM PDT Approved by: Addy Beltran on 03/21/2023 2:39 PM PDT Station ID: [id number]
[2023-03-21 14:44] LABS: BACTERIA,URINE Few /HPF (None Seen); CLARITY,URINE HAZY (CLEAR); RBC,URINE 0-5 /HPF (0-5); SQUAMOUS EPITHELIAL CELL,UR FEW Squamous (<= Few); WBC,URINE 0-3 /HPF (0-5)
[2023-03-21 15:31] VITALS: BP 140/97
--- NOTE | 2023-03-21 16:06 | Ultrasound Report ---
PROCEDURE: OB Transvaginal INDICATIONS: vaginal spotting OUTSIDE/PRIOR DATING DATA: Last menstrual period (LMP): Unknown. LMP-based estimated date of delivery (CHAKA): Unknown. First dating scan (date and location): Today's exam. Estimated date of delivery (CHAKA) from first dating scan: Not applicable. TECHNIQUE: Real-time scanning was performed of the fetus, with image documentation. Endovaginal scanning: Was performed. COMPARISON: None. FINDINGS: No intrauterine gestational visualized. Right ovary measures 3.0 x 1.2 x 2.4 cm, volume of 4.7 mm. Left ovary measures 4.4 x 2.9 x 2.9 cm, vo lume of 19 mL. There is a solid-appearing lesion within the left ovary measuring 3.5 x 3.1 x 2.5 cm. IMPRESSION: of unknown location, given no visualized intrauterine gestational sac or adnexal mass. Diff erential includes early gestational , ectopic or miscarriage. Trend beta hCG and s onographic follow up as necessary. Solid appearing lesion within the left ovary measuring 3.5 x 3.1 x 2.5 cm. Given ovarian origin, find ings likely do not represent an ectopic at this time. Reviewed by: Addy Beltran on 03/21/2023 4:05 PM PDT Approved by: Addy Beltran on 03/21/2023 4:05 PM PDT Station ID: [id number]
== END 2023-03-21 15:30 | disposition home or self-care (01) ==
LOC: ED 13:19
DX: O26.859 Spotting complicating pregnancy, unspecified trimester (principal); O99.891 Other specified diseases and conditions complicating pregnancy; R11.0 Nausea; R82.71 Bacteriuria; R05.1 Acute cough; M54.6 Pain in thoracic spine; O99.330 Smoking (tobacco) complicating pregnancy, unspecified trimester; O34.80 Maternal care for other abnormalities of pelvic organs, unspecified trimester; N83.202 Unspecified ovarian cyst, left side; Z3A.00 Weeks of gestation of pregnancy not specified
CPT/HCPCS: 36415; 80053; 81001; 81003; 83690; 84702; 85025; 87077; 87086; 87181; 99284

== ENCOUNTER 2023-04-19 16:30 | Outpatient (CLI) | payer MEDICAID ==
--- NOTE | 2023-04-20 08:59 | Ultrasound Report ---
PROCEDURE: OB First Trimester w/TV INDICATIONS: SUPERVISION OF OUTSIDE/PRIOR DATING DATA: Last menstrual period (LMP): Unknown. LMP-based estimated date of delivery (CHAKA): 11/26/2023. First dating scan (date and location): 04/19/2023. Estimated date of delivery (CHAKA) from first dating scan: 11/26/2023. The below data below was generated using the ultrasound CHAKA of 11/26/2023 TECHNIQUE: Real-time scanning was performed of the fetus and maternal pelvic organs, with image documentation. Endovaginal scanning was also performed to better visualize the fetus and maternal ovaries. COMPARISON: 03/21/2023 FINDINGS: Embryo: Mean gestational sac diameter 3.8 cm corresponding with 9 weeks 1 day. [place]-rump length 1.9 cm corresponding with 8 weeks 3 days. Heart rate: 167 The cervix is closed. A subchorionic bleed measures 2.2 x 1.1 x 1.0 cm. Measurement variability in dating: +/- 4 weeks by LMP, +/- 7 days by mean sac diameter (use before 6 weeks gestation if crown-rump length not able to be measured), +/- 5 days by crown-rump length (6-12 weeks gestation). Maternal organs: Ovaries demonstrate 2 cysts on the left measuring 1.9 cm and 1.7 cm.. IMPRESSION: 1. Subchorionic bleed measuring 2.2 x 1.1 x 1.0 cm. 2. Live single intrauterine measuring 8 weeks 3 days by crown-rump length. Reviewed by: Mike Sanchez on 04/20/2023 8:58 AM PDT Approved by: Mike Sanchez on 04/20/2023 8:58 AM PDT Station ID: [id number]
== END 2023-04-19 16:31 | disposition home or self-care (01) ==
LOC: DI 16:30
PROVIDERS: ATTEND Nurse Practitioner
DX: O20.8 Other hemorrhage in early pregnancy (principal); Z3A.08 8 weeks gestation of pregnancy

== ENCOUNTER 2023-05-10 08:00 | Outpatient (CLI) | payer MEDICAID ==
[2023-05-10 20:30] LABS: CHLAMYDIA TRACHOMATIS DNA NEGATIVE (NEGATIVE); NEISSERIA GONORRHOEAE DNA NEGATIVE (NEGATIVE); TRICHOMONAS VAGINALIS DNA NEGATIVE (NEGATIVE)
== END 2023-05-10 23:59 | disposition home or self-care (01) ==
LOC: LAB.WC 08:00
PROVIDERS: ATTEND Obstetrics & Gynecology
DX: Z11.3 Encounter for screening for infections with a predominantly sexual mode of transmission (principal)
CPT/HCPCS: 87491; 87591; 87661

== ENCOUNTER 2023-06-11 10:05 | Outpatient (CLI) | payer MEDICAID | END 2023-06-11 10:06 | disposition home or self-care (01) | LOC: LAB.N 10:05 → LAB 10:06 | PROVIDERS: ATTEND Obstetrics & Gynecology | DX: Z53.9 Procedure and treatment not carried out, unspecified reason (principal) ==

== ENCOUNTER 2023-07-06 22:00 | Emergency (ER) | payer MEDICAID ==
[2023-07-06 22:31] LABS: BASOPHILS % (AUTO) 0.2 %; EOSINOPHILS # (AUTO) 0.1 10^3/uL (0.0-0.7); EOSINOPHILS % (AUTO) 0.9 %; HCT - HEMATOCRIT 32.3 % (37.0-47.0); LYMPHOCYTES # (AUTO) 1.1 10^3/uL (1.5-3.5); LYMPHOCYTES % (AUTO) 12.4 %; MEAN CORPUSCULAR HEMOGLOBIN 29.8 pg (27.0-31.0); MEAN CORPUSCULAR HGB CONC 34.1 g/dL (32.0-36.0); MEAN CORPUSCULAR VOLUME 87.5 fL (81.0-99.0); MEAN PLATELET VOLUME 8.9 fL (7.9-10.8); MONOCYTES # (AUTO) 0.3 10^3/uL (0.0-1.0); MONOCYTES % (AUTO) 3.4 %; NEUTROPHILS # (AUTO) 7.4 10^3/uL (1.5-6.6); NEUTROPHILS % (AUTO) 82.9 %; PLT - PLATELET COUNT 229 10^3/uL (130-450); RED BLOOD COUNT 3.69 10^6/uL (4.20-5.40); RED CELL DISTRIBUTION WIDTH 12.1 % (12.0-15.0); WHITE BLOOD COUNT 8.9 x10^3/uL (4.8-10.8)
[2023-07-06 22:44] LABS: ALBUMIN 3.7 g/dL (3.2-5.5); ALBUMIN/GLOBULIN RATIO 1.1 (1.0-2.2); BILIRUBIN,TOTAL 0.5 mg/dL (0.2-1.0); CALCIUM 8.4 mg/dL (8.5-10.3); CREATININE 0.6 mg/dL (0.4-1.0); POTASSIUM 3.1 mmol/L (3.5-5.0); TOTAL PROTEIN 7.2 g/dL (6.7-8.2)
[2023-07-06] MEDS ORDERED: ONDANSETRON 4 MG/2 ML VIAL IVP STA (23:02)
--- NOTE | 2023-07-06 23:08 | ED Physician Documentation ---
PD HPI NVD - Stated complaint Stated Complaint: CRAMPING,GI,NV - Chief complaint Chief Complaint: Abd Pain - History obtained from History obtained from: Patient - Additonal information Additional information: HPI from patient. Patient is 19 weeks . She has already had ultrasound in this confirming IUP. Patient complains of nausea and vomiting, lightheadedness with standing, and cramping, generalized abdominal pain. The symptoms started a few days ago. Patient has ondansetron at home and took a dose of this prior to coming to the emergency department; this did not result in improvement in her nausea and vomiting which is her chief complaint. When symptoms first developed 3 days ago, she also was having diarrhea and took imodium although now she feels she might be constipated. Denies vaginal bleeding, denies decreased movement. Review of Systems Constitutional: denies: Fever GI: reports: Abdominal Pain, Nausea, Vomiting : reports: Frequency. 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 HEENT: None Psych: Anxiety Musculoskeletal: None Derm: None - Past Surgical History Past Surgical History: No - Present Medications Home Medications: Ambulatory Orders Medication Instructions Recorded Confirmed cephALEXin [Keflex] 500 mg PO BID #14 cap 03/21/23 - Allergies Allergies/Adverse Reactions: Allergies Allergy/AdvReac Type Severity Reaction Status Date / Time No Known Drug Allergies Allergy Verified 07/06/23 22:11 - Social History Does the pt smoke?: Yes Smoking Status: Current every day smoker Does the pt drink ETOH?: No Does the pt have substance abuse?: No - Immunizations Immunizations are current?: Yes - POLST Patient has POLST: No PD ED PE NORMAL - Vitals Vital signs reviewed: Yes - General General: Alert and oriented X 3, No acute distress, Well developed/nourished - HEENT HEENT: Other (tacky/pasty mucous membranes) - Neck Neck: Supple, no meningeal sign - Cardiac Cardiac: RRR, No murmur - Respiratory Respiratory: No respiratory distress, Clear bilaterally - Abdomen Abdomen: Soft PD ED PE EXPANDED - Abdomen Abdomen: Decreased BS, Tender to palpation (mild TTP which is predominantly left-sided (left upper and left lower quadrants) with lesser degree of RLQ tenderness. no rebound nor guarding) Results - Vitals Vitals: Vital Signs - 24 hr 07/06/23 07/07/23 22:04 01:23 Temperature 37.2 C Heart Rate 78 67 Respiratory 16 16 Rate Blood Pressure 128/68 124/73 O2 Saturation 100 97 Oxygen O2 Source Room air - Labs Labs: Laboratory Tests 07/06/23 07/06/23 07/06/23 22:25 22:25 23:03 WBC 8.9 RBC 3.69 L Hgb 11.0 L Hct 32.3 L MCV 87.5 MCH 29.8 MCHC 34.1 RDW 12.1 Plt Count 229 MPV 8.9 Neut # (Auto) 7.4 H Lymph # (Auto) 1.1 L [place] # (Auto) 0.3 Eos # (Auto) 0.1 Baso # (Auto) 0.0 Absolute Nucleated RBC 0.00 Nucleated RBC % 0.0 Sodium 135 Potassium 3.1 L Chloride 103 Carbon Dioxide 22 Anion Gap 10.0 BUN 5 L Creatinine 0.6 Estimated GFR (MDRD) 120 Glucose 121 H Calcium 8.4 L Total Bilirubin 0.5 AST 19 ALT 20 Alkaline Phosphatase 94 Total Protein 7.2 Albumin 3.7 Globulin 3.5 Albumin/Globulin Ratio 1.1 Lipase 24 Urine Color YELLOW Urine Clarity CLEAR Urine pH 8.0 H Ur Specific [place] 1.015 Urine Protein NEGATIVE Urine Glucose (UA) NEGATIVE Urine Ketones >=80 H Urine Occult Blood NEGATIVE Urine Nitrite NEGATIVE Urine Bilirubin NEGATIVE Urine Urobilinogen 0.2 (NORMAL) Ur Leukocyte Esterase SMALL H Urine RBC 0-5 Urine WBC 11-25 H Ur Squamous Epith Cells MANY Squamous H Urine Bacteria Many H Ur Microscopic Review INDICATED Urine Culture Comments NOT INDICATED PD Medical Decision Making - ED course Complexity details: reviewed results, re-evaluated patient, considered differential, d/w patient ED course: No remarkable/diagnostic findings on blood tests. Incidental note is made of mild hypokalemia (potassium 3.1). Urinalysis has 11-25 WBC/hpf, many bacteria but also many squamous cells. Patient is given 1 L normal saline IV, 4mg IV zofran, followed by 10mg IV reglan. She is also given 1 gram IV ofirmev. On reevaluation, results d/w patient. She is asleep , awakens easily to voice. Unfortunately, despite these interventions, she was unable to tolerate PO (ate less than a single saltine cracker and then again vomited). Case d/w Dr. 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 Departure - Departure Disposition: ED Place in Observation Clinical Impression: Vomiting during Condition: Good Discharge Date/Time: 07/07/23 01:59
[2023-07-06 23:14] LABS: BILIRUBIN,URINE NEGATIVE (NEGATIVE); GLUCOSE, URINE (UA) NEGATIVE (NEGATIVE); KETONES,URINE (UA) >=80 mg/dL (NEGATIVE); LEUKOCYTE ESTERASE, URINE SMALL (NEGATIVE); NITRITE,URINE NEGATIVE (NEGATIVE); OCCULT BLOOD,URINE NEGATIVE (NEGATIVE); PROTEIN,URINE NEGATIVE (NEGATIVE); UROBILINOGEN,URINE 0.2 (NORMAL) E.U./dL (NORMAL)
[2023-07-06 23:23] LABS: CLARITY,URINE CLEAR (CLEAR)
[2023-07-06] MEDS ORDERED: METOCLOPRAMIDE 10 MG/2 ML VIAL IVP STA (23:28)
[2023-07-06] MEDS ORDERED: SODIUM CHLORIDE 0.9% 1,000 ML IV STA (23:28)
[2023-07-06] MEDS ORDERED: ACETAMINOPHEN 1,000 MG/100 ML 1,000 MG/100 ML BAG IV ONE (23:28)
[2023-07-06 23:39] LABS: BACTERIA,URINE Many /HPF (None Seen); RBC,URINE 0-5 /HPF (0-5); SQUAMOUS EPITHELIAL CELL,UR MANY Squamous (<= Few)
[2023-07-07] MEDS ORDERED: SODIUM CHLORIDE 0.9% 1,000 ML IV STA (01:18)
[2023-07-07] MEDS ORDERED: LACTATED RINGERS 1,000 ML IV ONE (01:30)
[2023-07-07] MEDS ORDERED: PROMETHAZINE 12.5 MG SUPP PR PRN ×2 (01:30→02:24)
--- NOTE | 2023-07-07 01:46 | HISTORY & PHYSICAL EXAMINATION ---
Admit History - Visit Reason Visit Reason: Other (Gastroenteritis) - : 5 Parity: 2 Risk/History: positive: induced HTN Smoking Status: Current every day smoker - Other Maternal History Other Maternal History: HPI: Patient is a 28-year-old -0-2-2 at 19 weeks 5 days gestation presenting with nausea and vomiting and diarrhea. This is going on for several days. She has tried Zofran and Imodium at home. Diarrhea has subsided, and now she feels somewhat constipated. Nausea vomiting has not stopped much. She does not tolerate keeping anything down p.o. She did have some right lower quadrant tenderness as well as some left-sided pain. She says this did resolve with Tylenol. She does say that both her children had a cough/URI last week, but no contacts with gastroenteritis. She has good movement. Denies loss of fluid. No YOUNG/BV or RUQP. No vaginal bleeding. Denies urinary urgency or dysuria. No CVA tenderness. All other symptoms reviewed and were negative except per HPI. PMH History of gestational hypertension Anxiety depression PSH D&C 2017 OB History -0-2-2 1. 09/27/2015, 38 weeks, preeclampsia 2. 11/26/2016, 8 weeks, D&C 3. 06/05/2019, 37 weeks, , labor 4. 10/25/2022, termination SH Active tobacco user, trying to stop with gum. No drugs or alcohol. Family History Aunt: Ovarian cancer Maternal grandmother: Leukemia Mother: Breast cancer, 30s Allergies No known drug allergies Medications Nicotine gum B6 Zofran Imodium Physical exam: General: Alert, oriented, appears uncomfortable. Head: Normal cephalic atraumatic Eyes: PERRLA, extraocular motions intact. Respiratory: Normal rate of respiration. No accessory muscle use, normal respiratory effort. Clear to auscultation bilaterally. Cardiovascular: Regular rate and rhythm Abdomen: Gravid, nontender, nondistended Back: No CVA tenderness Extremities: Normal range of motion Neuro: Oriented x3. Normal movements Psych: Appropriate mood and affect. Normal judgment and insight Plan 28-year-old -0-2-2 at 19 weeks 5 days gestation with gastroenteritis 1. Gastroenteritis -Plan for monitoring on labor and delivery for antiemetics and IV hydration. -Start with promethazine suppositories as she has recent received metoclopramide and ondansetron. -NPO for now, but can p.o. challenge when she is ready 2. Hypokalemia -will add KCL to IV fluids for repletion 3. 19 weeks gestation -heart tones q shift - HPI Vital Signs Temperature 98.9 F 07/06/23 22:04 Heart Rate 78 07/06/23 22:04 Respiratory Rate 16 07/06/23 22:04 Blood Pressure 128/68 07/06/23 22:04 O2 Saturation 100 07/06/23 22:04 Temperature 98.9 F 07/06/23 22:04 Heart Rate 67 07/07/23 01:23 Respiratory Rate 16 07/07/23 01:23 Blood Pressure 124/73 07/07/23 01:23 O2 Saturation 97 07/07/23 01:23 If not protocol: Oxygen Flow, liters/minute - NST Procedure NST Procedure Start Time 22:55 Meds/Allgy - Home Medications Home Medications: Ambulatory Orders Medication Instructions Recorded Confirmed cephALEXin [Keflex] 500 mg PO BID #14 cap 03/21/23 - Allergies Allergies/Adverse Reactions: Allergies Allergy/AdvReac Type Severity Reaction Status Date / Time No Known Drug Allergies Allergy Verified 07/06/23 22:11 Physical - Abdominal Exam Vital Signs: Temp Pulse Resp BP Pulse Ox O2 Flow Rate 98.9 F 67 16 124/73 97 07/06/23 22:04 07/07/23 01:23 07/07/23 01:23 07/07/23 01:23 07/07/23 01:23 Plan for Labor - Plan For Labor I expect patient to be DC'd or transferred within 96 hours.: Yes
[2023-07-07] MEDS ORDERED: D5.45NS W/20 MEQ KCL 1,000 ML IV SCH (02:00)
[2023-07-07] MEDS ORDERED: METOCLOPRAMIDE 10 MG/2 ML VIAL IVP PRN ×2 (02:23→05:30)
[2023-07-07] MEDS ORDERED: ONDANSETRON 4 MG/2 ML VIAL IVP PRN ×2 (02:24→03:30)
[2023-07-07] MEDS ORDERED: PROMETHAZINE 25 MG SUPP PR PRN (02:40)
[2023-07-07] MEDS: POTASSIUM CHLOR 10 MEQ/100 ML 10 MEQ/100 ML BAG IV SCH ×4 (02:53→06:11)
[2023-07-07] MEDS ORDERED: POTASSIUM CHLOR 10 MEQ/100 ML 10 MEQ/100 ML BAG IV SCH (03:00)
[2023-07-07 03:22] VITALS: O2SAT 100
[2023-07-07 08:47] VITALS: BP 114/65
[2023-07-07 09:30] LABS: CALCIUM 8.2 mg/dL (8.5-10.3); CREATININE 0.5 mg/dL (0.6-1.3); POTASSIUM 3.5 mmol/L (3.5-4.5)
--- NOTE | 2023-07-07 10:44 | DISCHARGE SUMMARY ---
Discharge Summary Admit Date: 07/07/23 Discharge Date: 07/07/23 Discharging Provider: Petar Covarrubias MD Code Status: Attempt Resuscitation Condition at Discharge: Good Discharge Disposition: 01 Home, Self Care - DIAGNOSES Admission Diagnoses: Nausea and vomiting of Gastroenteritis Hypokalemia 19 weeks gestation Discharge Diagnoses with Status of Each Condition: Nausea vomiting of Gastroenteritis Hypokalemia 19 weeks gestation - HPI History of Present Illness: Patient doing much better this morning. Vomiting has resolved. Was able to keep breakfast down. Desires to go home. Physical Exam Constitutional: alert, no acute distress, well hydrated, well developed, well nourished, appropriate dress. Cardiovascular: Regular rate and rhythm. Respiratory: no respiratory distress. Abdomen: nondistended, nontender, no guarding. Psych: affect and mood appropriate, normal interaction, good eye contact. - HOSPITAL COURSE Hospital Course: Patient was admitted for nausea and vomiting of versus gastroenteritis. She had several days of persistent vomiting and diarrhea. She had mild hypokalemia on admission. Due to the inability to keep food down, we brought her in for further fluid hydration and antiemetics. After finding good regimen, she felt much better this morning and was able to keep breakfast down. She was discharged with additional prescription for promethazine suppositories. She has follow-up with her OB provider in 1 to 2 weeks. - ALLERGIES Allergies/Adverse Reactions: Allergies Allergy/AdvReac Type Severity Reaction Status Date / Time No Known Drug Allergies Allergy Verified 07/06/23 22:11 - MEDICATIONS Home Medications: Ambulatory Orders Medication Instructions Recorded Confirmed cephALEXin [Keflex] 500 mg PO BID #14 cap 03/21/23 Promethazine Supp [Phenergan Supp] 25 mg [place] Q8HR PRN #12 supp 07/07/23 - LABS Result Diagrams: 07/06/23 22:25 07/07/23 09:06 - FOLLOW UP Follow Up: With [facility] women[facility] care in 1 to 2 weeks - TIME SPENT Time Spent in Discharge (Minutes): 20
[2023-07-08 06:08] LABS: HBsAG SCREEN Negative (Negative)
[2023-07-08 07:08] LABS: HIV SCREEN 4TH GENERATION Non Reactive (Non Reactive)
[2023-07-08 21:07] LABS: HCV AB Non Reactive (Non Reactive)
[2023-07-09 04:09] LABS: RPR Non Reactive (Non Reactive)
== END 2023-07-07 01:59 | disposition home or self-care (01) ==
LOC: ED 22:00 → FBP 07-07 01:34 → UNDOADMOB 07-07 01:34 → ED 07-07 01:59 → UNDODISOB 07-07 11:00
DX: O99.612 Diseases of the digestive system complicating pregnancy, second trimester (principal); K52.9 Noninfective gastroenteritis and colitis, unspecified; O99.282 Endocrine, nutritional and metabolic diseases complicating pregnancy, second trimester; E87.6 Hypokalemia; O99.332 Smoking (tobacco) complicating pregnancy, second trimester; F17.200 Nicotine dependence, unspecified, uncomplicated; Z3A.19 19 weeks gestation of pregnancy
CPT/HCPCS: 36415; 80048; 80053; 81001; 83690; 85025; 86592; 86762; 86803; 86850; 86900; 86901; 87340; 87389; 96361; 96365; 96366; 96367; 96375; 96376; 99283; 99284; J0131; J2765; J7120; J8498; 81003; 87086

== ENCOUNTER 2023-07-07 01:34 | Outpatient (CLI) | payer MEDICAID | END 2023-07-07 23:59 | disposition home or self-care (01) | LOC: WFO 01:34 | PROVIDERS: ATTEND Obstetrics & Gynecology | DX: Z53.9 Procedure and treatment not carried out, unspecified reason (principal) ==

== ENCOUNTER 2023-07-24 15:52 | Outpatient (CLI) | payer MEDICAID ==
--- NOTE | 2023-07-24 17:02 | Ultrasound Report ---
PROCEDURE: OB 14+ Weeks INDICATIONS: SUPERVISION OF OUTSIDE/PRIOR DATING DATA: Last menstrual period (LMP): Unknown. LMP-based estimated date of delivery (CHAKA): Not applicable. First dating scan (date and location): 04/19/2023. Estimated date of delivery (CHAKA) from first dating scan: 11/26/2023. The below data below was generated using the ultrasound CHAKA of 11/26/2023 TECHNIQUE: Real-time scanning was performed of the fetus, with image documentation and biometric measurements. Endovaginal scanning: Not performed. COMPARISON: 04/19/2023 FINDINGS: General: A single living intrauterine gestation is present. Presentation: Variable Placenta: Placental position is posterior, without previa. Amniotic fluid index: 20 cm, within normal limits for gestational age. heart rate: 148 beats per minute. Maternal cervical canal: 4.8 cm long; normal length is 2.5 cm or more. biometrics: Biparietal diameter: 5.2 cm, 20 weeks Head circumference: 19.5 cm, 21 weeks 5 days Abdominal circumference: 16.5 cm, 21 weeks 4 days Femur length: 3.6 cm, 21 weeks 5 days Estimated gestational age from initial scan: 20 weeks 1 day Composite gestational age from present scan: 21 weeks 3 days Estimated weight and percentile: 442 g, 22nd percentile Measurement variability for biometric dating: +/- 10 days from 12-20 weeks gestation, +/- 2 weeks fro m 20-30 weeks gestation, +/- 3 weeks for 30 weeks gestation or later. Anatomic survey: Neuro: Ventricles are non-dilated at less than 10 mm. Cisterna magna is normal at 3-11 mm. Cerebel lum is normal in size and morphology. Nuchal skin fold: Normal at less than 6 mm between 14-20 weeks gestational age. Face: Not well visualized. Spine: No evidence for spina bifida. Heart: 4-chambered heart is present. Outflow tracts not well visualized. Diaphragm: Diaphragm is intact. Stomach: Left-sided stomach is present. Kidneys: No hydronephrosis. Normal is less than 5 mm in 2nd trimester, less than 7 mm in 3rd trimester. Cord: 3-vessel cord has orthotopic insertion. Bladder: Normal in size. Extremities: Not well visualized. IMPRESSION: Single living intrauterine at 20 weeks 1 day, CHAKA of 11/26/2023. The face, cardiac outflow tracts and extremities are not well visualized. Recommend short-term follow -up. Estimated weight of 442 g, 22nd percentile. Reviewed by: Addy Beltran on 07/24/2023 5:00 PM PDT Approved by: Addy Beltran on 07/24/2023 5:00 PM PDT Station ID: [id number]
== END 2023-07-24 15:53 | disposition home or self-care (01) ==
LOC: DI 15:52
PROVIDERS: ATTEND Obstetrics & Gynecology
DX: Z34.82 Encounter for supervision of other normal pregnancy, second trimester (principal)

== ENCOUNTER 2023-09-13 12:16 | Outpatient (CLI) | payer MEDICAID ==
[2023-09-13 12:31] LABS: HCT - HEMATOCRIT 28.3 % (37.0-47.0); HGB - HEMOGLOBIN 9.8 g/dL (12.0-16.0); MEAN CORPUSCULAR HEMOGLOBIN 30.2 pg (27.0-31.0); MEAN CORPUSCULAR HGB CONC 34.6 g/dL (32.0-36.0); MEAN CORPUSCULAR VOLUME 87.3 fL (81.0-99.0); MEAN PLATELET VOLUME 8.8 fL (7.9-10.8); RED BLOOD COUNT 3.24 10^6/uL (4.20-5.40); RED CELL DISTRIBUTION WIDTH 12.1 % (12.0-15.0); WHITE BLOOD COUNT 7.4 x10^3/uL (4.8-10.8)
[2023-09-13 12:47] LABS: BILIRUBIN,URINE NEGATIVE (NEGATIVE); GLUCOSE, URINE (UA) NEGATIVE (NEGATIVE); KETONES,URINE (UA) NEGATIVE (NEGATIVE); LEUKOCYTE ESTERASE, URINE TRACE (NEGATIVE); NITRITE,URINE NEGATIVE (NEGATIVE); OCCULT BLOOD,URINE NEGATIVE (NEGATIVE); PROTEIN,URINE NEGATIVE (NEGATIVE); UROBILINOGEN,URINE 0.2 (NORMAL) E.U./dL (NORMAL)
[2023-09-13 12:51] LABS: CLARITY,URINE CLEAR (CLEAR)
[2023-09-13 12:59] LABS: RBC,URINE 0-5 /HPF (0-5); WBC,URINE 0-3 /HPF (0-5)
[2023-09-13 13:00] LABS: BACTERIA,URINE Few /HPF (None Seen); SQUAMOUS EPITHELIAL CELL,UR FEW Squamous (<= Few)
[2023-09-13 13:12] LABS: CREATININE,URINE 40.3 mg/dL; PROTEIN/CREATININE RATIO,URINE 0.1 (<=0.2)
== END 2023-09-13 12:17 | disposition home or self-care (01) ==
LOC: LAB 12:16
PROVIDERS: ATTEND Obstetrics & Gynecology
DX: O99.891 Other specified diseases and conditions complicating pregnancy (principal); R10.2 Pelvic and perineal pain; R03.0 Elevated blood-pressure reading, without diagnosis of hypertension
CPT/HCPCS: 36415; 81001; 82570; 84156; 85027; 86787; 86850; 86900; 86901; 87086

== ENCOUNTER 2023-09-24 09:03 | Outpatient (CLI) | payer MEDICAID | END 2023-09-24 09:04 | disposition home or self-care (01) | LOC: LAB.N 09:03 | PROVIDERS: ATTEND Obstetrics & Gynecology | DX: Z34.82 Encounter for supervision of other normal pregnancy, second trimester (principal) | CPT/HCPCS: 36415; 82950 ==

== ENCOUNTER 2023-10-24 16:51 | Outpatient (CLI) | payer MEDICAID ==
--- NOTE | 2023-10-24 18:38 | Ultrasound Report ---
PROCEDURE: OB F/U or Repeat INDICATIONS: UTERINE SIZE DATE DISCREPENCY OUTSIDE/PRIOR DATING DATA: Last menstrual period (LMP): Unknown. LMP-based estimated date of delivery (CHAKA): Unknown. First dating scan (date and location): 04/19/2023. Estimated date of delivery (CHAKA) from first dating scan: 11/26/2023. The below data below was generated using the ultrasound CHAKA of 11/26/2023 TECHNIQUE: Real-time scanning was performed of the fetus, with image documentation and biometric measurements. Endovaginal scanning: Not performed. COMPARISON: Ultrasound 07/24/2023 FINDINGS: General: A single living intrauterine gestation is present. Presentation: Vertex Placenta: Placental position is posterior, without previa. Amniotic fluid index: Vertex cm, within normal limits for gestational age. heart rate: 147 beats per minute. Maternal cervical canal: Not well seen biometrics: Biparietal diameter: 8.2 cm, 33 weeks 0 days, 5.1% Head circumference: 31.1 cm, 34 weeks 5 days, 9.3% Abdominal circumference: 28.8 cm, 32 weeks 6 days, 4.5% Femur length: 6.5 cm, 33 weeks 5 days, 9.3% Estimated gestational age from initial scan: 35 weeks 2 days Composite gestational age from present scan: 33 weeks 4 days Estimated weight and percentile: 2160 g, 7% Measurement variability in biometric dating: +/- 10 days from 12-20 weeks gestation, +/- 2 weeks from 20-30 weeks gestation, +/- 3 weeks at 30 weeks gestation or more. Other: S/D ratios ranging from 2.08 through 2.98. Incidental note of nuchal cord. IMPRESSION: 1.Single live intrauterine consistent with 33 weeks and 4 days. 2.Estimated weight is low within the 7th percentile. Findings are concerning for intrauterine g rowth restriction. 3.Incidental note of nuchal cord. Preliminary findings were given to the on-call provider by the principal technologist. Reviewed by: Rajan Snider MD on 10/24/2023 6:37 PM PST Approved by: Rajan Snider MD on 10/24/2023 6:37 PM PST Station ID: [id number]
== END 2023-10-24 16:52 | disposition home or self-care (01) ==
LOC: DI 16:51
PROVIDERS: ATTEND Obstetrics & Gynecology
DX: O26.843 Uterine size-date discrepancy, third trimester (principal); Z3A.33 33 weeks gestation of pregnancy

== ENCOUNTER 2023-11-06 08:00 | Outpatient (CLI) | payer MEDICAID ==
[2023-11-06 20:59] LABS: BACTERIAL VAGINOSIS DNA NEGATIVE (NEGATIVE); CANDIDA GLABRATA DNA NEGATIVE (NEGATIVE); CANDIDA GROUP DNA POSITIVE (NEGATIVE); CANDIDA KRUSEI DNA NEGATIVE (NEGATIVE); TRICHOMONAS VAGINALIS DNA NEGATIVE (NEGATIVE)
== END 2023-11-06 23:59 | disposition home or self-care (01) ==
LOC: LAB.WC 08:00
PROVIDERS: ATTEND Obstetrics & Gynecology
DX: O99.891 Other specified diseases and conditions complicating pregnancy (principal); N89.8 Other specified noninflammatory disorders of vagina; O09.93 Supervision of high risk pregnancy, unspecified, third trimester
CPT/HCPCS: 81514; 87797

== ENCOUNTER 2023-11-08 18:21 | Outpatient (CLI) | payer MEDICAID ==
--- NOTE | 2023-11-09 08:36 | Ultrasound Report ---
PROCEDURE: OB Biophysical Profile INDICATIONS: IUGR OUTSIDE/PRIOR DATING DATA: Last menstrual period (LMP): Unknown. First dating scan (date and location): 04/19/2023. Estimated date of delivery (CHAKA) from first dating scan: 11/26/2023. TECHNIQUE: Real-time scanning was performed of the fetus, with image documentation BPP performed. Um bilical artery Doppler was performed. COMPARISON: 10/24/2023 FINDINGS: General: A single living intrauterine gestation is present. Presentation: Vertex Placenta: Placental position is posterior, without previa. Amniotic fluid index: 10 cm, within normal limits for gestational age. heart rate: 147 beats per minute. Estimated gestational age from initial scan: 37 weeks and 3 days Biophysical profile: Tone: 2 points. Movement: 2 points. Respiration: 2 points. Largest pocket of fluid: 2 points. Umbilical artery Doppler: SD ratios under 3 IMPRESSION: Living intrauterine gestation at 37 weeks and 3 days. 8 out of 8 BPP. SD ratios within normal limits. Reviewed by: Asher Kenney MD on 11/09/2023 8:34 AM PST Approved by: Asher Kenney MD on 11/09/2023 8:34 AM PST Station ID: [id number]
== END 2023-11-08 18:22 | disposition home or self-care (01) ==
LOC: DI 18:21
PROVIDERS: ATTEND Obstetrics & Gynecology
DX: O36.5993 Maternal care for other known or suspected poor fetal growth, unspecified trimester, fetus 3 (principal); Z3A.37 37 weeks gestation of pregnancy

== ENCOUNTER 2023-11-09 13:05 | Outpatient (CLI) | payer MEDICAID ==
[2023-11-09 13:22] VITALS: BP 129/81
--- NOTE | 2023-11-10 11:18 | PROCEDURE REPORT ---
- HPI Diagnosis/Indication for NST: Intrauterine growth restriction Current EDU 11/26/23 Gestation 37 Weeks and 4 Days 3 Para 2 Vital Signs Temperature 97.9 F 11/09/23 13:16 Heart Rate 90 11/09/23 13:16 Respiratory Rate 17 11/09/23 13:16 Blood Pressure 129/81 H 11/09/23 13:16 Temperature 97.9 F 11/09/23 13:16 Heart Rate 90 11/09/23 13:16 Respiratory Rate 17 11/09/23 13:16 Blood Pressure 129/81 H 11/09/23 13:16 O2 Saturation If not protocol: Oxygen Flow, liters/minute - NST Procedure NST Procedure Start Date 11/09/23 Start Time 13:10 Stop Time 13:43 Vibroacoustic Stimulation Used No Patient States Movement Yes - Results and Plan Findings/Impression: 140 mod do + A cells no D cells reactive Plan: continue scheduled care, precautions and instructions reviewed.
== END 2023-11-09 13:50 | disposition home or self-care (01) ==
LOC: WFO 13:05 → FBP 13:07 → WFO 13:50
PROVIDERS: ATTEND Obstetrics & Gynecology
DX: O36.5930 Maternal care for other known or suspected poor fetal growth, third trimester, not applicable or unspecified (principal); Z3A.37 37 weeks gestation of pregnancy
CPT/HCPCS: 59025

== ENCOUNTER 2023-11-13 06:05 | Inpatient (IN) | payer MEDICAID ==
[2023-11-13] MEDS ORDERED: TRANEXAMIC ACID IN NACL 1,000 MG/100 ML BAG IV PRN (06:23)
[2023-11-13] MEDS ORDERED: ONDANSETRON 4 MG/2 ML VIAL IVP PRN (06:23)
[2023-11-13] MEDS ORDERED: LABETALOL 20 MG/4 ML SYRINGE IVP PRN ×3 (06:23)
[2023-11-13] MEDS ORDERED: NIFEdipine 10 MG CAPSULE PO PRN (06:23)
[2023-11-13] MEDS ORDERED: fentaNYL 100 MCG/2 ML VIAL IVP PRN (06:23)
[2023-11-13] MEDS ORDERED: METHYLERGONOVINE 0.2 MG/ML VIAL IM PRN (06:23)
[2023-11-13] MEDS ORDERED: CARBOPROST TROMETHAMINE 250 MCG/ML AMP IM PRN (06:23)
[2023-11-13] MEDS ORDERED: LACTATED RINGERS 1,000 ML IV PRN (06:23)
[2023-11-13] MEDS ORDERED: OXYTOCIN 10 UNIT/ML VIAL IM PRN (06:23)
[2023-11-13] MEDS ORDERED: miSOPROStoL 200 MCG TABLET BC PRN (06:23)
[2023-11-13] MEDS ORDERED: SODIUM CHLORIDE FLUSH 0.9% 10 ML SYRINGE IVP PRN (06:23)
[2023-11-13] MEDS ORDERED: OXYTOCIN/SODIUM CHLORIDE 500 ML IV PRN (06:23)
[2023-11-13] MEDS ORDERED: lidocaine 1% 20 ML MDV ID PRN (06:23)
[2023-11-13] MEDS ORDERED: miSOPROStoL 200 MCG TABLET PR PRN (06:23)
[2023-11-13] MEDS ORDERED: hydrALAZINE INJ 20 MG/ML VIAL IVP PRN ×2 (06:23)
[2023-11-13] MEDS ORDERED: TERBUTALINE 1 MG/ML VIAL SUBQ PRN (06:23)
[2023-11-13] MEDS ORDERED: LIDOCAINE 2%-EPI 1:100000 20 ML MDV ONE (06:48)
[2023-11-13] MEDS ORDERED: ROPIVACAINE 0.2% 0 MG/0 ML BAG EP ONE (06:48)
[2023-11-13 06:50] LABS: BASOPHILS % (AUTO) 0.3 %; EOSINOPHILS # (AUTO) 0.2 10^3/uL (0.0-0.7); EOSINOPHILS % (AUTO) 1.9 %; HCT - HEMATOCRIT 31.6 % (37.0-47.0); HGB - HEMOGLOBIN 10.6 g/dL (12.0-16.0); LYMPHOCYTES # (AUTO) 1.7 10^3/uL (1.5-3.5); LYMPHOCYTES % (AUTO) 19.1 %; MEAN CORPUSCULAR HEMOGLOBIN 28.2 pg (27.0-31.0); MEAN CORPUSCULAR HGB CONC 33.5 g/dL (32.0-36.0); MEAN PLATELET VOLUME 8.3 fL (7.9-10.8); MONOCYTES # (AUTO) 0.7 10^3/uL (0.0-1.0); NEUTROPHILS # (AUTO) 6.2 10^3/uL (1.5-6.6); NEUTROPHILS % (AUTO) 70.5 %; PLT - PLATELET COUNT 260 10^3/uL (130-450); RED BLOOD COUNT 3.76 10^6/uL (4.20-5.40); WHITE BLOOD COUNT 8.8 x10^3/uL (4.8-10.8)
[2023-11-13 07:00] LABS: ALBUMIN 3.4 g/dL (3.2-5.5); BILIRUBIN,TOTAL 0.4 mg/dL (0.2-1.0); CALCIUM 8.7 mg/dL (8.5-10.3); CREATININE 0.5 mg/dL (0.6-1.3); POTASSIUM 3.4 mmol/L (3.5-4.5); TOTAL PROTEIN 6.9 g/dL (6.4-8.9)
[2023-11-13] MEDS ORDERED: LACTATED RINGERS 1,000 ML IV SCH ×2 (07:00→08:00)
--- NOTE | 2023-11-13 07:09 | HISTORY & PHYSICAL EXAMINATION ---
Admit History - Visit Reason Visit Reason: Contractions - : 5 Parity: 2 Risk/History: positive: Genital herpes Complications This : positive: Other (IUGR) Smoking Status: Current every day smoker - Mother's Labs Mother's Blood Type: positive: O Mother's RH: positive: Positive Rubella Status: positive: Immune - Other Maternal History Other Maternal History: HPI: Patient is a 28-year-old -0-2-2 at 38 weeks 1 day gestation presenting for contractions started on 0300. Now occurring every couple of minutes. She has good movement. Denies loss of fluid. All other symptoms reviewed and were negative except per HPI. Course LMP: unknown CHAKA by LMP:unknown Initial U/S:04/19/23 @ 8w3d CHAKA 11/26/2023 FINAL CHAKA: 11/26/2023 IUGR: Ultrasound at [facility] 10/30/23 showed EFW 2228g, 5 %. Normal Dopplers and fluid. Anticipate IOL 38-39 weeks. History of gestational hypertension: Has stopped aspirin for some time. Likely limited benefit in restarting. start disability from Jul due to high risk - h/o gestational HTN. scared to give - last time was uncomfortable, benadryl + epidural made her itch from head to toe, had to wait to push until clinician arrived, very uncomfortable. hoping for a better . constipation / diarrhea x 2 days -- check on this again in a week. Plans to bottlefeed, as she did with her other pregnancies. HSV: prophylaxis at 36 weeks Pre- Weight: BMI: Blood type O+ Antibody Negative CBC:9.8/28.3 plt 191- BID iron ordered 09/13 RUB: Immune VZV: ordered 08/08- reminded 09/13 HBsAg: Negative HepC- NR RPR/AB-EIA: NR HIV: NR PAP:12/18/2021 NILM HPV+ DUE GC/CT: Negative HSV: Positive. Treated in previous pregnancies. Genetic testing: NIPT ordered after discussion Covid: 1x1 JJ Flu: declines 08/08will get next visit; Declines 08/28, 10/09 RSV: 10/23/23 FAS: Ordered 06/05 Placenta:Posterior Cord: 3vessel DK: 20cm EFW: 442g; 22nd %tile 50gm OGCT: 133 3HR GTT: TDAP: Given 10/09 RSV: Next visit Breast Pump: given 08/28 3rd trimester 09/13- 9.8/28.3 plt 191- po BID iron started GBS: obtained 11/06 RSV given 10/23 Delivery plan: , IOL 39 weeks. Contraception: Likely patch. Had problems with OCPs. PMH Allergic rhinitis History of gestational hypertension Anxiety/depression PSH D&C: 2016 OB History -0-0-2 1. 09/27/2015, 38 weeks, , male, 5 pounds 2 ounces, preeclampsia, IOL 2. 11/26/2016, 8 weeks, termination 3. 719 does 19, 37 weeks, , 5 pounds 4 ounces, labor 4. 10/25/2022, termination SH Stop smoking during , no alcohol or drug use Family History Maternal grandmother: Leukemia Mother: Breast cancer Allergies Monistat: Irritation Medications Acyclovir 400 mg 3 times daily Triamcinolone for rash under breasts Physical exam: General: Alert, oriented, no acute distress Head: Normal cephalic atraumatic Eyes: PERRLA, extraocular motions intact. Respiratory: Normal rate of respiration. No accessory muscle use, normal r espiratory effort. Cardiovascular: Regular rate and rhythm Abdomen: Gravid, nontender, nondistended Extremities: Normal range of motion Neuro: Oriented x3. Normal movements Psych: Appropriate mood and affect. Normal judgment and insight SVE: 10/100/+1 FHT: 150 beats per baseline, moderate variability, accelerations present, no decelerations. Category 1 [place]: 2 to 3 minutes Plan 28-year-old -0-0-2 at 38 weeks gestation admitted for term labor 1. Term labor -Patient progressed quickly for precipitous delivery, see delivery note. 2. 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 IUGR: Most recent ultrasound at [facility] showed EFW of of 20 to 28 g, 5%. - NST Procedure NST Procedure Start Time 13:10 Stop Time 13:43 Meds/Allgy - Home Medications Home Medications: Ambulatory Orders Medication Instructions Recorded Confirmed cephALEXin [Keflex] 500 mg PO BID #14 cap 03/21/23 Promethazine Supp [Phenergan Supp] 25 mg [place] Q8HR PRN #12 supp 07/07/23 - Allergies Allergies/Adverse Reactions: Allergies Allergy/AdvReac Type Severity Reaction Status Date / Time No Known Drug Allergies Allergy Verified 07/06/23 22:11 Plan for Labor - Plan For Labor I expect patient to be DC'd or transferred within 96 hours.: Yes
[2023-11-13] MEDS ORDERED: SIMETHICONE CHEW 80 MG TABLET PO PRN (07:11)
--- NOTE | 2023-11-13 07:11 | DELIVERY NOTE ---
Delivery Note - Labor Labor: positive: Spontaneous - Delivery Method Delivery Method: positive: Spontaneous vaginal delivery - Presentation Presentation: positive: Vertex - Nuchal Cord Nuchal Cord: positive: None - Anesthetic Anesthetic Type: - Amniotic Fluid Description Amniotic Fluid Description: positive: Clear - Laceration Laceration: positive: None - Delivery Outcome Delivery Outcome: positive: Livebirth - [place]: positive: Placed in direct skin contact with mother, Vaughn used sex: positive: Female - Cord Cord: positive: 3 vessels - Placenta Placenta: positive: Intact - Estimated Blood Loss Estimated Blood Loss (in cc): 250 - Post Delivery Events Post Delivery Events: positive: No post delivery events - Delivery Comments (Free Text/Narrative) Delivery Comments (Free Text/Narrative): Preoperative Diagnoses 38 weeks gestation Term labor IUGR History of gestational hypertension Vulvovaginal HSV Postoperative Diagnoses Same Delivery live rodriguez Status post spontaneous vaginal delivery Patient presented at 38 weeks gestation [place] regularly with a category 1 tracing. She was 4 cm and was admitted for active labor. She quickly progressed to complete and had spontaneous rupture of membranes as the delivery team was called. Delivery Summary: Patient was placed in the dorsal lithotomy position. Upon maternal pushing the head was delivered atraumatically followed by the anterior shoulder, posterior shoulder, then the remainder of the 's body. A female infant was delivered with APGARS of 8 at 1 minute and 8 at 5 minutes. The infant was placed on its mother's chest . After the cord finished pulsating, the umbilical cord was clamped times two and cut. The placenta delivered intact with three vessel cord. Placenta was sent to pathology. Thirty units of Pitocin were added to the IV fluid and allowed to run freely. Uterine massage was performed until uterus was deemed firm. Upon inspection of the perineum, vagina and cervix were intact. Uterus again massaged and found to be firm. Needle and sponge counts were correct. Patient was stable and allowed to recover in L&D room. was stable and remained in room with mother. weight is pending at this time.
[2023-11-13] MEDS: IBUPROFEN 600 MG TABLET PO SCH ×3 (07:30→21:03)
[2023-11-13] MEDS: ACETAMINOPHEN 500 MG TABLET PO SCH ×3 (07:30→17:44)
[2023-11-13] MEDS: DOCUSATE SODIUM 100 MG CAPSULE PO PRN ×2 (07:30→21:02)
[2023-11-13] MEDS ORDERED: TRIAMCINOLONE 0.1% OINT 15 GM TUBE TOP SCH (21:00)
[2023-11-14] MEDS: IBUPROFEN 600 MG TABLET PO SCH ×2 (02:40→08:38)
[2023-11-14] MEDS: ACETAMINOPHEN 500 MG TABLET PO SCH (02:41)
--- NOTE | 2023-11-14 07:51 | Discharge Plan ---
Discharge Plan Problem Reviewed?: Yes Disposition: Home, Self Care Condition: Good Diet: Regular Shower Restrictions: No Instruction Topics: Depression No Smoking: If you smoke, Please STOP! Call for help. Follow-up with: Petar Covarrubias MD [Provider Admit Priv/Credential] -
--- NOTE | 2023-11-14 07:52 | DISCHARGE SUMMARY ---
Discharge Summary Admit Date: 11/13/23 Discharge Date: 11/14/23 Condition at Discharge: Good Discharge Disposition: 01 Home, Self Care - DIAGNOSES Admission Diagnoses: 38 weeks gestation IUGR Term labor Discharge Diagnoses with Status of Each Condition: 38 weeks gestation IUGR Term labor Delivery of live rodriguez Status post spontaneous vaginal delivery - HPI History of Present Illness: Subjective Patient reports she is doing well. Lochia appropriate. Denies heavy bleeding. Ambulating. Pelvic and abdominal pain well-controlled. Tolerating oral intake. Diet: Regular. Voiding without difficulty. Passing flatus. Denies BM. Patient is bonding with baby in room Breast feeding going well. Denies feeling lightheaded, dizzy or excessively fatigued. Objective General: Alert, oriented, no apparent distress. Cardiovascular: Regular rate. Regular rhythm. Lungs: No increased work of breathing. Abdomen: Uterus firm. Below umbilicus. No guarding or rebound. Extremities: No pain on palpation. No cords palpated. Distal pulses intact. Temp Pulse Resp BP Pulse Ox O2 Flow Rate 97.3 F L 77 18 117/70 11/14/23 08:37 11/14/23 08:37 11/14/23 08:37 11/14/23 08:37 - HOSPITAL COURSE Hospital Course: Patient was admitted at 38 weeks gestation for term labor. She quickly progressed to complete and had a quick delivery. She had an uneventful vaginal delivery and course and was discharged with her on day 1. weight: 2407 g. - ALLERGIES Allergies/Adverse Reactions: Allergies Allergy/AdvReac Type Severity Reaction Status Date / Time No Known Drug Allergies Allergy Verified 07/06/23 22:11 - MEDICATIONS Home Medications: Ambulatory Orders Medication Instructions Recorded Confirmed cephALEXin [Keflex] 500 mg PO BID #14 cap 03/21/23 Promethazine Supp [Phenergan Supp] 25 mg OR Q8HR PRN #12 supp 07/07/23 - LABS Result Diagrams: 11/13/23 06:32 11/13/23 06:32 - [facility] TIME SPENT Time Spent in Discharge (Minutes): 20
[2023-11-14] MEDS: DOCUSATE SODIUM 100 MG CAPSULE PO PRN (08:38)
[2023-11-14 08:46] VITALS: BP 117/70
--- NOTE | 2023-11-14 15:32 | Labor Flowsheet ---
Labor Flowsheet Datetime Report Generated by CPN: 11/14/2023 15:31 Datetime: 11/14/2023 08:36 VITAL SIGNS NBP Sys/Nae/Mean (mmHg): 117 : 70 : 81 Pulse: 77 Datetime: 11/13/2023 08:58 PAIN Pain Scale: 3 Pain Type: Cramping Datetime: 11/13/2023 08:38 Temperature (C): 36.5 Temperature Route: Oral Datetime: 11/13/2023 07:21 Membranes Ruptured Date/Time: 11/13/2023 06:51 Membranes Rupture Method: Spontaneous Amniotic Fluid Color: Clear Amniotic Fluid Amount: Moderate Amniotic Fluid Odor: Normal Datetime: 11/13/2023 07:04 MEDICATIONS Pitocin (milliunits): Increased to @ 999ml/hr Datetime: 11/13/2023 07:00 Stage of : Recovery Datetime: 11/13/2023 06:59 STAGE 2 Pushing: Coached on Pushing; Urge to Push Pushing Position: Pushing with Contractions; Pushing Lithotomy Pushing Progress: Descent with Pushing; Rectal Bulging; Molding Noted; Caput Noted Datetime: 11/13/2023 06:57 LaborFlag: Labor Datetime: 11/13/2023 06:51 VAGINAL EXAM Dilatation (cm): 10.0 Effacement (%): 100 Station: 1 Exam by: Melanee Rachelle Datetime: 11/13/2023 06:45 PATIENT CARE IV/Blood Work: IV Bolus Given ml @ 250ml@999ml/hr COMMUNICATION Communication: Provider at Bedside Provider Notified (Name): VICE ADMIRAL julianne Datetime: 11/13/2023 06:37 Pain Coping: Requesting Pain Medication or Epidural Datetime: 11/13/2023 06:31 Notification Reason: Status Update; Labor Status; Uterine Activity; Pain; Patient Request Communication Comments: requesting epidural Datetime: 11/13/2023 06:23 UTERINE ACTIVITY Monitor Mode: External Frequency (min): 2-4 Quality: Strong Duration (sec): 50-70 Pattern: Normal: <= 5 Contractions in 10 Minutes Resting Tone (Palpate): Relaxed ASSESSMENT A Monitor Mode: External US FHR Baseline Rate : 150 Variability: Moderate 6-25 bpm Accelerations: 15X15 Decelerations: None Category: Category I Patient Care Comments: moved to room 2103 Datetime: 11/09/2023 13:19 SpO2 (%): 99
== END 2023-11-14 13:00 | disposition home or self-care (01) | DRG 806 ==
LOC: WFO 06:05 → FBP 06:07 → WFO 06:20 → FBP 06:21 → UNDOADMIN 06:34
PROVIDERS: ADMIT Obstetrics & Gynecology; ATTEND Obstetrics & Gynecology
PROC: 10E0XZZ Delivery of Products of Conception, External Approach (ICD-10-PCS; principal; 2023-11-13)
DX: O36.5930 Maternal care for other known or suspected poor fetal growth, third trimester, not applicable or unspecified (principal); O98.32 Other infections with a predominantly sexual mode of transmission complicating childbirth; Z37.0 Single live birth; A60.04 Herpesviral vulvovaginitis; Z3A.38 38 weeks gestation of pregnancy; Z79.899 Other long term (current) drug therapy; Z87.59 Personal history of other complications of pregnancy, childbirth and the puerperium; O99.344 Other mental disorders complicating childbirth; F41.9 Anxiety disorder, unspecified; F32.A Depression, unspecified
CPT/HCPCS: 59025; 59409; 80053; 85025; 86850; 86900; 86901; 99215; A9270; J7120

== ENCOUNTER 2023-12-31 12:10 | Emergency (ER) | payer MEDICAID ==
[2023-12-31 12:26] VITALS: BP 131/81; O2SAT 98
[2023-12-31 13:18] LABS: BASOPHILS % (AUTO) 0.7 %; HCT - HEMATOCRIT 37.5 % (37.0-47.0); HGB - HEMOGLOBIN 12.1 g/dL (12.0-16.0); LYMPHOCYTES % (AUTO) 3.1 %; MEAN CORPUSCULAR HEMOGLOBIN 26.8 pg (27.0-31.0); MEAN CORPUSCULAR HGB CONC 32.3 g/dL (32.0-36.0); MEAN CORPUSCULAR VOLUME 83.1 fL (81.0-99.0); MEAN PLATELET VOLUME 8.2 fL (7.9-10.8); MONOCYTES % (AUTO) 4.1 %; NEUTROPHILS % (AUTO) 90.9 %; PLT - PLATELET COUNT 253 10^3/uL (130-450); RED BLOOD COUNT 4.51 10^6/uL (4.20-5.40); RED CELL DISTRIBUTION WIDTH 13.7 % (12.0-15.0); WHITE BLOOD COUNT 22.7 x10^3/uL (4.8-10.8)
[2023-12-31 13:23] LABS: ABNORMAL LYMPHS % (MANUAL) 0 %
[2023-12-31 13:29] LABS: B. PARAPERTUSSIS- RESP PCR PAN NOT DETECTED; B. PERTUSSIS- RESP PCR PANEL NOT DETECTED; C. PNEUMONIAE- RESP PCR PANEL NOT DETECTED; CORONAVIRUS 229E-RESP PCR NOT DETECTED; CORONAVIRUS HKU1-RESP PCR NOT DETECTED; CORONAVIRUS NL63-RESP PCR NOT DETECTED; CORONAVIRUS OC43-RESP PCR DETECTED; HUMAN METAPNEUMOVIRUS NOT DETECTED; INFLUENZA A- RESP PCR PANEL NOT DETECTED; INFLUENZA B - RESP PCR PANEL NOT DETECTED; M. PNEUMONIAE- RESP PCR PANEL NOT DETECTED; PARAINFLUENZA VIRUS 1 NOT DETECTED; PARAINFLUENZA VIRUS 2 NOT DETECTED; PARAINFLUENZA VIRUS 3 NOT DETECTED; PARAINFLUENZA VIRUS 4 NOT DETECTED; RHINOVIRUS/ENTEROVIRUS NOT DETECTED; RSV- RESP PCR PANEL NOT DETECTED; SARS-CoV-2 -RESP PCR PANEL NOT DETECTED
[2023-12-31 13:36] LABS: ALBUMIN 4.2 g/dL (3.2-5.5); ALBUMIN/GLOBULIN RATIO 1.4 (1.0-2.2); ALKALINE PHOSPHATASE 105 IU/L (42-121); ALT ALANINE AMINOTRANSFERASE 16 IU/L (10-60); AST ASPARTATE AMINOTRANSFERASE 20 IU/L (10-42); BILIRUBIN,TOTAL 1.1 mg/dL (0.2-1.0); BUN - BLOOD UREA NITROGEN 7 mg/dL (6-20); CALCIUM 8.9 mg/dL (8.5-10.3); CARBON DIOXIDE - CO2 25 mmol/L (21-32); CHLORIDE 99 mmol/L (101-111); CREATININE 0.8 mg/dL (0.6-1.3); GFR - MDRD 86 (>89); GLUCOSE 110 mg/dL (74-104); LIPASE < 10 U/L (11-82); POTASSIUM 3.9 mmol/L (3.5-4.5); SODIUM 133 mmol/L (135-145); TOTAL PROTEIN 7.3 g/dL (6.4-8.9)
[2023-12-31 14:00] LABS: BAND NEUTROPHILS % (MANUAL) 17 %; DIFFERENTIAL COMMENT MANUAL DIFFERENTIAL; LYMPHOCYTES # (MANUAL) 1.4 10^3/uL (1.5-3.5); LYMPHOCYTES % (MANUAL) 6 %; METAMYELOCYTES % (MANUAL) 1 %; MONOCYTES # (MANUAL) 1.1 10^3/uL (0.0-1.0); PLATELET ESTIMATE, MANUAL NORMAL (130-450,000) (NORMAL); PLATELET MORPHOLOGY NORMAL APPEARANCE (NORMAL); RBC MORPHOLOGY (MULTIPLE) NORMAL APPEARANCE (NORMAL)
== END 2023-12-31 14:18 | disposition left against medical advice (07) ==
LOC: ED 12:10
DX: Z53.21 Procedure and treatment not carried out due to patient leaving prior to being seen by health care provider (principal)
CPT/HCPCS: 36415; 80053; 83690; 85025; 87633

== ENCOUNTER 2024-04-02 08:00 | Outpatient (CLI) | payer MEDICAID ==
[2024-04-02 21:57] LABS: BACTERIAL VAGINOSIS DNA POSITIVE (NEGATIVE); CANDIDA GLABRATA DNA NEGATIVE (NEGATIVE); CANDIDA GROUP DNA POSITIVE (NEGATIVE); CANDIDA KRUSEI DNA NEGATIVE (NEGATIVE); TRICHOMONAS VAGINALIS DNA NEGATIVE (NEGATIVE)
== END 2024-04-02 23:59 | disposition home or self-care (01) ==
LOC: LAB.WC 08:00
PROVIDERS: ATTEND Obstetrics & Gynecology
DX: N89.8 Other specified noninflammatory disorders of vagina (principal)
CPT/HCPCS: 81514